=== PATIENT | female | born 1960 | race Caucasian/White ===

== ENCOUNTER 2019-11-27 13:32 | Outpatient (CLI) | payer BC, SELFPAY ==
--- NOTE | 2019-11-27 | XR_ITS ---
WS: [id number] RIGHT SHOULDER: 3 VIEW(S) TECHNIQUE: Internal and external rotation with Y view. HISTORY: MULTIPLE JOINT PAIN COMPARISON: 11/07/2009 No fracture or dislocation or soft tissue abnormality. Glenohumeral and AC joints are unremarkable. Sclerotic lesion in the proximal RIGHT humerus was also partially visualized on the prior study from 2009. Consistent with enchondroma. XR/XR shoulder RT min 2V* [id number] IMPRESSION: 1. No acute abnormality. 2. Proximal RIGHT humeral enchondroma.
--- NOTE | 2019-11-27 | XR_ITS ---
WS: [id number] LEFT SHOULDER: 3 VIEW(S) TECHNIQUE: Internal and external rotation with Y view. HISTORY: MULTIPLE JOINT PAIN COMPARISON: None available. No fracture or dislocation or soft tissue abnormality. Glenohumeral and AC joints are unremarkable. XR/XR shoulder LT min 2V* [id number] IMPRESSION: Normal LEFT shoulder.
== END 2019-11-27 13:33 | disposition home or self-care (01) ==
LOC: RADOUTREAD 11-28 07:25
PROVIDERS: Family Provider Internal Medicine; Visit Provider Internal Medicine
DX: Z76.89 Persons encountering health services in other specified circumstances (principal)

== ENCOUNTER 2019-12-24 14:09 | Outpatient (CLI) | payer BC, SELFPAY ==
--- NOTE | 2019-12-24 14:17 | XR_ITS ---
WS: [id number] SCREENING DEXA SCAN [employer] CLINICAL INFORMATION: POST MENOPAUSAL COMPARISON: None. FINDINGS: The L1-L4 bone mineral density measures 0.917 g/cm2. This corresponds to a T score score of -2.2 and Z score of -1.2. Left femoral neck bone mineral density measures 0.828 g/cm2. This corresponds to a T score of -1.4 an d Z score of -0.6. Right femoral neck bone mineral density measures 0.835 g/cm2. This corresponds to a T score -1.4of an d Z score of -0.6. Mean femoral neck bone mineral density measures 0.831 g/cm2. This corresponds to a T score of -1.4 an d Z score of -0.6. XR/XR DEXA axial skeleton* [id number] IMPRESSION: Osteopenia Patient's FRAX calculated 10 year probability for major osteoporotic fracture i s 18.4 % and osteoporotic hip fracture is 5.5%.
== END 2019-12-24 14:10 | disposition home or self-care (01) ==
LOC: RADWPI 14:13
PROVIDERS: Family Provider Internal Medicine; PCP Internal Medicine; Visit Provider Internal Medicine
DX: Z78.0 Asymptomatic menopausal state (principal)
CPT/HCPCS: 77080

== ENCOUNTER 2020-05-21 09:48 | Emergency (ER) | payer BC, SELFPAY ==
[2020-05-21 09:55] VITALS: BP 142/111; PULSE 83; RESP 18; TEMP 36.9; O2SAT 98; BMI 30.3
--- NOTE | 2020-05-21 09:57 | ED_ITS ---
HPI - Back Pain/Injury General: Chief Complaint: Back Pain/Injury Stated Complaint: BACK PAIN Time Seen by Provider: 05/21/20 09:50 Source: patient Mode of arrival: ambulatory Limitations: no limitations History of Present Illness: HPI Narrative: Patient is a 59-year-old female who presents to ED today with a complaint of lower back pain. Patient tells me she has a history of chronic back pain and has recently seen her PCP for evaluation. Patient was referred to pain management and she has had her initial consultation completed. For insurance purposes they wanted patient to complete a course of physical therapy prior to being accepted to pain management. Patient tells me she began physical therapy recently and states since then her back pain has been excruciating. She is reporting radiation down the bilateral aspects of her posterior thighs. She does tell me over the past few weeks while working she has noticed episodes of urinary incontinence. She is complaining of pain radiating around into her right groin. Patient has not had any episodes of urinary retention. She is not having any bowel incontinence. MD elicited complaint: back pain Pertinent past history: prior back pain Timing: constant Severity: severe Similar Symptoms Previously: Yes Quality: sharp Location: lumbar spine Radiation: left leg below the knee and right leg below the knee Exacerbating factors: movement and walking Relieving factors: none Associated symptoms: Deny abdominal pain, chills, dysuria, fever(s) or urinary urgency Review of Systems Const: Denies: fever(s), chills or body aches Card: Denies: chest pain Resp: Denies: dyspnea GI: Denies: abdominal pain : Reports: urinary incontinence; Denies: flank pain, difficulty voiding, dysuria, urinary frequency, urinary urgency, urinary hesitancy or dribbling Musc: Reports: back pain; Denies: neck pain, joint pain or joint swelling Skin/Breast: Denies: rash Neuro: Reports: sensory changes (tingling to bilateral LEs) PFSH ED PFSH: Family History (Updated 12/09/19 @ 16:06 by Brea Villalba LPN) Mother Diabetes Cancer Dementia Father Diabetes Cancer Denies family history of CAD (coronary artery disease) Clotting disorder Hyperlipidemia Psychiatric illness Chronic kidney disease (CKD) Suicide Anesthesia complication Bleeding disorder Family history of premature coronary artery disease Lung disease Hypertension Stroke Social History Smoking and tobacco status: current every day smoker cigarettes Packs smoked per day: 1 Alcohol intake: never Current occupational status: employed Physical Exam Const: COMMON NORMALS: patient oriented x3, no limitations, alert and well nourished GENERAL APPEARANCE: cooperative OTHER: appears to be in pain HENMT: COMMON NORMALS: normocephalic and atraumatic HEAD & SCALP: normocephalic and atraumatic Resp: COMMON NORMALS: normal respiratory effort and clear to auscultation bilaterally AUSCULTATION: clear to auscultation bilaterally Cardio: COMMON NORMALS: regular rate and regular rhythm RATE: regular rate RHYTHM: regular rhythm : COMMON NORMALS: Yes no CVA tenderness BLADDER/KIDNEY EXAM: Yes no CVA tenderness Back/Pelvis: COMMON NORMALS: no CVA tenderness THORACIC SPINE/UPPER BACK: Yes normal to inspection and Yes thoracic ROM normal LUMBAR SPINE/LOWER BACK: Yes lumbar spinal tenderness (lower L spine) PELVIS: Yes buttocks normal SACROILIAC JOINTS: Yes SI joint(s) abnormal SI joint details: tender to pa lpation Extremity: GENERAL: Yes normal exam except as noted Neuro: COMMON NORMALS: patient oriented x3, moves all extremities, no focal motor deficits and no sensory deficits noted SENSORIUM/ORIENTATION: Yes alert GAIT: Yes Antalgic gait present Skin: COMMON NORMALS: no rashes or lesions noted GENERAL SKIN EXAM: no rashes or lesions noted Course Vital Signs: Vital signs: Vital Signs Temperature 98.5 F 05/21/20 09:55 Pulse Rate 70 05/21/20 11:42 Respiratory Rate 18 05/21/20 11:42 Blood Pressure 147/96 05/21/20 11:42 Pulse Oximetry 96 05/21/20 11:42 MDM - Back Pain/Injury MDM Narrative: Medical decision making narrative: pt feels better here after IV meds; recommend continued follow up with PCP, PT, and pain management Lab Data: Labs: Lab Results 05/21/20 Range/Units 11:25 Urine Color Yellow (Yellow) Urine Appearance Clear (CLEAR) Urine pH 5 (5-7) Ur Specific Gravit y 1.020 (1.005-1.030) Urine Protein Neg (Negative) Urine Glucose (UA) Norm (Normal) Urine Ketones Negative (Negative) Urine Blood Neg (Negative) Urine Nitrate Negative (Negative) Urine Bilirubin Neg (NEGATIVE) Urine Urobilinogen Norm (Negative) mg/dL Ur Leukocyte Nasrin ase Trace H (Negative) Urine RBC 0-4 H (0-2) /hpf Urine WBC 5-10 H (0-5) /hpf Ur Squamous Epith Cells 15-25 H (0-5) Amorphous Sediment Not Reportable Urine Bacteria Trace (NONE) Hyaline Casts 0-4 H Urine Mucus 2+ Imaging Data^: CT lumbar: Radiologist's impression: [address] [place] [address] CT Scan Report Signed Patient: Hayley Chun Unit #: [id number] : 1960 Age/Sex: 59 / F ADM Date: 04/29 02/15 Loc: ER Room/Bed: Attending Dr: Ordering Provider/Ordering MD: Corinna Nunes Date of Service: 05/21/20 Procedure(s): CT lumbar spine wo con* [id number] Accession Number(s): [id number] Report Number: [id number] WS: [id number] CT LUMBAR SPINE, noncontrast. HISTORY: radiculopathy; urinary incontinence; difficulty with ambulation. TECHNIQUE: Contiguous 2.5 mm axial imaging are performed. Sagittal and coronal reformats are submitted and reviewed. All CT scans at [facility] use at least one of these dose optimization techniques: automated exposure control; mA and/or kV adjustment per patient size (includes targeted exams where dose is matched to clinical indication); or iterative reconstruction. IV contrast: None DLP: 2124.22 mGy.cm COMPARISON: 01/05/2012 L5 anterolisthesis by 6 mm. No pars defects. Vertebral body heights are well- preserved. No fractures are identified. There is severe facet joint arthritis at L4-5 and L5- S1 bilaterally. L1-2: Normal. L2-3: Mild annular disc bulging without stenosis. L3-4: Mild annular disc bulging without stenosis. L4-5: Moderate annular disc bulging with slight effacement of ventral CSF. No stenosis. L5-S1: Slight unroofing of the disc due to anterolisthesis. Mild bilateral foraminal narrowing, LEFT greater than RIGHT. Prior cholecystectomy. There is mild breathing motion artifact throughout the retroperitoneum. No abnormality is identified identified taking into consideration the extent of artifact. CT/CT lumbar spine wo con* [id number] IMPRESSION: 1. No significant central or foraminal stenosis. 2. Mild bilateral foraminal stenosis at L5-S1, LEFT greater than RIGHT. 3. Grade 1 anterolisthesis of L5. 4. Severe facet joint arthritis at L4-5 and L5-S1. Dictated By: Caitlin Johnson DO Signed By: Caitlin Johnson DO Signed Date/Time: 05/21/20 1048 DD/ 1043 Discharge Plan Discharge Patient Disposition: Home Clinical Impression: Acute exacerbation of chronic low back pain Condition: Stable Prescriptions: New cyclobenzaprine 10 mg tablet 10 mg PO TID Qty: 14 RF: 0 Medrol ([place]) 4 mg tablets,dose pack See Rx Instructions .ROUTE .COMPLEX Qty: 21 RF: 0 No Action Symbicort 160-4.5 mcg/actuation HFA aerosol inhaler 2 puff INHALATION BID RF: 0 albuterol sulfate [Ventolin HFA] 90 mcg/actuation HFA aerosol inhaler 2 puff INHALATION QID PRN (Reason: Shortness Of Breath) RF: 0 amitriptyline 10 mg tablet 10 mg PO BEDTIME RF: 0 hydrocodone-acetaminophen 5-325 mg tablet 1 - 2 tab PO Q8H PRN (Reason: Pain) RF: 0 alendronate 70 mg tablet 70 mg PO Q7D RF: 0 ibuprofen 200 mg Tablet 600 mg PO PRN RF: 0 omeprazole 20 mg capsule,delayed release(DR/EC) 20 mg PO DAILY RF: 0 Vitamin D3 100 mcg (4,000 unit) Capsule 100 mcg PO DAILY RF: 0 Discharge Orders: Discharge Order (Routine); Ordered 05/21/20 Ordered By: Corinna Nunes Referrals: Adama Zuñiga DO [Primary Care Provider] - Discharge Date/Time: 05/21/20 11:42 Coding Level of Care Code ED Painter Ordnance for Chg Fwd Exam Comprehensive
--- NOTE | 2020-05-21 10:12 | CT_ITS ---
WS: [id number] CT LUMBAR SPINE, noncontrast. HISTORY: radiculopathy; urinary incontinence; difficulty with ambulation. TECHNIQUE: Contiguous 2.5 mm axial imaging are performed. Sagittal and coronal reformats are submitte d and reviewed. All CT scans at [facility] use at least one of these dose optimization te chniques: automated exposure control; mA and/or kV adjustment per patient size (includes targeted exa ms where dose is matched to clinical indication); or iterative reconstruction. IV contrast: None DLP: 2124.22 mGy.cm COMPARISON: 01/05/2012 L5 anterolisthesis by 6 mm. No pars defects. Vertebral body heights are well-preserved. No fractures are identified. There is severe facet joint arthritis at L4-5 and L5-S1 bilaterally. L1-2: Normal. L2-3: Mild annular disc bulging without stenosis. L3-4: Mild annular disc bulging without stenosis. L4-5: Moderate annular disc bulging with slight effacement of ventral CSF. No stenosis. L5-S1: Slight unroofing of the disc due to anterolisthesis. Mild bilateral foraminal narrowing, LEFT greater than RIGHT. Prior cholecystectomy. There is mild breathing motion artifact throughout the retroperitoneum. No abn ormality is identified identified taking into consideration the extent of artifact. CT/CT lumbar spine wo con* [id number] IMPRESSION: 1. No significant central or foraminal stenosis. 2. Mild bilateral foraminal stenosis at L5-S1, LEFT greater than RIGHT. 3. Grade 1 anterolisthesis of L5. 4. Severe facet joint arthritis at L4-5 and L5-S1.
--- NOTE | 2020-05-21 10:29 | PC.NURSE ---
pt to CT by stretcher with tech
[2020-05-21] MEDS: orphenadrine 30 mg/mL Inj 2 mL 60 MG IVP (10:39)
[2020-05-21] MEDS: dexamethasone 4 mg/mL INJ 8 MG IVP (10:39)
[2020-05-21] MEDS: ketorolac 30 mg/mL INJ IVP (10:39)
[2020-05-21 10:49] VITALS: O2SAT 97
[2020-05-21 11:16] VITALS: BP 144/97; PULSE 70; RESP 18; O2SAT 95
[2020-05-21 11:42] VITALS: BP 147/96; PULSE 70; RESP 18; O2SAT 96
[2020-05-21 11:46] LABS: Add Urine Microscopic? YES; Bilirubin Urine Neg (NEGATIVE); Blood Urine Neg (Negative); Glucose Urine UA Norm (Normal); Ketones Urine Negative (Negative); Leukocyte Esterase Urine Trace (Negative); Nitrate Urine Negative (Negative); Protein Urine Neg (Negative); Urine Appearance Clear (CLEAR); Urine Color Yellow (Yellow); Urobilinogen Urine Norm (Negative); pH Urine 5 (5-7)
[2020-05-21 11:59] LABS: Bacteria Urine TRACE; Mucus Urine 2+; RBC Urine 0-4 /hpf (0-2); Squamous Epithelial Cell Urine 15-25 (0-5)
[2020-05-21 12:00] LABS: Add Urine Culture? No; Hyaline Casts Urine 0-4
== END 2020-05-21 11:42 | disposition home or self-care (01) ==
PROVIDERS: Emergency Provider Physician Assistant; PCP Internal Medicine
DX: G89.29 Other chronic pain (principal); M54.5 Low back pain; F17.210 Nicotine dependence, cigarettes, uncomplicated
CPT/HCPCS: 12345; 72131; 81001; 81003; 96374; 96375; 99283; J1100; J1885; J2360

== ENCOUNTER → 2022-04-10 09:50 | Outpatient (BNVA) | payer OTHER, SELFPAY | PROVIDERS: PCP Internal Medicine; Referring Provider Internal Medicine; Visit Provider Internal Medicine Rheumatology | DX: M25.50 Pain in unspecified joint (principal); I77.6 Arteritis, unspecified; M19.90 Unspecified osteoarthritis, unspecified site; M15.9 Polyosteoarthritis, unspecified; M47.816 Spondylosis without myelopathy or radiculopathy, lumbar region; R21 Rash and other nonspecific skin eruption | CPT/HCPCS: 72170; 73130; 73630; 86036 ==

== ENCOUNTER 2022-06-19 14:10 | Outpatient (CLI) | payer OTHER, SELFPAY ==
--- NOTE | 2022-06-19 14:16 | XR_ITS ---
WS: [id number] SCREENING DEXA SCAN [employer] CLINICAL INFORMATION: OSTEOPOROSIS COMPARISON: December 24, 2019 FINDINGS: The L1-L4 bone mineral density measures 0.987 g/cm2. This corresponds to a T score score of -1.6 and Z score of -0.5. Left femoral neck bone mineral density measures 0.837 g/cm2. This corresponds to a T score of -1.4 an d Z score of -0.5. Right femoral neck bone mineral density measures 0.864 g/cm2. This corresponds to a T score -1.1of an d Z score of -0.3. Mean femoral neck bone mineral density measures 0.850 g/cm2. This corresponds to a T score of -1.2 an d Z score of -0.4. XR/XR DEXA axial skeleton* [id number] IMPRESSION: Osteopenia lumbar spine and femoral necks. Patient's FRAX calculated 10 year probability for major osteoporotic fracture i s 13.0 % and osteoporotic hip fracture is 4.0%. Bone mineral density in the lumbar spine has increased +7.6% since 2019. Bone mineral density in the femoral necks increased +2.3% since 2020.
== END 2022-06-19 14:11 | disposition home or self-care (01) ==
LOC: RAD 14:11
PROVIDERS: PCP Internal Medicine; Visit Provider Internal Medicine
DX: M81.0 Age-related osteoporosis without current pathological fracture (principal); M85.88 Other specified disorders of bone density and structure, other site
CPT/HCPCS: 77080

== ENCOUNTER 2022-07-26 12:56 | Outpatient (CLI) | payer OTHER, SELFPAY ==
--- NOTE | 2022-07-26 13:16 | MM_ITS ---
WS: [id number] VIEWS: MLO and CC views both breasts. 3D digital tomosynthesis is also included in this exam. Comparison made with prior exam of 06/17/2019. Findings: There was no sign of mass, architectural distortion or suspicious calcification in either breast. Fa [place]ty MM/[place] [id number] Impression: BI-RADS: 1-Negative FOLLOW-UP: 1 Year Follow-up This mammogram was also analyzed by the Computer Aided Detection System R2 Imag e Management Department Chair.
== END 2022-07-26 12:57 | disposition home or self-care (01) ==
LOC: RAD 12:57
PROVIDERS: PCP Family Medicine; Visit Provider Family Medicine
DX: Z12.31 Encounter for screening mammogram for malignant neoplasm of breast (principal)
CPT/HCPCS: 77063; 77067

== ENCOUNTER → 2022-08-11 11:52 | Outpatient (BNVA) | payer OTHER, SELFPAY | PROVIDERS: PCP Family Medicine; Visit Provider Family Medicine | DX: R07.9 Chest pain, unspecified (principal); J45.909 Unspecified asthma, uncomplicated | CPT/HCPCS: 80053; 83735; 84443; 85025 ==

== ENCOUNTER 2022-08-25 20:52 | Emergency (ER) | payer OTHER, SELFPAY ==
[2022-08-25 21:09] VITALS: BP 167/92; PULSE 75; RESP 16; TEMP 36.4; O2SAT 96; BMI 31.1
--- NOTE | 2022-08-25 21:13 | ECG_ITS ---
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
--- NOTE | 2022-08-25 21:58 | XRR_ITS ---
PROCEDURE INFORMATION: Exam: XR Chest Exam date and time: 08/25/2022 10:34 PM Age: 61 years old Clinical indication: Pain; Chest pressure; Additional info: Cp TECHNIQUE: Imaging protocol: Radiologic exam of the chest. Views: 1 view. COMPARISON: CR XR shoulder RT min 2V* [id number] 11/27/2019 1:33 PM FINDINGS: Lungs: Unremarkable. No consolidation. Pleural spaces: Unremarkable. No pleural effusion. No pneumothorax. Heart/Mediastinum: Unremarkable. No cardiomegaly. Bones/joints: Unremarkable. XR/XR chest 1V portable [id number] IMPRESSION: No acute findings.
[2022-08-25 22:24] LABS: Basophils # 0.1 10^3/uL (0.0-0.1); Basophils % 0.6 %; Eosinophils # 0.2 10^3/uL (0.0-0.8); Eosinophils % 2.5 %; Hematocrit 44.6 % (37.0-47.0); Hemoglobin 14.5 g/dL (11.5-15.3); Lymphocytes # 2.8 10^3/uL (0.8-4.8); Lymphocytes % 29.4 %; Mean Corpuscular HGB Conc 32.5 g/dL (30.0-36.0); Mean Corpuscular Hemoglobin 28.4 pg (28.0-34.0); Mean Corpuscular Volume 87.5 fl (81-99); Mean Platelet Volume 11.2 fL (7.4-10.4); Monocytes # 0.7 10^3/uL (0.2-0.9); Monocytes % 7.2 %; Neutrophils # 5.69 10^3/uL (1.8-7.7); Neutrophils % 60.1 %; Nucleated Red Blood Cells % 0 %; Platelet Count 286 10^3/cmm (130-400); Red Cell Distribution Width 13.2 % (12.1-15.1); White Blood Count 9.5 10^3/uL (4.0-10.0)
--- NOTE | 2022-08-25 22:26 | W.ED.CHESTPA ---
HPI - Chest Pain General: Chief Complaint: Chest Pain Stated Complaint: cp, jaw pain, high bp Time Seen by Provider: 08/25/22 21:30 Source: patient History of Present Illness: 61-year-old female with no prior history of coronary disease. She has been having chest discomfort with shortness of breath on and off for a couple of weeks. She has an outpatient stress test scheduled for next week. She presents today, because she was more short of breath than she has been. She continues to experience some chest discomfort. She denies fever. She notes that she has had a tremor lately. She denies recent illness otherwise. She complains of heart pounding type symptoms with these episodes as well MD complaint: chest pain Pertinent past history: other Onset (ago): week(s) Timing of current episode: episodic Prior episodes: Yes Onset: during rest Pain location: substernal Pain radiation: neck, jaw/teeth and other Quality: tightness and aching Relieving factors: nothing Exacerbating factors: nothing Associated symptoms: Reports dyspnea and palpitations; Deny abdominal pain, diaphoresis, fever(s), leg edema, nausea, syncope or vomiting Treatment prior to arrival: none Review of Systems Const: Denies: fever(s) or diaphoresis ENMT: Denies: throat pain, odynophagia, nasal congestion or sinus pain Card: Reports: chest pain and palpitations; Denies: syncope Resp: Reports: dyspnea; Denies: productive cough or non-productive cough GI: Denies: abdominal pain, nausea or vomiting Musc: Reports: neck pain Neuro: Reports: headache(s) PFSH ED PFSH: Medical History Asthma COPD (chronic obstructive pulmonary disease) Degenerative joint disease (DJD) of lumbar spine GERD (gastroesophageal reflux disease) High risk for hip fracture Joint pain Migraines Osteoarthritis, generalized Osteopenia Skin rash Tobacco use Surgical History History of appendectomy History of cholecystectomy History of hysterectomy with bilateral oophorectomy Hx of eye surgery Family History Mother Diabetes Cancer Dementia Father Diabetes Cancer Brother Diabetes Denies family history of CAD (coronary artery disease) Clotting disorder Hyperlipidemia Psychiatric illness Chronic kidney disease (CKD) Suicide Anesthesia complication Bleeding disorder Family history of premature coronary artery disease Lung disease Hypertension Stroke Social History Smoking and tobacco status: current every day smoker cigarettes Packs smoked per day: 1 Years cigarettes smoked: 43 Alcohol intake: never Lives independently: Yes Household members: spouse Marital status: Current occupational status: employed 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 Physical Exam Const: GENERAL APPEARANCE: cooperative and anxious; not ill appearing HENMT: COMMON NORMALS: normocephalic, atraumatic and Normal external nose present HEAD & SCALP: normocephalic and atraumatic FACE & SINUS: normal facial exam and face symmetric NOSE: Normal external nose present Eye: COMMON NORMALS: Equal, round and reactive pupils present and EOMs intact bilaterally PUPIL: Yes Equal, round and reactive pupils present Neck/C-Spine: GENERAL: Yes trachea midline Chest: CHEST: Yes Symmetrical chest wall rise Resp: COMMON NORMALS: normal respiratory effort, No use of accessory muscles and clear to auscultation bilaterally AUSCULTATION: clear to auscultation bilaterally Cardio: COMMON NORMALS: regular rate and regular rhythm RATE: regular rate RHYTHM: regular rhythm GI: COMMON NORMALS: Normal to inspection, nondistended, normoactive bowel sounds present and Soft to palpation PALPATION: Yes Soft to palpation Neuro: WILFRED COMA SCALE: document GCS findings [place] coma scale eye opening: Spontaneous [place] coma scale verbal response: Orientated [place] coma scale motor response: Obey commands Wilfred coma scale total score: 15 Psych: COMMON NORMALS: mental status grossly normal and cooperative Skin: COMMON NORMALS: no rashes or lesions noted GENERAL SKIN EXAM: no rashes or lesions noted Course Vital Signs: Vital signs: Vital Signs Temperature 97.5 F L 08/25/22 21:09 Pulse Rate 73 08/26/22 02:18 Respiratory Rate 22 H 08/26/22 02:18 Blood Pressure 158/80 08/26/22 02:18 Pulse Oximetry 94 08/26/22 01:39 Oxygen Delivery Me thod 08/26/22 01:39 MDM - Chest Pain Medical Decision Making 61-year-old female with bouts of significant chest discomfort. They seem to come and go a bit. She has had hypertension on and off as well. She has had a couple of episodes in the ER. She was given morphine, which seems to help. She was also given nebulizer treatment which she believes helped as well. Besides hypertension, her vitals have been stable. Blood pressure has been near normal at times. Her EKG shows a normal sinus rhythm with normal axis and intervals. Rate is 70. There are no acute ST changes. Her troponin was 9 at baseline and 7.1 at 120 minutes. CBC is not remarkable. BMP is normal. Chest x-ray is not remarkable. On the second time she had a bout of crushing chest pain in the ER, with some hypertension, aortic dissection was considered. CTA of the chest was ordered and shows no pneumonia, PE, or dissection. She does have some peribronchial inflammation suggestive of bronchitis. She will be treated for this, especially since she improved with her breathing treatment she has an outpatient stress test scheduled next week, and she has been asked to keep that appointment. She knows to return for any return of her chest pain. Lab Data : 08/25/22 22:19 08/25/22 22:19 Radiology Impressions Chest X-Ray 08/25/22 21:58 IMPRESSION: No acute findings. Chest CTA 08/25/22 23:49 IMPRESSION: 1. Negative for pulmonary embolism. 2. Suspect small airways disease. 3. Acute a chronic bronchitis cannot be excluded. Laboratory Results WBC 9.5 10^3/uL (4.0-10.0) 08/25/22 22:19 RBC 5.10 10^6/uL (4.1-5.3) 08/25/22 22:19 Hgb 14.5 g/dL (11.5-15.3) 08/25/22 22:19 Hct 44.6 % (37.0-47.0) 08/25/22 22:19 MCV 87.5 fl (81-99) 08/25/22 22:19 MCH 28.4 pg (28.0-34.0) 08/25/22 22:19 MCHC 32.5 g/dL (30.0-36.0) 08/25/22 22:19 RDW 13.2 % (12.1-15.1) 08/25/22 22:19 Plt Count 286 10^3/cmm (130-400) 08/25/22 22:19 MPV 11.2 fL (7.4-10.4) H 08/25/22 22:19 Neut % (Auto) 60.1 % 08/25/22 22:19 Lymph % (Auto) 29.4 % 08/25/22 22:19 [place] % (Auto) 7.2 % 08/25/22 22:19 Eos % (Auto) 2.5 % 08/25/22 22:19 Baso % (Auto) 0.6 % 08/25/22 22:19 Neut # (Auto) 5.69 10^3/uL (1.8-7.7) 08/25/22 22:19 Lymph # (Auto) 2.8 10^3/uL (0.8-4.8) 08/25/22 22:19 [place] # (Auto) 0.7 10^3/uL (0.2-0.9) 08/25/22 22:19 Eos # (Auto) 0.2 10^3/uL (0.0-0.8) 08/25/22 22:19 Baso # (Auto) 0.1 10^3/uL (0.0-0.1) 08/25/22 22:19 Nucleated RBC % (auto) 0 % 08/25/22 22:19 Nucleated RBCs # 0.0 /100WBC 08/25/22 22:19 PT 13.40 SECONDS (12.1-14.9) 08/25/22 22:33 INR 0.99 (0.8-1.2) 08/25/22 22:33 APTT 30.0 SECONDS (23.9-36.7) 08/25/22 22:33 Sodium 137 mmol/L (136-145) 08/25/22 22:19 Potassium 4.1 mmol/L (3.5-5.1) 08/25/22 22:19 Chloride 102 mmol/L (98-107) 08/25/22 22:19 Carbon Dioxide 24 mmol/L (22-29) 08/25/22 22:19 Anion Gap 15.1 (5-19) 08/25/22 22:19 BUN 11 mg/dL (8-23) 08/25/22 22:19 Creatinine 0.7 mg/dL (0.5-0.9) 08/25/22 22:19 GFR Calculation 84.5 mL/min (90-130) L 08/25/22 22:19 Glucose 101 mg/dL (65-115) 08/25/22 22:19 Calculated Osmolality 284 mOsm/kg (285-295) L 08/25/22 22:19 Calcium 9.4 mg/dL (8.5-10.5) 08/25/22 22:19 Magnesium 2.1 mg/dL (1.7-2.3) 08/25/22 22:19 Total Bilirubin 0.6 mg/dL (0.15-1.2) 08/25/22 22:19 AST 21 U/L (0-32) 08/25/22 22:19 ALT 22 U/L (0-33) 08/25/22 22:19 Alkaline Phosphatase 92 U/L (35-105) 08/25/22 22:19 Troponin T Baseline 9 ng/L (0-10) 08/25/22 22:19 Troponin T 120 Minute 7.10 ng/L (0-10) 08/26/22 00:50 Delta Troponin T -1.90 ABS# (0-10) L 08/26/22 00:50 NT-Pro-B Natriuret Pep 124 pg/mL (0-125) 08/25/22 22:19 Total Protein 7.4 g/dL (6.6-8.7) 08/25/22 22:19 Albumin 4.5 g/dL (3.5-5.2) 08/25/22 22:19 Globulin 2.9 g/dL (1.3-4.6) 08/25/22 22:19 TSH 2.05 uIU/mL (0.27-4.20) 08/25/22 22:19 Discharge Plan Discharge Patient Disposition: Home Clinical Impression: Chest pain, Bronchitis Condition: Stable Prescriptions: New doxycycline hyclate 100 mg tablet 100 mg PO BID 7 Days Qty: 14 0RF Medrol ([place]) 4 mg tablets,dose pack See Rx Instructions .ROUTE .COMPLEX Qty: 21 0RF Rx Instructions: orally per package directions No Action Symbicort 160-4.5 mcg/actuation HFA aerosol inhaler 2 puff INHALATION BID albuterol sulfate [Ventolin HFA] 90 mcg/actuation HFA aerosol inhaler 2 puff INHALATION QID PRN (Reason: Shortness Of Breath) Centrum Women 18-400 mg-mcg tablet 1 tab PO DAILY meloxicam 15 mg tablet 15 mg PO DAILY hydrocodone-ibuprofen 7.5-200 mg tablet 1 tab PO Q6H PRN sertraline 50 mg tablet PO pimecrolimus 1 % cream topical alendronate 70 mg tablet 70 mg PO Q7D Rx Instructions: PT STATES SHE TAKES ON SUNDAYS omeprazole 20 mg capsule,delayed release(DR/EC) 20 mg PO DAILY Vitamin D3 100 mcg (4,000 unit) Capsule 100 mcg PO DAILY Discharge Orders: Discharge ED (Routine); Ordered 08/26/22 Ordered By: Luis Fermin Referrals: Tarah Aquino MD [Primary Care Provider] - 1-3 days Discharge Diet: Advance as tolerated Discharge Activity: Increase activity as tolerated Patient Instructions: Chest Pain (ED), Acute Bronchitis (ED), Opioid Safety, Pain Management Activity Restrictions/Additional Instructions: Use your inhaler every 4 hours while awake for the next 48 hours, then as needed. Other medications as directed. Return for worsening chest pain despite treatment, worsening shortness of breath despite treatment, fever greater than 100 despite 2 or 3 doses of antibiotics, any other concerning symptoms. Keep your appointment for your stress test. Measure your blood pressure twice daily and report numbers to your doctor. Coding Level of Care Code ED Calculus Professor for [place] Fwd Exam Comprehensive
[2022-08-25] MEDS: morphine 4 mg/mL SDV 1 mL IVP ×2 (22:49→23:53)
[2022-08-25] MEDS: ondansetron 2 mg/ML SDV 2 mL 4 MG IVP ×2 (22:49→23:53)
[2022-08-25 22:55] LABS: INR 0.99 (0.8-1.2)
[2022-08-25 22:56] LABS: Troponin(5th) Baseline 9 ng/L (0-10)
[2022-08-25 23:02] LABS: Alanine Aminotransferase 22 U/L (0-33); Albumin Level 4.5 g/dL (3.5-5.2); Alkaline Phosphatase 92 U/L (35-105); Anion Gap 15.1 (5-19); Aspartate Amino Transferase 21 U/L (0-32); Blood Urea Nitrogen 11 mg/dL (8-23); Calcium 9.4 mg/dL (8.5-10.5); Carbon Dioxide 24 mmol/L (22-29); Chloride 102 mmol/L (98-107); Creatinine Clr Calc Pharmacy 76.1209; Globulin 2.9 g/dL (1.3-4.6); Glomerular Filtration Rate 84.5 mL/min (90-130); Glucose 101 mg/dL (65-115); Magnesium 2.1 mg/dL (1.7-2.3); NT Pro B Type Natriuretic Pept 124 pg/mL (0-125); Osmolality Calculated 284 mOsm/kg (285-295); Potassium 4.1 mmol/L (3.5-5.1); Sodium 137 mmol/L (136-145); Thyroid Stimulating Hormone 2.05 uIU/mL (0.27-4.20); Total Bilirubin 0.6 mg/dL (0.15-1.2); Total Protein 7.4 g/dL (6.6-8.7)
--- NOTE | 2022-08-25 23:49 | CTR_ITS ---
PROCEDURE INFORMATION: Exam: CTA Chest With Contrast Exam date and time: 08/26/2022 12:22 AM Age: 61 years old Clinical indication: Pain; Chest pressure; Additional info: HTN, chest pain TECHNIQUE: Imaging protocol: Computed tomographic angiography of the chest with contrast. 3D rendering (Not supervised by radiologist): MIP and/or 3D reconstructed images were created by the technologist. Radiation optimization: All CT scans at this facility use at least one of these dose optimization techniques: automated exposure control; mA and/or kV adjustment per patient size (includes targeted exams where dose is matched to clinical indication); or iterative reconstruction. Contrast material: OMNI 350; Contrast volume: 100 ml; Contrast route: INTRAVENOUS (IV); COMPARISON: CR (CHEST, ) 08/25/2022 10:34 PM RADIATION DOSE METRICS: Total DLP (mGy-cm): 386.78 FINDINGS: Pulmonary arteries: Normal. No pulmonary emboli. Aorta: Unremarkable. No aortic aneurysm. No aortic dissection. Lungs: Mosaic attenuation changes of the lung parenchyma. Negative for consolidation. Mild bronchial wall thickening. No peripheral honeycombing. Pleural spaces: Unremarkable. No pneumothorax. No pleural effusion. Heart: Unremarkable. No cardiomegaly. No pericardial effusion. Lymph nodes: Unremarkable. No enlarged lymph nodes. Gallbladder and bile ducts: Cholecystectomy. Mildly dilated common bile duct. Bones/joints: Unremarkable. No acute fracture. Soft tissues: Unremarkable. CT/CT angio chest PE protcl [id number] IMPRESSION: 1. Negative for pulmonary embolism. 2. Suspect small airways disease. 3. Acute a chronic bronchitis cannot be excluded.
--- NOTE | 2022-08-25 23:54 | ECG_ITS ---
[facility] Test Date: 2022-08-25 Pat Name: Hayley Chun Department: Room: Gender: Female Community Support Associate: : 1960 Requested By: Luis Roy Order Number: [id number] Ej MD: Guerita Farah M.D. Measurements Intervals Beeler Rate: 69 P: 71 CO: 148 QRS: 21 QRSD: 75 T: 11 QT: 391 QTc: 421 Interpretive Statements SINUS RHYTHM Compared to ECG 08/25/2022 21:13:21 No significant changes Electronically Signed On 08-26-2022 7:47:41 CDT by Guerita Farah M.D. [id number]
--- NOTE | 2022-08-25 23:57 | PC.NURSE ---
PT pushed call light and stated she was having sudden, severe chest paib. It was not radiating and it was not making her nauseas. Dr notified. EKG ran. Morphine and zofran given.
[2022-08-26] MEDS: lidocaine 2% viscous 15 ML, aluminum-mag hydrox-simethicon 30 ML, sucralfate oral liq 1 GM PO (00:05)
[2022-08-26] MEDS: iohexol 350 mg/mL 100 mL Btl IV (00:28)
[2022-08-26 00:50] VITALS: PULSE 67; RESP 16
[2022-08-26 01:39] VITALS: PULSE 65; RESP 15; O2SAT 94
[2022-08-26 01:45] VITALS: PULSE 66
[2022-08-26] MEDS: doxycycline 100 mg Tablet PO (02:08)
[2022-08-26 02:18] VITALS: BP 158/80; PULSE 73; RESP 22
== END 2022-08-26 02:19 | disposition home or self-care (01) ==
PROVIDERS: Emergency Provider Emergency Medicine; PCP Family Medicine
DX: R07.9 Chest pain, unspecified (principal); J40 Bronchitis, not specified as acute or chronic; J44.9 Chronic obstructive pulmonary disease, unspecified; F17.210 Nicotine dependence, cigarettes, uncomplicated
CPT/HCPCS: 36415; 71045; 71275; 80053; 83735; 83880; 84443; 84484; 85025; 85610; 85730; 93005; 94640; 96374; 96375; 96376; 99285; J2270; J2405; J2930; J3535; Q9967

== ENCOUNTER 2022-09-27 05:36 | Day surgery (SDC) | payer OTHER, SELFPAY ==
[2022-09-25 10:49] VITALS: BMI 31.4
[2022-09-27 06:11] VITALS: BP 134/78; PULSE 72; RESP 18; TEMP 36.1; O2SAT 97
--- NOTE | 2022-09-27 06:22 | P.ANESASSM_ITS ---
Pre-Anesthetic Assessment Height/Weight: Height 1.55 m Weight 75.296 kg Temp Pulse Resp BP Pulse Ox O2 Del Method 97 F L 72 18 134/78 97 09/27/22 06:11 09/27/22 06:11 09/27/22 06:11 09/27/22 06:11 09/27/22 06:11 09/27/22 06:11 Preop Diagnosis: Screening Operation Date: 09/27/22 07:00 Proposed Procedures p Colonoscopy 43850,Z12.11(Not Applicable) - Dada Anderson DO Familial anesthetic complications: None Was Beta Zak taken within 24 hours: N/A Was Clonidine taken within 24 hours: N/A Last intake: Intake Last Liquid Date 09/26/22 Last Liquid Time 20:30 Last Solid Date 09/25/22 Last Solid Time 17:30 Social Tobacco and No alcohol 1 pack(s) per day Exam alert, oriented x 3, clear to auscultation bilaterally (Diminished bilaterally) and regular rate & rhythm Airway Submandibular: within normal limits Cervical ROM: within normal limits Mallampati: Class III Dentition: false (Upper and implants on bottom) History/ROS No significant history except as noted and No significant complaints Pulmonary Chronic Obstructive Pulmonary Disease, Cough (Dry, nonproductive), Exertional Dyspnea and Upper Respiratory Infection (Bronchitis one month ago) CV/HEM Hypertension None reported Hepatic None reported GI Gastroesophageal Reflux Disease (Controlled with medication, none this AM) Metabolic None reported Musc/skel Lower Back Pain, Osteoarthritis/DJD and Scoliosis Neuropsych Anxiety, Depression and Neuropathy Anesthetic Plan ASA status: 3 Anesthesia: General and MAC Risk of > 500 ml blood loss (7ml/kg in children): No Medications/Allergies Home Medications Medication Instructions Recorded Confirmed Last Taken Type budesonide-formoterol HFA 160 2 puff inhalation BID 12/09/19 09/25/22 09/27/22 History mcg-4.5 mcg/actuation aerosol inhaler (Symbicort) alendronate 70 mg tablet 70 mg PO Q7D 05/21/20 09/25/22 09/26/22 History cholecalciferol (vitamin D3) 100 100 mcg PO DAILY 05/21/20 09/25/22 09/26/22 History mcg (4,000 unit) capsule (Vitamin D3) omeprazole 20 mg capsule,delayed 20 mg PO DAILY 05/21/20 09/25/22 09/26/22 History release meloxicam 15 mg tablet 15 mg PO DAILY 07/20/22 09/25/22 09/26/22 History pimecrolimus 1 % topical cream See Rx Instructions .Route 08/11/22 09/25/22 1 Week Ago History .COMPLEX rash ~09/18/22 albuterol sulfate 90 mcg/actuation 2 puff inhalation QID PRN 09/04/22 09/25/22 09/27/22 Rx aerosol inhaler (Ventolin HFA) Shortness Of Breath #8.5 grams Allergies Allergy/AdvReac Type Severity Reaction Status Date / Time montelukast [From Singulair] Allergy Severe tongue Verified 09/06/22 12:50 swelling chlorzoxazone Allergy ALGY-Rash Verified 09/06/22 12:50 [From Parafon Forte DSC] Sulfa (Sulfonamide Allergy ALGY-Hives Verified 09/06/22 12:50 Antibiotics) PFSH Anesthesia Medical History Asthma COPD (chronic obstructive pulmonary disease) Degenerative joint disease (DJD) of lumbar spine GERD (gastroesophageal reflux disease) High risk for hip fracture Joint pain Migraines Osteoarthritis, generalized Osteopenia Skin rash Tobacco use Surgical History History of appendectomy History of cholecystectomy History of hysterectomy with bilateral oophorectomy Hx of eye surgery Family History Mother Diabetes Cancer Dementia Father Diabetes Cancer Brother Diabetes Denies family history of CAD (coronary artery disease) Clotting disorder Hyperlipidemia Psychiatric illness Chronic kidney disease (CKD) Suicide Anesthesia complication Bleeding disorder Family history of premature coronary artery disease Lung disease Hypertension Stroke Social History Smoking and tobacco status: current every day smoker cigarettes Packs smoked per day: 1 Years cigarettes smoked: 43 Alcohol intake: never Lives independently: Yes Household members: spouse Marital status: Current occupational status: employed 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
[2022-09-27] MEDS: sodium chloride 0.9% 1,000 ML 30 ML IV (06:24)
--- NOTE | 2022-09-27 07:05 | PM.HP ---
Providers/Chief Complaint Primary Care Provider: Tarah Aquino MD Chief Complaint: Z12.11 encounter for screening History of Present Illness Hayley Chun is a 61 year old female here for EGD and colonoscopy L Medications/Allergies Home Medications Medication Instructions Recorded Confirmed Last Taken Type budesonide-formoterol HFA 160 2 puff inhalation BID 12/09/19 09/25/22 09/27/22 History mcg-4.5 mcg/actuation aerosol inhaler (Symbicort) alendronate 70 mg tablet 70 mg PO Q7D 05/21/20 09/25/22 09/26/22 History cholecalciferol (vitamin D3) 100 100 mcg PO DAILY 05/21/20 09/25/22 09/26/22 History mcg (4,000 unit) capsule (Vitamin D3) omeprazole 20 mg capsule,delayed 20 mg PO DAILY 05/21/20 09/25/22 09/26/22 History release meloxicam 15 mg tablet 15 mg PO DAILY 07/20/22 09/25/22 09/26/22 History pimecrolimus 1 % topical cream See Rx Instructions .Route 08/11/22 09/25/22 1 Week Ago History .COMPLEX rash ~09/18/22 albuterol sulfate 90 mcg/actuation 2 puff inhalation QID PRN 09/04/22 09/25/22 09/27/22 Rx aerosol inhaler (Ventolin HFA) Shortness Of Breath #8.5 grams Allergies Allergy/AdvReac Type Severity Reaction Status Date / Time montelukast [From Singulair] Allergy Severe tongue Verified 09/06/22 12:50 swelling chlorzoxazone Allergy ALGY-Rash Verified 09/06/22 12:50 [From Parafon Forte DSC] Sulfa (Sulfonamide Allergy ALGY-Hives Verified 09/06/22 12:50 Antibiotics) PFSH Acute PFSH: Medical History Asthma COPD (chronic obstructive pulmonary disease) Degenerative joint disease (DJD) of lumbar spine GERD (gastroesophageal reflux disease) High risk for hip fracture Joint pain Migraines Osteoarthritis, generalized Osteopenia Skin rash Tobacco use Surgical History History of appendectomy History of cholecystectomy History of hysterectomy with bilateral oophorectomy Hx of eye surgery Family History Mother Diabetes Cancer Dementia Father Diabetes Cancer Brother Diabetes Denies family history of CAD (coronary artery disease) Clotting disorder Hyperlipidemia Psychiatric illness Chronic kidney disease (CKD) Suicide Anesthesia complication Bleeding disorder Family history of premature coronary artery disease Lung disease Hypertension Stroke Social History Smoking and tobacco status: current every day smoker cigarettes Packs smoked per day: 1 Years cigarettes smoked: 43 Alcohol intake: never Lives independently: Yes Household members: spouse Marital status: Current occupational status: employed 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
[2022-09-27 07:38] VITALS: BP 113/80; PULSE 70; RESP 12; TEMP 36.1; O2SAT 100
[2022-09-27 07:50] VITALS: BP 120/71; PULSE 67; RESP 16; O2SAT 97
--- NOTE | 2022-09-27 14:54 | ANE.PACU2 ---
Inpatient post-anesthesia follow up: Airway intact: Yes Vital signs: Temperature 97 F Pulse Rate 67 Respiratory Rate 16 Blood Pressure 120/71 Pulse Oximetry 97 Oxygen Delivery Me thod Room Air Oxygen Flow Rate Fraction of Inspir ed Oxygen Hydration adequate: Yes Nausea and vomiting: No Pain level: 1 Mental status: Baseline
== END 2022-09-27 08:04 | disposition home or self-care (01) ==
PROVIDERS: PCP Family Medicine; Visit Provider Surgery
PROC: 0DJD8ZZ Inspection of Lower Intestinal Tract, Via Natural or Artificial Opening Endoscopic (ICD-10-PCS; CPT 45378; principal; 2022-09-27 07:00)
DX: Z12.11 Encounter for screening for malignant neoplasm of colon (principal); K63.5 Polyp of colon; D12.8 Benign neoplasm of rectum; K21.9 Gastro-esophageal reflux disease without esophagitis; J45.909 Unspecified asthma, uncomplicated; J44.9 Chronic obstructive pulmonary disease, unspecified; M81.0 Age-related osteoporosis without current pathological fracture; F17.210 Nicotine dependence, cigarettes, uncomplicated; I10 Essential (primary) hypertension
CPT/HCPCS: 45385; 88305; J0330; J2704; J3490; J7030

== ENCOUNTER 2022-09-29 08:38 | Outpatient (CLI) | payer OTHER, SELFPAY ==
[2022-09-29 08:50] VITALS: BMI 31.5
--- NOTE | 2022-09-29 09:29 | ECG_ITS ---
[facility] Test Date: 2022-09-29 Pat Name: Hayley Chun Department: Room: Gender: Female Beef Killer: : 1960 Requested By: Tarah Aquino Order Number: [id number] Pagan MD: Guerita Farah M.D. Interpretive Statements NAME OF STUDY: LEXISCAN SESTAMIBI STRESS TEST INDICATION: Chest Pain PROCEDURE: At the baseline, the blood pressure was 136/76 mm Hg with a heart rate of 77 bpm. The electrocardiogram showed sinus rhythm, normal axis and normal ST and T's. ??? The Lexiscan was infused over a period of 20 seconds. A total of 0.4 milligrams of Lexiscan was infused. The stress phase was continued for a total of 5 minutes. Heart rate at the end of the stress phase was 93 bpm with a blood pressure of 150/84 mm Hg. The EKG at the peak infusion revealed sinus rhythm with no significant ST and T wave changes. ??? Sestamibi was injected 20 seconds after the Lexiscan infusion. ??? Blood pressure at the end of the recovery phase was 146/88 mm Hg with a heart rate of 83 beats per minute. ??? CONCLUSION: 1. Normal EKG response to LexiScan infusion. 2. No LexiScan induced chest pain or cardiac arrhythmia. 3. Normal blood pressure and heart rate response. 4. Sestamibi/sestamibi perfusion scan pending; see separate report. Electronically Signed On 09-30-2022 11:02:50 TOBACCO WRAPPING MACHINE TENDER by Guerita Farah M.D. [id number]
--- NOTE | 2022-09-29 09:30 | NMCV_ITS ---
NM [place] perf SPECT r/s* [id number] Hayley Chun Age: 61 Gender: F : 1960 Exam Date: 09/29/2022 10:02 Ordering Phys: Tarah Aquino MD Technologist: PRAVEEN Neal Exam Location: [facility] Indications: CHEST PAIN STRESS TEST [facility] IMAGE PROTOCOL Rest/Stress 1 Lexiscan Day Radiopharmaceutical Dose (mCi) Administration Site Administered by Rest: Tc-99m 9.9 IV PRAVEEN Silva Sestamibi Stress:Tc-99m 32.8 IV PRAVEEN Silva Sestamibi Rest: 29-Sep-2022 60 Discovery 630 Stress: 29-Sep-2022 30 Discovery 630 0.4mg Lexiscan. Images obtained in supine and prone position. SPECT RESULTS Technical Quality: Excellent Raw Data Analysis: Normal Image Corrections: No attenuation or motion correction applied Summed Stress Score: 0 Summed Rest Score: 2 Summed Difference Score: 0 PERFUSION FINDINGS SPECT images demonstrate homogeneous tracer distribution throughout the myocardium. FUNCTIONAL RESULTS (calculated via Gated SPECT) Stress Image LV EF (%): 85 Stress EDV (mL):52 TID: 0.83 Stress ESV (mL):8 FUNCTIONAL FINDINGS: The left ventricle is normal in size. Transient Ischemia Dilatation of 0.83. There is hyperdynamic left ventricular global systolic function. The left ventricular ejection fraction is normal with a value of 85%. There is hyperdynamic left ventricular wall thickening. IMPRESSIONS 1. Myocardial perfusion imaging is normal. 2. Overall left ventricular systolic function is hyperdynamic without regional wall motion abnormalities, LVEF=85%. 3. EKG portion of the study will be reported separately. 4. Scan indicates low risk for cardiac events. Guerita Farah MD (Electronically Signed) Final Date: 03 October 2022 13:36 S
[2022-09-29] MEDS: regadenoson 0.4 Mg/5 ml Syringe IVP (11:17)
[2022-09-29 11:40] VITALS: BP 146/88; PULSE 83
== END 2022-09-29 08:39 | disposition home or self-care (01) ==
PROVIDERS: PCP Family Medicine; Visit Provider Family Medicine
DX: R07.9 Chest pain, unspecified (principal)
CPT/HCPCS: 36415; 78452; 93017; 96374; 96375; A9500; J2785

== ENCOUNTER → 2023-01-17 13:45 | Outpatient (BNVA) | payer OTHER, SELFPAY | PROVIDERS: PCP Family Medicine; Visit Provider Family Medicine | DX: G62.9 Polyneuropathy, unspecified (principal); I10 Essential (primary) hypertension; K21.9 Gastro-esophageal reflux disease without esophagitis; J45.909 Unspecified asthma, uncomplicated; Z91.89 Other specified personal risk factors, not elsewhere classified; M15.9 Polyosteoarthritis, unspecified; Z63.0 Problems in relationship with spouse or partner | CPT/HCPCS: 80048; 82607; 83036; 84443 ==

== ENCOUNTER → 2023-03-14 14:21 | Outpatient (BNVA) | payer OTHER, SELFPAY | PROVIDERS: PCP Family Medicine; Visit Provider Podiatrist Foot & Ankle Surgery | DX: M25.572 Pain in left ankle and joints of left foot (principal); M79.89 Other specified soft tissue disorders | CPT/HCPCS: 73610 ==

== ENCOUNTER 2023-04-04 07:18 | Outpatient (CLI) | payer OTHER, SELFPAY ==
--- NOTE | 2023-04-04 08:00 | MR_ITS ---
WS: [id number] MRI LEFT ANKLE without CONTRAST. COMPARISON: Radiographs 03/14/2023 Multiplanar, multisequence imaging is performed without contrast. History: Cyst over the lateral LEFT ankle. No injury. Pain. Marker is placed along the lateral ankle at the site of the palpable abnormality. There is no underly ing mass or cyst identified at this location. No change in the signal. There is a small amount of natividad ma but this is diffuse around the ankle. The muscle appears normal. Peroneal tendons are normal. Flexor and extensor tendons are normal. Achilles tendon is normal. No ale int effusion. No osteochondral lesions. Tibiotalar joint is mildly narrowed but there is no edema. No loose body. MR/MR ankle LT con* [id number] IMPRESSION: 1. No soft tissue mass or cyst along the lateral ankle at the site of the palp able marker. 2. Mild diffuse soft tissue edema. 3. No tendinopathy or fractures. No joint effusion.
== END 2023-04-04 07:19 | disposition home or self-care (01) ==
PROVIDERS: PCP Family Medicine; Visit Provider Podiatrist Foot & Ankle Surgery
DX: M79.89 Other specified soft tissue disorders (principal)
CPT/HCPCS: 73721

== ENCOUNTER → 2023-04-10 14:11 | Outpatient (BNVA) | payer OTHER, SELFPAY | PROVIDERS: PCP Family Medicine; Visit Provider Family Medicine | DX: R53.83 Other fatigue (principal); M79.10 Myalgia, unspecified site; Z79.899 Other long term (current) drug therapy | CPT/HCPCS: 80053; 82306; 82607; 85025; 85651; 86038; 86140; 86431 ==

== ENCOUNTER 2023-05-21 14:22 | Outpatient (CLI) | payer OTHER, SELFPAY ==
--- NOTE | 2023-05-21 14:33 | XRR_ITS ---
PROCEDURE INFORMATION: Exam: XR Right Hip Exam date and time: 05/21/2023 2:36 PM Age: 62 years old Clinical indication: Hip pain; Right hip; Additional info: Right hip pain TECHNIQUE: Imaging protocol: Radiologic exam of the right hip. Views: 1 view hip with pelvis when performed. COMPARISON: CR XR pelvis 1-2V* [id number] 04/10/2022 11:21 AM FINDINGS: Bones/joints: Mild degenerative changes right hip joint consisting of mild joint space narrowing and subchondral sclerosis. Stable small oval shaped calcification adjacent to the greater trochanter likely degenerative in nature. No fracture or malalignment. Soft tissues: Otherwise unremarkable. XR/XR hip RT 2-3V wo/w pel* [id number] IMPRESSION: Mild degenerative changes right hip joint. No acute bony abnormalities.
== END 2023-05-21 14:23 | disposition home or self-care (01) ==
PROVIDERS: PCP Family Medicine; Visit Provider Family Medicine
DX: M25.551 Pain in right hip (principal); M24.9 Joint derangement, unspecified
CPT/HCPCS: 73502

== ENCOUNTER 2023-06-22 11:38 | Outpatient (RCR) | payer OTHER, SELFPAY | END 2023-06-28 23:59 | disposition home or self-care (01) | LOC: SPT 11:38 | PROVIDERS: PCP Family Medicine; Visit Provider Student in an Organized Health Care Education/Training Program | DX: S73.191D Other sprain of right hip, subsequent encounter (principal); X58.XXXD Exposure to other specified factors, subsequent encounter | CPT/HCPCS: 97110; 97163; G0283 ==

== ENCOUNTER 2023-06-29 06:00 | Outpatient (RCR) | payer OTHER, SELFPAY | END 2023-07-27 13:18 | disposition home or self-care (01) | LOC: SPT 06:00 | PROVIDERS: PCP Family Medicine; Visit Provider Student in an Organized Health Care Education/Training Program | DX: S73.191D Other sprain of right hip, subsequent encounter (principal); X58.XXXD Exposure to other specified factors, subsequent encounter | CPT/HCPCS: 97110; 97530 ==

== ENCOUNTER → 2023-07-19 12:51 | Outpatient (BNVA) | payer OTHER, SELFPAY | PROVIDERS: PCP Family Medicine; Referring Provider Student in an Organized Health Care Education/Training Program; Visit Provider Orthopaedic Surgery | DX: M43.16 Spondylolisthesis, lumbar region (principal); M47.816 Spondylosis without myelopathy or radiculopathy, lumbar region | CPT/HCPCS: 72100 ==

== ENCOUNTER 2023-08-09 06:42 | Outpatient (CLI) | payer OTHER, SELFPAY ==
--- NOTE | 2023-08-09 07:15 | MR_ITS ---
WS: [id number] MRI LUMBAR SPINE NONCONTRAST TECHNIQUE: Sagittal T1, T2 and STIR imaging. Axial T1 and T2 imaging. CLINICAL INFORMATION: lumbar pain COMPARISON: MRI 2020 FINDINGS: Small riblets at T12. 4 lumbar type vertebral bodies with grade 1 anterolisthesis L3 on L4 and L4 on L5. L5 is sacralized. Recommend plain film correlation prior to surgical intervention. T12-L1: Mild facet arthropathy. Spinal canal and foramen are patent. L1-L2: Mild facet arthropathy. Spinal canal and foramen are patent. L2-L3: Mild annular bulging. Mild facet arthropathy. Spinal canal and foramen are patent. L3-L4: Grade 1 anterolisthesis. Mild annular bulging with narrowing of the subarticular recess bilate rally. Mild central canal stenosis. Moderate facet arthropathy with small facet effusions. Mild LEFT greater than RIGHT foraminal narrowing. L4-L5: Grade 1 anterolisthesis. Mild annular bulging with a shallow RIGHT pericentral disc osteophyte protrusion. Slight encroach on the RIGHT L5 nerve root. Spine canal and foramen are patent. Moderate facet arthropathy. L5-S1: L5 is sacralized. Spinal canal and foramen are patent. Visualized pelvic bony structures: Normal. Paravertebral soft tissues: Normal. IMPRESSION: 1. Small riblets at T12. 4 lumbar type vertebral bodies with grade 1 anterolisthesis L3 on L4 and L 4 on L5. L5 is sacralized. Recommend plain film correlation prior to surgical intervention. 2. Mild annular bulging L2-L3 and L3-L4. Slight narrowing of the subarticular recess L3-4 with mild central canal stenosis. This appears progressed compared to 2020. 3. Tiny RIGHT paracentral disc osteophyte protrusion L4-5 slightly encroaches on the traversing RIGH T L5 nerve root. 4. Mild LEFT L3-4 foraminal narrowing. 5. Moderate facet arthropathy worse at L3-4 with small facet effusions. Moderate facet arthropathy L 5-S1.
== END 2023-08-09 06:43 | disposition home or self-care (01) ==
LOC: RAD 06:45
PROVIDERS: PCP Family Medicine; Visit Provider Orthopaedic Surgery
DX: M47.817 Spondylosis without myelopathy or radiculopathy, lumbosacral region (principal); M51.36 Other intervertebral disc degeneration, lumbar region; M48.061 Spinal stenosis, lumbar region without neurogenic claudication; M25.78 Osteophyte, vertebrae
CPT/HCPCS: 72148

== ENCOUNTER → 2023-08-14 08:37 | Outpatient (BNVA) | payer OTHER, SELFPAY | PROVIDERS: PCP Family Medicine; Visit Provider Physician Assistant | DX: M43.16 Spondylolisthesis, lumbar region (principal); M16.11 Unilateral primary osteoarthritis, right hip | CPT/HCPCS: 72110 ==

== ENCOUNTER → 2023-09-17 11:34 | Outpatient (BNVA) | payer OTHER, SELFPAY | PROVIDERS: PCP Family Medicine; Visit Provider Family Medicine | DX: Z01.818 Encounter for other preprocedural examination (principal) | CPT/HCPCS: 80053; 85025 ==

== ENCOUNTER → 2023-10-02 10:54 | Outpatient (BNVA) | payer OTHER, SELFPAY | PROVIDERS: PCP Family Medicine; Visit Provider Student in an Organized Health Care Education/Training Program | DX: Z01.818 Encounter for other preprocedural examination (principal); M16.11 Unilateral primary osteoarthritis, right hip | CPT/HCPCS: 80323; 81001 ==

== ENCOUNTER 2023-10-05 06:35 | Outpatient (CLI) | payer OTHER, SELFPAY ==
--- NOTE | 2023-10-05 07:00 | CT_ITS ---
WS: [id number] CT RIGHT hip, noncontrast HISTORY: RIGHT TOTAL HIP ARTHROPLASTY TECHNIQUE: Protocol for [facility] total hip replacement has been obtained. This includes axial imaging thr ough the RIGHT hip, RIGHT knee . DLP: 823.98 mGy COMPARISON: None available. Marked facet joint arthritis in the lower lumbar spine. Mild osteopenia. No significant joint space n arrowing. No osseous destruction. Moderate calcified plaque in the visualized femoral arteries. Very slight lateral subluxation of each patella. No osseous destruction. IMPRESSION: CT imaging provided for [facility] robotic total hip replacement.
== END 2023-10-05 06:36 | disposition home or self-care (01) ==
LOC: RAD 06:36
PROVIDERS: PCP Family Medicine; Visit Provider Student in an Organized Health Care Education/Training Program
DX: M16.11 Unilateral primary osteoarthritis, right hip (principal); M85.88 Other specified disorders of bone density and structure, other site
CPT/HCPCS: 73700

== ENCOUNTER → 2023-10-09 11:20 | Outpatient (BNVA) | payer OTHER, SELFPAY | PROVIDERS: PCP Family Medicine; Visit Provider Family Medicine | DX: Z01.818 Encounter for other preprocedural examination (principal) | CPT/HCPCS: 81003 ==

== ENCOUNTER 2023-10-10 10:44 | Observation (INO) | payer OTHER, SELFPAY ==
[2023-10-10] VITALS (16 sets, daily range): BP systolic 100–143; BP diastolic 63–93; PULSE 78–102; RESP 16–95; TEMP 36.1–37.1; O2SAT 92–100; BMI 29.9
[2023-10-10] MEDS: sodium chloride 0.9% 1,000 ML 30 ML IV (06:22)
[2023-10-10] MEDS: lactated ringers 500 ML IV (06:23)
[2023-10-10] MEDS: ketorolac 30 mg/mL INJ IVP (06:23)
[2023-10-10] MEDS: acetaminophen 1,000 MG/100 ML PIGGYBACK 400 MG IV ×3 (06:24→22:58)
[2023-10-10] MEDS: scopolamine 1.5 Patch 1 PATCH TRANSDERMA (06:25)
[2023-10-10 06:39] LABS: Basophils # 0.1 10^3/uL (0.0-0.1); Basophils % 0.8 %; Eosinophils # 0.2 10^3/uL (0.0-0.8); Eosinophils % 2.4 %; Hematocrit 44.4 % (36-47); Lymphocytes # 2.2 10^3/uL (0.8-4.8); Lymphocytes % 25.5 %; Mean Corpuscular HGB Conc 32.4 g/dL (30-55); Mean Corpuscular Hemoglobin 27.3 pg (27-33); Mean Corpuscular Volume 84.3 fl (85-98); Mean Platelet Volume 11.3 fL (7.4-10.4); Monocytes # 0.9 10^3/uL (0.2-0.9); Monocytes % 10.1 %; Neutrophils # 5.24 10^3/uL (1.8-7.7); Nucleated Red Blood Cells % 0 %; Platelet Count 303 10^3/cmm (157-399); Red Blood Count 5.27 10^6/uL (3.85-5.65); Red Cell Distribution Width 13.3 % (12.1-15.1)
[2023-10-10 06:54] LABS: Anion Gap 16.1 (5-19); Blood Urea Nitrogen 12 mg/dL (8-23); Calcium 9.6 mg/dL (8.5-10.5); Carbon Dioxide 25 mmol/L (22-29); Chloride 101 mmol/L (98-107); Glucose 128 mg/dL (65-115); Osmolality Calculated 287 mOsm/kg (285-295); Potassium 4.1 mmol/L (3.5-5.1); Sodium 138 mmol/L (136-145)
--- NOTE | 2023-10-10 06:54 | P.HPUD_ITS ---
Surgery/Procedure H&P Update DATE OF PROCEDURE: October 10, 2023 DATE H&P PERFORMED: 10/02/23 H&P UPDATE INFORMATION: I have reviewed H&P completed within last 30 days, I have examined patient prior to procedure and No changes to prior documentation CHANGES TO PREVIOUS DOCUMENTATION: No change HPI from last office visit. Patient had a UA performed yesterday which showed no bacteria in her urine, no signs of urinary tract infection. 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 Plan to proceed with a right total hip arthroplasty Tushar robotic assisted anterior approach PREOP DIAGNOSIS: Right hip AVN PRIMARY INDICATION FOR PROCEDURE: Right hip AVN PLANNED PROCEDURE: Operation Date: 10/10/23 07:00 Proposed Procedures p Tushar Robot Anterior Hip Arthroplasty(Right) - Ricky Magana DO
--- NOTE | 2023-10-10 06:56 | ANES.PREANE2 ---
Pre-Anesthetic Assessment Height/Weight: Height 1.57 m Weight 74.389 kg Temp Pulse Resp BP Pulse Ox O2 Del Method 97.7 F 78 18 143/93 94 Room Air 10/10/23 06:06 10/10/23 06:06 10/10/23 06:06 10/10/23 06:06 10/10/23 06:06 10/10/23 06:11 Preop Diagnosis: Right hip AVN Operation Date: 10/10/23 07:00 Proposed Procedures p Tushar Robot Anterior Hip Arthroplasty(Right) - Ricky Magana DO Familial anesthetic complications: None Was Beta Zak taken within 24 hours: N/A Was Clonidine taken within 24 hours: N/A Last intake: Intake Last Liquid Date 10/09/23 Last Liquid Time 21:00 Last Solid Date 10/09/23 Last Solid Time 18:00 Social No alcohol and No tobacco quit smoking last montn Exam alert, oriented x 3, clear to auscultation bilaterally and regular rate & rhythm Airway Mallampati: Class I Dentition: false and other (implants) Pulmonary Asthma (mild) CV/HEM Hypertension GI Gastroesophageal Reflux Disease Anesthetic Plan ASA status: 2 Anesthesia: Choice Risk of > 500 ml blood loss (7ml/kg in children): Yes, adequate IV access and fluids planned Medications/Allergies Home Medications Medication Instructions Recorded Confirmed Last Taken Type cholecalciferol (vitamin D3) 100 100 mcg PO DAILY 05/21/20 10/09/23 10/04/23 History mcg (4,000 unit) capsule (Vitamin D3) meloxicam 15 mg tablet 15 mg PO DAILY #90 tabs 05/09/23 10/10/23 Unknown Rx oxycodone 10 mg tablet 10 mg PO BID PRN Pain 06/07/23 10/09/23 10/10/23 History omeprazole 20 mg capsule,delayed See Rx Instructions .Route 07/23/23 10/09/23 10/10/23 Rx release .COMPLEX #90 caps alprazolam 0.25 mg tablet 0.25 mg PO DAILY PRN anxiety #20 09/04/23 10/10/23 Unknown Rx tabs duloxetine 30 mg capsule,delayed 30 mg PO DAILY 10/02/23 10/09/23 10/10/23 History release Allergies Allergy/AdvReac Type Severity Reaction Status Date / Time montelukast [From Singulair] Allergy Severe tongue Verified 10/09/23 11:28 swelling chlorzoxazone Allergy ALGY-Rash Verified 10/09/23 11:28 [From Artie Douglas DSC] Sulfa (Sulfonamide Allergy ALGY-Hives Verified 10/09/23 11:28 Antibiotics) Current Medications Generic Name Dose Route Start Last Admin Trade Name Freq PRN Reason Stop Dose Admin Sodium Chloride 1,000 mls @ 30 mls/hr 10/10/23 06:00 10/10/23 06:22 Sodium Chloride 0.9% IV 10/11/23 05:59 30 mls/hr .Q24H KOKO Administration PFSH Anesthesia Medical History Hypertension Tubular adenoma of colon Tobacco use High risk for hip fracture Osteopenia GERD (gastroesophageal reflux disease) Skin rash Degenerative joint disease (DJD) of lumbar spine Osteoarthritis, generalized Migraines COPD (chronic obstructive pulmonary disease) Asthma Joint pain Surgical History Hx of eye surgery History of hysterectomy with bilateral oophorectomy History of appendectomy History of cholecystectomy Family History Mother Diabetes Cancer Dementia Father Diabetes Cancer Brother Diabetes Denies family history of CAD (coronary artery disease) Clotting disorder Hyperlipidemia Psychiatric illness Chronic kidney disease (CKD) Suicide Anesthesia complication Bleeding disorder Family history of premature coronary artery disease Lung disease Hypertension Stroke Social History Smoking and tobacco/nicotine status: current every day tobacco/nicotine user cigarettes Packs smoked per day: 1 Years cigarettes smoked: 43 Alcohol intake: never Substance/Drug Use: never Lives independently: Yes Household members: spouse Marital status: Current occupational status: employed 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
[2023-10-10] MEDS: ceFAZolin 2,000 MG in sodium chloride 0.9% (plus) 50 ML 100 MG IV ×3 (07:02→22:57)
[2023-10-10] MEDS: tranexamic acid 1,000 mg/10mL SDV 1000 MG IV (07:52)
[2023-10-10] MEDS: vancomycin 1,000 MG SDV 1000 MG XX (08:11)
[2023-10-10] MEDS: lidocaine-epi 1% 20 mL INJ INJECTION (08:11)
--- NOTE | 2023-10-10 10:20 | XR_ITS ---
WS: [id number] Exam: XR hip RT 2-3V wo/w pel* [id number] Date/Time of Exam: 10/10/2023 10:35 AM Reason For Exam: post op MIKI RIGHT total hip arthroplasty noted in satisfactory position. Postoperative changes in the adjacent so ft tissues. IMPRESSION: 1. RIGHT total hip arthroplasty in satisfactory position.
--- NOTE | 2023-10-10 10:21 | PM.OP ---
Operative Report Date of procedure: October 10, 2023 Surgeon: Ricky Magana DO [employer] [facility] Advisor: Kirill Magana PA-C: PA was necessary for assistance in this case with patient and leg positioning, retraction and protection of neurovascular structures as well as assistance in implantation wound closure and dressing application. Procedure: Preoperative diagnosis: Right hip AVN Post-op diagnosis: Same Procedure done: Right total hip arthroplasty?Tushar robotic assisted?anterior?approach Implants: Hever Trident acetabular shell size 48 mm Hever acetabular screw 25 mm Hever acetabular screw 25 mm Accolade II 127 degree size 5? femur stem Trident 0 degree polyethylene 36 degree inner diameter 36 mm femoral head ceramic +0 mm Surgeon: Ricky Magana DO Anesthesia: Other (Spinal) Estimated blood loss: 450 mL IV fluids: 1300 mL Complications: None Findings: See operative report narrative Condition: stable Disposition: floor Brief History: Patient is a 62-year-old female presented to my outpatient office setting findings consistent with severe hip AVN with MRI confirmation and femoral head flattening.? We talked about treatment options as far as nonoperative and operative intervention. Pt has failed conservative treatment.? Patient's right hip AVN has been so severe she has been minimally ambulatory over the past couple months given her pain and decreased range of motion.? we talked about treatment options at this point time pt understands the risk benefits complication alternatives surgical nonsurgical treatment options.? Patient understands the risk of surgery and agrees to proceed.? Patient has underwent a preoperative evaluation. Pt cleared for surical intervention. Pt understood and was agreeable to proceed with a right total hip arthroplasty consent was reviewed and signed with patient.?? All questions answered.? Patient will be admitted postoperatively. Procedure: Patient was seen evaluated in the preoperative holding area.? Consent was reviewed and signed with patient.? Correct operative extremity was then marked. ? All questions were answered at this time.? Once cleared by anesthesia used to brought back to the operative suite he then underwent anesthesia per the anesthesia department of a spinal anesthetic. The patient was administered tranexamic acid and preop antibiotics, and placed in the supine position. All bony prominences were properly padded, securely fixed to the table, and administered?general?anesthetic. The patient was subsequently transferred from the hospital bed to the [place] table. Bilateral lower extremities were placed in the traction boots. The pelvis was well approximated against the perineal post.? Final timeout performed.? Patient received appropriate preoperative antibiotics. Both hips were then prepped and draped in a normal orthopedic fashion.? Started with a small incision 2 fingerbreadths above the ASIS on the left iliac wing to place? pelvic arrays.? Small incision was made directly down to bone.? 3 pelvic pins were placed with excellent fixation.? The robotic array was secured to the nonoperative iliac wing using sterile technique. The extremity was then definitively draped in standard, sterile fashion.? The array was found to be visible by the robot. ?A standard??anterior?supine approach was performed to the?operative hip joint. The skin was incised down to the tensor fascia sam muscle and fascia. Fascia was split longitudinally in line with its fibers. The tensor fascia sam muscle was retracted laterally. The appropriate retractors were placed superiorly. Lateral circumflex vessels were identified and appropriately ligated. The hip capsule was then identified.? Appropriate retractors were placed superiorly and inferiorly along the capsule directly onto bone.??That was split longitudinally up to the acetabular rim in line with the femoral neck. The femoral capsule was found to be significantly hypertrophic, thickened, and significantly fibrotic. The capsule was then elevated both superiorly and inferiorly down to the lesser trochanter as well as up towards the greater trochanter.? Tag stitches were applied with 0 Vicryl into the capsule.? Femoral check point was?then inserted and confirmed on the lateral trochanter proximal femur.? .? A distal marker?of a sterile EKG lead was placed into the distal femur for measurement of leg lengths.? Preoperative leg lengths were registered and confirmed at this point. Next the appropriate-sized neck cut was then performed after being measured with robotic assistance. Femoral head was removed atraumatically this was found to have significant AVN of femoral head with complete cartilage loss and femoral head flattening.? Femoral head was found to be severely degenerated and flattening with, eburnated bone. Acetabulum was also inspected and was found to have noticeble wear and cartilage loss.? Appropriate retractors were then placed in the?anterior?and posterior wall.? The remaining labrum was then excised from the periphery of the acetabular rim. Pulvinar was excised.? At this point registration for the Tushar was performed on the acetabular side and confirmed. Once confirmed, any osteophytes able to be were removed. We planned 40 degrees of lateral opening and 20 degrees of anteversion. At this point, we reamed and medialized to the inner wall of the acetabulum with a size?48?reamer for line to line fit.?The acetabulum was found to have good bleeding bone throughout.?? Reamer removed excellent bleeding bone circumferentially with sufficient?anterior?and posterior wall. ?The definitive acetabular cup 48 mm was inserted and impacted under?Tushar guidance with the appropriate amount of anteversion and lateral opening. It was then secured with 2x 6.5 mm cancellous screws in appropriate safe zone position.? I subsquently drilled measured and place appropriate length acetabular screws which measured 25 mm and 25 mm.? These had excellent fixation final x-rays were taken of the acetabular work and showed a seated and well fixed acetabular cup with appropriate position acetabular screws.? ?Next a 36-mm X3 neutral liner was impacted into the?acetabular shell and secured. Hip was then irrigated with copious amounts of irrigation. At this point, the remaining femoral releases were then performed allowing the adequate mobilization of the?right?femur.? Traction was confirmed to being off to the right lower extremity and the femur was then externally rotated, extended, and adducted giving adequate exposure of the proximal femur in the surgical wound. Box cut was then used to enter the intramedullary canal of the?femur. Canal finder was placed down the canal of the?operative femur. Appropriate-sized broaches from a size 0 up to a size 5 were impacted down the operative femoral canal with the appropriate amount of anteversion.? A multiple trials were attempted and it was found?that?+0mm neck was found to be most appropriate for a soft tissue tensioning offset, stability and the leg lengths?that was confirmed with Tushar. ?Stability was then assessed and excellent stability with patient external rotation of greater?than 90 degrees and traction with no evidence of hip instability.? Appropriate tension noted of the soft tissues. At this point, the hip was relocated.?Tushar guidance was again used to confirm appropriate leg lengths.? I utilized C arm to evaluate for leg lengths as well I did slightly at the lengthen comparative to the contralateral extremity but this was the appropriate size for patient's stability and excellent soft tissue tensioning as well as this was mapped with her preoperative planning given she had been significantly shortened given her arthritis.? Operative hip was then re-dislocated using a bone hook. All trials were then removed from the?operative femur. Adequate exposure was then once again obtained. The trials were removed. The definitive Accolade II stem size 5 was impacted down the?femoral canal with the appropriate amount of anteversion. The appropriate sized head 36 mm ceramic +0 mm was impacted onto the trunnion, and the?operative?hip was then relocated with traction and internal rotation. Final measurements were obtained on Tushar confirming leg lengths and offset.? Once again hip stability was assessed and found to have excellent stability and appropriate soft tissue tensioning.? Hip was irrigated with copious amounts of irrigation.? Vancomycin powder was placed within the wound bed for added infection prophylaxis.? The superior and inferior leaflets of the capsule were then closed with Ethibond suture.? Vicryl tag stitches were removed.? The superficial layer of the tensor fascia sam fascia was closed using 0 stratafix suture in a running fashion.? Subcutaneous tissues were closed with running 3-0 Stratafix, skin was closed with 4-0 monocryl.?Surgical Prineo glue and steri strips were?applied and covered with a optsite dressing to the operative side.?The incision on the non-operative side for the robotic array was irrigated and closed with layered fashion of 0 Vicryl, 2-0 Vicryl and running Monocryl suture and surgical glue and covered with Cesar dressing. ?The patient was subsequently awoken per Anesthesia and transferred to PACU in satisfactory condition. ?Leg lengths and rotational profile were found to be appropriate. ? DISPOSITION: The patient will be admitted to the hospital for initiation of DVT prophylaxis, physical therapy, pain control. The patient is to weight bear as tolerated.?Anterior?hip precautions, postoperative antibiotics,?postoperative TXA and Eliquis?for DVT prophylaxis.? Patient will receive appropriate discharge instructions as well as pain medication postoperatively and will follow up in my office in 2 weeks.? Patient with work with PT/OT.? Internal medicine will be consulted for medical management
--- NOTE | 2023-10-10 10:39 | W.PM.BPON ---
Date of Procedure: [October 10, 2023] Surgeon: [Dr. Magana DO] Reconnaissance Man(s): [Kirill Magana PA-C] Procedure(s) performed: [Right anterior total hip arthroplasty with Tushar robotic assist] Findings of the procedure(s): [AVN of right hip] Estimated blood loss: [450 ml] Specimen(s) removed: [Right femoral head] Post-operative diagnosis: [AVN of right hip]
--- NOTE | 2023-10-10 10:42 | PM.PACU ---
PACU note Narrative: Patient is a 62-year-old female that just underwent a anterior right total hip arthroplasty. Pt transferred to PACU in stable condition. Dressing is dry. Exam is limited due to patient still somnolent and under effect of anesthesia. Unable to assess sensation and motor. Distal pulses are palpable toes are warm and well-perfused. Cap refill is normal and under 2 seconds. Sensation to foot is intact. Pain is controlled. Exam: unarousable Disposition: admitted
[2023-10-10] MEDS: fentaNYL 50 mcg/mL INJ 2mL IVP (10:55)
--- NOTE | 2023-10-10 11:10 | ANE.PACU2 ---
Inpatient post-anesthesia follow up: Airway intact: Yes Vital signs: Temperature 97 F Pulse Rate 102 Respiratory Rate 20 Blood Pressure 114/76 Pulse Oximetry 94 Oxygen Delivery Me thod Room Air Oxygen Flow Rate 6 Fraction of Inspir ed Oxygen Hydration adequate: Yes Nausea and vomiting: No Pain level: 1 Mental status: Baseline
[2023-10-10] MEDS: chlorhexidine gluconate 0.12% Btl 473 mL 30 ML MUCOUS MEM ×3 (14:03→20:59)
[2023-10-10] MEDS: lactated ringers 1,000 ML 100 ML IV (14:32)
[2023-10-10] MEDS: ketorolac 30 mg/mL INJ 15 MG IVP (14:34)
[2023-10-10] MEDS: tranexamic acid 1,000 MG/100 ML PREMIX 600 MG IV (16:46)
[2023-10-10] MEDS: sennosides-docusate Tablet 2 TAB PO (16:59)
[2023-10-10] MEDS: calcium carb-vit d 600mg/400unit 1 Tablet 1 EACH PO (17:00)
[2023-10-10] MEDS: iron polysaccharide complex 150 mg Capsule PO (17:00)
[2023-10-10] MEDS: mupirocin oint 22 gm 1 APPLIC NASAL (17:01)
[2023-10-10] MEDS: ondansetron 2 mg/ML SDV 2 mL 4 MG IVP (17:09)
[2023-10-10] MEDS: oxyCODONE 5 mg IR Tab/Cap PO (20:58)
--- NOTE | 2023-10-10 23:21 | P.CONIM_ITS ---
Providers/Reason For Consult 2 Consulting Physician/Specialty*: Oliver Ramos Reason for Consult*: Medical management Attending Physician: Ricky Magana DO Primary Care Provider: Tarah Aquino MD History of Present Illness History of Present Illness Hayley Chun is a 62 year old female w/ 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 Post op, she has 5-6/10 pain. She got up and worked w/ PT, walking 150ft. She became nauseous after consuming too much water, and she vomited. She denies fever, chills, abdominal pain, constipation, diarrhea. She denies f/c, SOB, CP, and palpitations. She is coughing because she quit smoking 30days ago prior to surgery and is not used to lying on her back. The hospitalist service was consulted for general medical management. History of Present Illness Current symptoms: Reports vomiting; Denies abdominal pain Associated symptoms: Reports nausea; Denies diarrhea Review of Systems 2 Const: Denies: fever(s) or chills Eyes: Denies: change in vision or blurry vision ENMT: Reports: nasal discharge and nasal congestion; Denies: ear or mastoid pain Card: Denies: chest pain or palpitations Resp: Denies: dyspnea or productive cough GI: Reports: nausea and vomiting; Denies: abdominal pain, diarrhea, constipation, hematochezia or melena : Denies: difficulty voiding, urinary frequency, urinary urgency or hematuria Musc: Reports: joint pain (R. hip) Skin/Breast: Denies: rash or new lesions Neuro: Denies: headache(s) or dizziness Psych: Denies: anxiety, depression, suicidal ideation or homicidal ideation Endo: Denies: cold intolerance or heat intolerance Geovanny/Lymph: Reports: easy bruising; Denies: easy bleeding All/Imm: Reports: tongue swelling Medications/Allergies Home Medications Medication Instructions Recorded Confirmed Last Taken Type cholecalciferol (vitamin D3) 100 100 mcg PO DAILY 05/21/20 10/09/23 10/04/23 History mcg (4,000 unit) capsule (Vitamin D3) meloxicam 15 mg tablet 15 mg PO DAILY #90 tabs 05/09/23 10/10/23 Unknown Rx oxycodone 10 mg tablet 10 mg PO BID PRN Pain 06/07/23 10/09/23 10/10/23 History omeprazole 20 mg capsule,delayed See Rx Instructions .Route 07/23/23 10/09/23 10/10/23 Rx release .COMPLEX #90 caps alprazolam 0.25 mg tablet 0.25 mg PO DAILY PRN anxiety #20 09/04/23 10/10/23 Unknown Rx tabs duloxetine 30 mg capsule,delayed 30 mg PO DAILY 10/02/23 10/09/23 10/10/23 History release Allergies Allergy/AdvReac Type Severity Reaction Status Date / Time montelukast [From Singulair] Allergy Severe tongue Verified 10/09/23 11:28 swelling chlorzoxazone Allergy ALGY-Rash Verified 10/09/23 11:28 [From Artie Douglas DSC] Sulfa (Sulfonamide Allergy ALGY-Hives Verified 10/09/23 11:28 Antibiotics) Current Medications Generic Name Dose Route Start Last Admin Trade Name Freq PRN Reason Stop Dose Admin Calcium Carbonate 1 each 10/10/23 18:00 10/10/23 17:00 Calcium Carb-Vit D 600mg/400unit 1 Tablet PO 1 each BID KOKO Administration Chlorhexidine Gluconate 30 ml 10/10/23 13:00 10/10/23 20:59 Chlorhexidine Gluconate 0.12% Btl 473 Ml MUCOUS MEM 30 ml QID KOKO Administration Acetaminophen 1,000 mg in 100 mls @ 400 mls/hr 10/10/23 14:30 10/10/23 22:58 Acetaminophen IV 10/11/23 06:44 400 mls/hr Q8H KOKO Administration Cefazolin Sodium 2,000 mg/ 50 mls @ 100 mls/hr 10/10/23 15:00 10/10/23 22:57 Sodium Chloride IV 10/11/23 07:29 100 mls/hr Q8H KOKO Administration Protocol Lactated Ringer's 1,000 mls @ 100 mls/hr 10/10/23 11:15 10/10/23 14:32 Lactated Ringers IV 100 mls/hr .Q10H KOKO Administration Ketorolac Tromethamine 15 mg 10/10/23 11:15 10/10/23 14:34 Ketorolac 30 Mg/Ml Inj IVP 15 mg Q6H PRN Administration MODERATE TO SEVERE PAIN Mupirocin 1 applic 10/10/23 18:00 10/10/23 17:01 Mupirocin Oint 22 Gm NASAL 10/15/23 17:59 1 applic BID KOKO Administration Ondansetron HCl 4 mg 10/10/23 11:15 10/10/23 17:09 Ondansetron 2 Mg/Ml Sdv 2 Ml IVP 4 mg Q6H PRN Administration NAUSEA AND VOMITING Oxycodone HCl 5 - 10 mg 10/10/23 20:15 10/10/23 20:58 Oxycodone 5 Mg Ir Tab/Cap PO 10 mg Q4H PRN Administration MODERATE PAIN Polysaccharide Iron Complex 150 mg 10/10/23 18:00 10/10/23 17:00 Iron Polysaccharide Complex 150 Mg Capsule PO 150 mg BIDWM KOKO Administration Senna/Docusate Sodium 2 tab 10/10/23 18:00 10/10/23 16:59 Sennosides-Docusate Tablet PO 2 tab BID KOKO Administration PFSH Acute 2 PFSH: Medical History Hypertension Tubular adenoma of colon Tobacco use High risk for hip fracture Osteopenia GERD (gastroesophageal reflux disease) Skin rash Degenerative joint disease (DJD) of lumbar spine Osteoarthritis, generalized Migraines COPD (chronic obstructive pulmonary disease) Asthma Joint pain Surgical History Hx of eye surgery History of hysterectomy with bilateral oophorectomy History of appendectomy History of cholecystectomy Family History Mother Diabetes Cancer Dementia Father Diabetes Cancer Brother Diabetes Denies family history of CAD (coronary artery disease) Clotting disorder Hyperlipidemia Psychiatric illness Chronic kidney disease (CKD) Suicide Anesthesia complication Bleeding disorder Family history of premature coronary artery disease Lung disease Hypertension Stroke Social History Smoking and tobacco/nicotine status: current every day tobacco/nicotine user cigarettes Packs smoked per day: 1 Years cigarettes smoked: 43 Alcohol intake: never Substance/Drug Use: never Lives independently: Yes Household members: spouse Marital status: Current occupational status: employed 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 Vitals/I&O/Wt Last Vital Signs Temp 98.7 F 10/10/23 19:58 Pulse 83 10/10/23 19:58 Resp 16 10/10/23 20:58 BP 100/66 10/10/23 19:58 Pulse Ox 92 10/10/23 20:58 O2 Del Method Room Air 10/10/23 14:13 O2 Flow Rate 6 10/10/23 10:51 10/10/23 10/10/23 10/11/23 14:59 22:59 06:59 Intake Total 1950 / 1950 970 / 2920 Output Total 525 / 525 525 / 1050 Balance 1425 / 1425 445 / 1870 Weight last 48 hrs Weight 74.389 kg Physical Exam 2 Const: GENERAL APPEARANCE: cooperative and comfortable NUTRITIONAL APPEARANCE: overweight ORIENTATION/CONSCIOUSNESS: Yes awake, Yes oriented to person, Yes oriented to place and Yes oriented to time HENMT: COMMON NORMALS: normocephalic, atraumatic and external ears normal H EAD & SCALP: normocephalic and atraumatic EXTERNAL EAR: Yes external ears normal MOUTH: Normal oral and palatal mucosa present THROAT: posterior oropharynx normal Eye: COMMON NORMALS: Equal, round and reactive pupils present and conjunctivae normal CONJUNCTIVA: Yes conjunctivae normal PUPIL: Yes Equal, round and reactive pupils present EOM: No EOM abnormal Neck/C-Spine: COMMON NORMALS: Thyroid normal GENERAL: Yes normal visual inspection and Yes trachea midline THYROID: Thyroid normal CAROTIDS: No bruit Lymph: LYMPHATIC: No lymphadenopathy Resp: OTHER: CTAB, with no wheezes rales or rhonchi. Cardio: OTHER: Regular rate and rhythm with no murmurs, rubs, gallops or clicks. GI: OTHER: Bowel sounds positive. Nontender, nondistended, no guarding, no rigidity, no rebound tenderness, no hepatosplenomegaly. Extremity: GENERAL: No clubbing, No cyanosis and No edema Neuro: SENSORIUM/ORIENTATION: Yes oriented to person, Yes oriented to place and Yes oriented to time Psych: COMMON NORMALS: Normal thought process present and speech normal A PPEARANCE: Yes grossly normal ATTITUDE: Yes calm and Yes engaged A CTIVITY/MOTOR BEHAVIOR: Yes appropriate eye contact SPEECH: Yes normal speech MOOD & AFFECT: Yes euthymic mood THOUGHT PROCESS: Normal thought process present THOUGHT CONTENT: Yes Normal thought content present A TTENTION/CONCENTRATION: Yes attention grossly intact MEMORY/COGNITION: Yes memory grossly intact Skin: COMMON NORMALS: no rashes or lesions noted GENERAL SKIN EXAM: no rashes or lesions noted Urinary Catheter Management: Marcial: Cath Placed During This Visit: yes Reason for Continuing Indwelling Catheter: Perioperative Use in Selected Surgeries Urinary Catheter Date of Insertion: 10/10/23 Urinary Catheter Time of Insertion: 07:25 Data 10/10/23 06:14 10/10/23 06:14 A&P Assessment and plan (1) S/P total right hip arthroplasty: (2) GERD (gastroesophageal reflux disease): Plan Hayley Chun is a 62 year old female w/ 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 The hospitalist service was consulted for general medical management. 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 total hip arthroplasty - Mgmt per Ortho #Anxiety d/o: Restarted Meds #GERD: Restart PPI #Asthma/COPD: will clarify this diagnosis with the patient DVT ppx: SCDs Coding Level of Care Code 04627 Diagnoses S/P total right hip arthroplasty Z96.641 GERD (gastroesophageal reflux disease) K21.9
[2023-10-11] VITALS: BP 108/68; PULSE 88; RESP 18; TEMP 37.1; O2SAT 95
[2023-10-11] MEDS: lactated ringers 1,000 ML 100 ML IV (03:25)
[2023-10-11 05:01] VITALS: BMI 29.9
[2023-10-11 05:06] LABS: Basophils % 0.2 %; Hematocrit 32.8 % (36-47); Lymphocytes # 1.4 10^3/uL (0.8-4.8); Mean Corpuscular HGB Conc 31.4 g/dL (30-55); Mean Corpuscular Hemoglobin 27.8 pg (27-33); Mean Corpuscular Volume 88.6 fl (85-98); Mean Platelet Volume 11.7 fL (7.4-10.4); Monocytes # 1.2 10^3/uL (0.2-0.9); Monocytes % 8.8 %; Neutrophils # 10.42 10^3/uL (1.8-7.7); Neutrophils % 79.5 %; Nucleated Red Blood Cells % 0 %; Platelet Count 245 10^3/cmm (157-399); Red Cell Distribution Width 13.5 % (12.1-15.1); White Blood Count 13.09 10^3/uL (3.29-11.43)
[2023-10-11 05:40] LABS: Alanine Aminotransferase 35 U/L (0-33); Albumin Level 3.5 g/dL (3.5-5.2); Alkaline Phosphatase 76 U/L (35-105); Aspartate Amino Transferase 51 U/L (0-32); Blood Urea Nitrogen 11 mg/dL (8-23); Calcium 8.5 mg/dL (8.5-10.5); Carbon Dioxide 25 mmol/L (22-29); Chloride 104 mmol/L (98-107); Globulin 1.7 g/dL (1.3-4.6); Glucose 109 mg/dL (65-115); Magnesium 1.9 mg/dL (1.7-2.3); Osmolality Calculated 286 mOsm/kg (285-295); Phosphorus 3.7 mg/dL (2.5-4.5); Sodium 138 mmol/L (136-145); Total Bilirubin 0.5 mg/dL (0.15-1.2); Total Protein 5.2 g/dL (6.6-8.7)
[2023-10-11] MEDS: acetaminophen 1,000 MG/100 ML PIGGYBACK 400 MG IV (06:03)
[2023-10-11] MEDS: ceFAZolin 2,000 MG in sodium chloride 0.9% (plus) 50 ML 100 MG IV (06:03)
[2023-10-11 06:05] VITALS: RESP 18; O2SAT 95
[2023-10-11] MEDS: oxyCODONE 5 mg IR Tab/Cap PO ×2 (06:05→10:48)
[2023-10-11] MEDS: duloxetine 30 mg Capsule PO (08:16)
[2023-10-11] MEDS: apixaban 5 mg Tablet 2.5 MG PO (08:16)
[2023-10-11] MEDS: iron polysaccharide complex 150 mg Capsule PO (08:16)
[2023-10-11] MEDS: calcium carb-vit d 600mg/400unit 1 Tablet 1 EACH PO (08:16)
[2023-10-11] MEDS: sennosides-docusate Tablet 2 TAB PO (08:16)
[2023-10-11] MEDS: multivitamin therapeutic Tablet 1 TAB PO (08:16)
[2023-10-11] MEDS: HYDROmorphone 1 mg/mL INJ 1 mL 0.5 MG IVP (08:16)
[2023-10-11] MEDS: mupirocin oint 22 gm 1 APPLIC NASAL (08:17)
[2023-10-11] MEDS: chlorhexidine gluconate 0.12% Btl 473 mL 30 ML MUCOUS MEM (08:17)
[2023-10-11] MEDS: pantoprazole DR 40 mg Tablet PO (08:17)
[2023-10-11 08:25] VITALS: BP 103/67; PULSE 80; RESP 14; TEMP 36.4; O2SAT 95
--- NOTE | 2023-10-11 10:05 | PC.CHAP ---
Pastoral Care Encounter/Spiritual Assessment Type of Contact [] Declined revenue tax specialist visit [] Patient/Family/Request visit [] Outpatient visit [] Follow-up visit [] Physician referral [] Code/Alert [x] Routine visit [] Staff referral [] Actively dying [] Patient sleeping [] Family support [] [] Out of room [] Palliative care [] [x] Receiving care in room [] Pre-surgical visit [] Trauma [] Long length of stay [] ICU visit [] Other: Relational/Emotional Strength [x] Patient feels connected with others/family/visitors/staff [] Distress [] Loneliness/isolation [] Abandonment Spirituality of Patient [x] Person of Aishwarya [] Attends Moravian of their Aishwarya [x] Believes in Prayer [] Reads Bible or Baptism materials [] There are Spiritual issues to be addressed [employer] Technician Interventions [x] Prayer [x] Active listening [x] Non-anxious presence [x] Spiritual/emotional support [] Crisis/trauma care [x] Spiritual counseling [] Bereavement support [] Provided bereavement packet [] Provided Bible/devotional materials [] Provided toy/stuffed animal, coloring book to patient or family member [] Provided Communion [] Anointing/[place] [] Salvation [x] Completed spiritual assessment [] Other: Impact on Illness or Injury [] Angry [] Fearful [] Anxious [] Often cries [] Exhaustion [] Unable to work [] Unable to attend moravian [] Unable to walk/stand [] Unable to read [] Unable to drive [] Unable to eat/drink [] Unable to sleep [] Unable to be with family [] Patient intubated [] Other: Summary hip surgery rehab at a rehab center then home and fellow up from home has a good attitude Time spent with patient 10 mins
[2023-10-11 10:48] VITALS: RESP 18
[2023-10-11 11:31] VITALS: BP 100/64; PULSE 71; RESP 16; TEMP 36.7; O2SAT 95
--- NOTE | 2023-10-11 11:59 | P.PN_ITS ---
Subjective 2 Subjective: The patient experienced right hip pain today while working with PT this morning. She required pain medicine, and her pain is better controlled at this time. She denies fever, chills, dizziness, lightheadedness, CP, palpitations, nausea, vomiting. She has not had a BM, but tells me that she has chronic constipation, where she she sometimes does not go to the bathroom for 5 to 6 days. She denies any hematuria, dysuria, increased urinary urgency or frequency. When I asked her about her COPD/asthma diagnosis, she did endorse both diagnoses, but tells me that her physician took her off the inhalers, because her symptoms improved. She tells me that she does not take duloxetine for anxiety/depression; however given her history of chronic hip pain, prior to her surgery, her PCP put her on duloxetine for pain control. She also tells me that she has a history of chronic low back pain due to a diagnosis of herniated lumbar disc, osteoarthritis of the L-spine. She also tells me that she has a diagnosis of osteoporosis, and what sounds like L-spine stenosis. She tells me that she plans to address her chronic low back pain by having back surgery in the year, 2023. Vitals/I&O/Wt Last Vital Signs Temp 98.0 F 10/11/23 11:31 Pulse 71 10/11/23 11:31 Resp 16 10/11/23 11:31 BP 100/64 10/11/23 11:31 Pulse Ox 95 10/11/23 11:31 O2 Del Method Room Air 10/11/23 11:31 O2 Flow Rate 6 10/10/23 10:51 10/10/23 10/11/23 10/11/23 22:59 06:59 14:59 Intake Total 970 / 2920 1420 / 4340 360 / 360 Output Total 525 / 1050 500 / 1550 Balance 445 / 1870 920 / 2790 360 / 360 Weight last 48 hrs Weight 74.389 kg Weight 74.389 kg Physical Exam 2 Const: GENERAL APPEARANCE: cooperative and comfortable NUTRITIONAL APPEARANCE: overweight ORIENTATION/CONSCIOUSNESS: Yes awake, Yes oriented to person, Yes oriented to place and Yes oriented to time HENMT: COMMON NORMALS: normocephalic, atraumatic and external ears normal H EAD & SCALP: normocephalic and atraumatic EXTERNAL EAR: Yes external ears normal MOUTH: Normal oral and palatal mucosa present THROAT: posterior oropharynx normal Eye: COMMON NORMALS: Equal, round and reactive pupils present and conjunctivae normal CONJUNCTIVA: Yes conjunctivae normal PUPIL: Yes Equal, round and reactive pupils present EOM: No EOM abnormal Neck/C-Spine: COMMON NORMALS: Thyroid normal GENERAL: Yes normal visual inspection and Yes trachea midline THYROID: Thyroid normal CAROTIDS: No bruit Lymph: LYMPHATIC: No lymphadenopathy Resp: OTHER: Inspiratory squeaks throughout the right lung youssef, but no wheezes rales or rhonchi. Cardio: OTHER: Regular rate and rhythm with no murmurs, rubs, gallops or clicks. GI: OTHER: Bowel sounds positive. Nontender, nondistended, no guarding, no rigidity, no rebound tenderness, no hepatosplenomegaly. Extremity: NARRATIVE EXTREMITY EXAM: R. hip with incision covered with gauze. GENERAL: No clubbing, No cyanosis and No edema Neuro: SENSORIUM/ORIENTATION: Yes oriented to person, Yes oriented to place and Yes oriented to time Psych: COMMON NORMALS: Normal thought process present and speech normal A PPEARANCE: Yes grossly normal ATTITUDE: Yes calm and Yes engaged A CTIVITY/MOTOR BEHAVIOR: Yes appropriate eye contact SPEECH: Yes normal speech MOOD & AFFECT: Yes euthymic mood THOUGHT PROCESS: Normal thought process present THOUGHT CONTENT: Yes Normal thought content present A TTENTION/CONCENTRATION: Yes attention grossly intact MEMORY/COGNITION: Yes memory grossly intact Urinary Catheter Management: Marcial: Cath Placed During This Visit: yes, but has since been removed by the nurse Reason for Continuing Indwelling Catheter: Decision to DC Catheter Urinary Catheter Date of Insertion: 10/10/23 Urinary Catheter Time of Insertion: 07:25 Date Urinary Catheter Removed: 10/11/23 Time Urinary Catheter Discontinued: 06:14 Data 10/11/23 04:18 10/11/23 04:18 A&P Assessment and plan (1) S/P total right hip arthroplasty: (2) GERD (gastroesophageal reflux disease): Plan Hayley Chun is a 62 year old female w/ 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 The hospitalist service was consulted for general medical management. 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 total hip arthroplasty - Mgmt per Ortho -On duloxetine for her chronic pain hip and back pain. #Post-op Acute blood loss anemia: Started on oral iron by Orthopedic surger. - Will order iron studies. #Transaminitis: Probably due to dehydration. - Will give 1L and continue gentle IVF until she discharges. I have informed the patient that the transaminitis should not prevent her discharging, but that she should follow-up with her PCP for follow-up labs. #Chronic Low back pain due to #Hx of L-spine stenosis, #Osteoarthritis of the L- spine, & #Herniated Lumbar disc. - Continue pain medications. - She tells me that she plans to address her chronic low back pain by having back surgery in the year, 2023. #Osteoporosis: Outpatien mgmt. #Anxiety d/o: Restarted Meds #GERD: Restart PPI #Asthma/COPD: #Hx of tobacco use d/o: She quit in 08/2023. #Constipation: Will give Milk of Magnesia and bisacodyl 10mg x 1. DVT ppx: Agree w/ Apixaban for prophylaxis. Attestations 2 Medical Necessity Statement*: Patient remains hospitalized for acute blood loss anemia Coding Level of Care Code 66327 Diagnoses S/P total right hip arthroplasty Z96.641 GERD (gastroesophageal reflux disease) K21.9
--- NOTE | 2023-10-11 12:09 | PM.PN ---
Subjective Subjective: Patient is a 62-year-old female that is 1 day postop right anterior total hip arthroplasty. No acute events overnight. Patient is doing well and got up with physical therapy today. Denies any other complaints. Vitals/I&O/Wt Last Vital Signs Temp 98.0 F 10/11/23 11:31 Pulse 71 10/11/23 11:31 Resp 16 10/11/23 11:31 BP 100/64 10/11/23 11:31 Pulse Ox 95 10/11/23 11:31 O2 Del Method Room Air 10/11/23 11:31 O2 Flow Rate 6 10/10/23 10:51 10/10/23 10/11/23 10/11/23 22:59 06:59 14:59 Intake Total 970 / 2920 1420 / 4340 360 / 360 Output Total 525 / 1050 500 / 1550 Balance 445 / 1870 920 / 2790 360 / 360 Weight last 48 hrs Weight 164 lb Weight 164 lb Physical Exam Const: COMMON NORMALS: no acute distress and alert Resp: COMMON NORMALS: normal respiratory effort and No retractions Cardio: COMMON NORMALS: Peripheral pulses 2+ throughout PERIPHERAL PULSES: Peripheral pulses 2+ throughout Extremity: NARRATIVE EXTREMITY EXAM: Right hip and left hip?dressing is dry and intact and in place. Patient's toes are warm and well-perfused. Pedal pulse 2+. Patient is able to perform straight leg raise, dorsiflex and plantarflex foot. Neuro: SENSORIUM/ORIENTATION: Yes alert Skin: GENERAL SKIN EXAM: dry skin Urinary Catheter Management: Marcial: Cath Placed During This Visit: yes, but has since been removed by the nurse Reason for Continuing Indwelling Catheter: Decision to DC Catheter Urinary Catheter Date of Insertion: 10/10/23 Urinary Catheter Time of Insertion: 07:25 Date Urinary Catheter Removed: 10/11/23 Time Urinary Catheter Discontinued: 06:14 Data 10/11/23 04:18 10/11/23 04:18 A&P Assessment and plan (1) S/P total right hip arthroplasty: Plan Plan: -Imaging and Labs reviewed -Hospitalist on board for medical management. -DVT prophylaxis- eliquis 2.5 mg BID -Weight-bear as tolerated on right leg -Pain control -PT Pt is doing well 1 day postop Right anterior total hip arthroplasty. Pt is cleared for discharge home today. We will see patient in orthopedic clinic in 2 weeks for reevaluation and repeat x-rays. Attestations Medical Necessity Statement*: Ongoing care for right total hip arthroplasty Coding Level of Care Code Acute Code for Nabila Fwstan Diagnoses S/P total right hip arthroplasty Z96.641
[2023-10-11 12:50] LABS: Iron 39 ug/dL (37-145); Percent Saturation 16.6 % (20-50); Total Iron Binding Capacity 234 mcg/dl; Unsaturated Iron Binding 195 ug/dL (112-347)
[2023-10-11 13:06] LABS: Vitamin B12 303 pg/mL (232-1245)
[2023-10-11 13:07] LABS: Folate Level 7.5 ng/mL (4.8-37.3)
--- NOTE | 2023-10-11 13:13 | P.DS_ITS ---
Discharge Providers Date of Admission: 10/10/23 10:44 Date of Discharge: October 11, 2023 Attending Provider at Admission: Ricky Magana DO Attending Provider at Discharge: Ricky Magana DO Consults: Hospitalist consulted Primary Care Provider: Tarah Aquino MD Diagnoses at Discharge Discharge Diagnosis (1) S/P total right hip arthroplasty: Status: Acute Reason for Visit Reason for Visit: M87.059, M25.559, M16.11 Brief History: s/p R MIKI FANY anterior approach Hospital Course Hospital Course Patient was brought to the hospital through the preoperative holding area with plan for right total hip arthroplasty for right hip AVN. Once cleared by anesthesia for surgery subsequently was taken back to the operative suite underwent? anesthesia per the anesthesia department and then underwent right total hip arthroplasty with Fany robotic assistance anterior approach without any complications.? Patient was then subsequently taken back to PACU in stable condition recovering well.? Once recovered, patient was then subsequently admitted to the floor postoperatively.? Internal medicine was consulted for medical management assistance.? Patient weightbearing as tolerated to the right lower extremity, anterior hip precautions.? PT/OT.? Pain control.? DVT prophylaxis.? Postoperative antibiotics and TXA.?? dressing was change as needed.? Internal medicine was on board and appreciate their medical management and assistance.Pt was determined on postoperative day 1 the patient was stable for discharge from orthopedic as well as internal medicine standpoint.? Patient's labs were monitored daily.?Patient will receive appropriate pain medication as well as DVT prophylaxis postoperatively.?? Appropriate discharge instructions as well.? Patient was then discharged in stable condition. Patient will discharge home. Pt will follow-up with Orthopedics in the office in 2 weeks.? Patient understands and agrees with current plan.? All questions answered.? Understands there is any issues or concerns and contact the office. Physical Exam Const: COMMON NORMALS: no acute distress and alert Resp: COMMON NORMALS: normal respiratory effort and No retractions Cardio: COMMON NORMALS: Peripheral pulses 2+ throughout PERIPHERAL PULSES: Peripheral pulses 2+ throughout Extremity: NARRATIVE EXTREMITY EXAM: Right hip and left hip?dressing is dry and intact and in place. Patient's toes are warm and well-perfused. Pedal pulse 2+. Patient is able to perform straight leg raise, dorsiflex and plantarflex foot. Neuro: SENSORIUM/ORIENTATION: Yes alert Skin: GENERAL SKIN EXAM: dry skin Urinary Catheter Management: Marcial: Cath Placed During This Visit: yes, but has since been removed by the nurse Reason for Continuing Indwelling Catheter: Decision to DC Catheter Urinary Catheter Date of Insertion: 10/10/23 Urinary Catheter Time of Insertion: 07:25 Date Urinary Catheter Removed: 10/11/23 Time Urinary Catheter Discontinued: 06:14 Discharge Data Studies Completed and Pending Completed Studies During Hospitalization Category Date Time Status XR hip RT 2-3V wo/w pel* [id number] Routine Exams 10/10/23 10:20 Completed Pending at discharge Category Date Time Status Basic Metabolic Panel AM LABS Lab 10/12/23 04:00 Ordered Basic Metabolic Panel AM LABS Lab 10/13/23 04:00 Ordered Complete Blood Count w/Auto AM LABS Lab 10/12/23 04:00 Ordered Complete Blood Count w/Auto AM LABS Lab 10/13/23 04:00 Ordered Laboratory Results WBC 13.09 10^3/uL (3.29-11.43) H 10/11/23 04:18 RBC 3.70 10^6/uL (3.85-5.65) L 10/11/23 04:18 Hgb 10.30 g/dL (11.27-16.99) L 10/11/23 04:18 Hct 32.8 % (36-47) L 10/11/23 04:18 MCV 88.6 fl (85-98) D 10/11/23 04:18 MCH 27.8 pg (27-33) 10/11/23 04:18 MCHC 31.4 g/dL (30-55) 10/11/23 04:18 RDW 13.5 % (12.1-15.1) 10/11/23 04:18 Plt Count 245 10^3/cmm (157-399) 10/11/23 04:18 MPV 11.7 fL (7.4-10.4) H 10/11/23 04:18 Neut % (Auto) 79.5 % 10/11/23 04:18 Lymph % (Auto) 11.0 % 10/11/23 04:18 [place] % (Auto) 8.8 % 10/11/23 04:18 Eos % (Auto) 0.0 % 10/11/23 04:18 Baso % (Auto) 0.2 % 10/11/23 04:18 Neut # (Auto) 10.42 10^3/uL (1.8-7.7) H 10/11/23 04:18 Lymph # (Auto) 1.4 10^3/uL (0.8-4.8) 10/11/23 04:18 [place] # (Auto) 1.2 10^3/uL (0.2-0.9) H 10/11/23 04:18 Eos # (Auto) 0.0 10^3/uL (0.0-0.8) 10/11/23 04:18 Baso # (Auto) 0.0 10^3/uL (0.0-0.1) 10/11/23 04:18 Nucleated RBC % (auto) 0 % 10/11/23 04:18 Nucleated RBCs # 0.0 /100WBC 10/11/23 04:18 Sodium 138 mmol/L (136-145) 10/11/23 04:18 Potassium 5.0 mmol/L (3.5-5.1) 10/11/23 04:18 Chloride 104 mmol/L (98-107) 10/11/23 04:18 Carbon Dioxide 25 mmol/L (22-29) 10/11/23 04:18 Anion Gap 14.0 (5-19) 10/11/23 04:18 BUN 11 mg/dL (8-23) 10/11/23 04:18 Creatinine 0.9 mg/dL (0.5-0.9) 10/11/23 04:18 GFR Calculation 63.0 mL/min (90-130) L 10/11/23 04:18 Glucose 109 mg/dL (65-115) 10/11/23 04:18 Calculated Osmolality 286 mOsm/kg (285-295) 10/11/23 04:18 Calcium 8.5 mg/dL (8.5-10.5) 10/11/23 04:18 Phosphorus 3.7 mg/dL (2.5-4.5) 10/11/23 04:18 Magnesium 1.9 mg/dL (1.7-2.3) 10/11/23 04:18 Iron 39 ug/dL (37-145) 10/11/23 04:18 TIBC 234 mcg/dl 10/11/23 04:18 % Saturation 16.6 % (20-50) L 10/11/23 04:18 Unsat Iron Binding 195 ug/dL (112-347) 10/11/23 04:18 Total Bilirubin 0.5 mg/dL (0.15-1.2) 10/11/23 04:18 AST 51 U/L (0-32) H 10/11/23 04:18 ALT 35 U/L (0-33) H 10/11/23 04:18 Alkaline Phosphatase 76 U/L (35-105) 10/11/23 04:18 Total Protein 5.2 g/dL (6.6-8.7) L 10/11/23 04:18 Albumin 3.5 g/dL (3.5-5.2) 10/11/23 04:18 Globulin 1.7 g/dL (1.3-4.6) 10/11/23 04:18 Vitamin B12 303 pg/mL (232-1245) 10/11/23 04:18 Folate 7.5 ng/mL (4.8-37.3) 10/11/23 04:18 Blood Type O Positive 10/10/23 06:14 Rho(D) Type Rh positive 10/10/23 06:14 Antibody Screen Negative 10/10/23 06:14 Imaging Xray Ortho: Radiologist's impression: IMPRESSION 1. RIGHT total hip arthroplasty in satisfactory position. Procedures Performed R MIKI fany robotic assisted anterior approach Vitals Last Vital Signs Temp 98.0 F 10/11/23 11:31 Pulse 71 10/11/23 11:31 Resp 16 10/11/23 11:31 BP 100/64 10/11/23 11:31 Pulse Ox 95 10/11/23 11:31 O2 Del Method Room Air 10/11/23 11:31 O2 Flow Rate 6 10/10/23 10:51 Discharge Plan Discharge Patient Disposition: Home Condition: Stable Prescriptions: New Eliquis 2.5 mg tablet 2.5 mg PO BID 35 Days Qty: 70 0RF ondansetron 4 mg tablet,disintegrating 4 mg PO Q8H PRN (Reason: nausea and vomiting) 3 Days Qty: 9 0RF Percocet 5-325 mg tablet 1 tab PO Q6H PRN (Reason: pain) 7 Days Qty: 28 0RF Continued oxycodone 10 mg tablet 10 mg PO BID PRN (Reason: Pain) duloxetine 30 mg capsule,delayed release(DR/EC) 30 mg PO DAILY meloxicam 15 mg tablet 15 mg PO DAILY Qty: 90 1RF omeprazole 20 mg capsule,delayed release(DR/EC) See Rx Instructions .ROUTE .COMPLEX Qty: 90 0RF Dose Instruction: Take 1 capsule by mouth once daily for 90 days Rx Instructions: Take 1 capsule by mouth once daily for 90 days alprazolam 0.25 mg tablet 0.25 mg PO DAILY PRN (Reason: anxiety) Qty: 20 0RF Vitamin D3 100 mcg (4,000 unit) Capsule 100 mcg PO DAILY Discharge Orders: Discharge Order (Routine); Ordered 10/11/23 Ordered By: Ricky Magana Other Ambulatory Orders: DME: Walker (Order) Location: None Selected Ordered By: Ricky Magana Physical Therapy Eval and Treat Outpatient (Order) Timeframe: 3 Days Facility: [facility] - Location: Physical Therapy Ordered By: Ricky Magana Referrals: Tarah Aquino MD [Primary Care Provider] - (We have notified your physician's clinic of the need for a follow-up appointment to be scheduled. If you have not heard from them within the next 2 business days, please call them directly. ) Ricky Magana DO [Physician] - 10/25/23 11:00 am () Discharge Diet: Advance as tolerated Discharge Activity: Limit activity as instructed, Use walker/crutches as instructed and As per PT/OT instructions Patient Instructions: Oxycodone/Acetaminophen (By mouth), Ondansetron (By mouth) ([place] Zuplenz), Apixaban (By mouth), Precautions after Total Joint Replacement Surgery (GEN), Total Hip Replacement (GEN), Joint Replacement Stoplight, Opioid Safety Activity Restrictions/Additional Instructions: Orthopedic discharge instructions: Patient should keep dressings clean dry and intact Okay to shower over dressings if they do become wet these should be removed and new dressings applied Keep incisions clean dry and intact, leave Silverlon (Left Hip) bandage dressings on in place for 7 days after that may rinse incisions with warm soapy water pat dry and redress with a dry dressing. Right Hip-leave Evelina dressing on and you will need to unplug battery if you are going to shower. Leave evelina dressing on for 7 days and then the battery will then you can remove. Weight-bear as tolerated to operative lower extremity Anterior hip precautions as instructed by physical therapy Ice as needed for pain and swelling Take pain medication as prescribed Take antinausea medication as needed Supplement with Citracal vitamin D for bone health and healing Take Colace as needed for constipation Take blood thinner as prescribed (Eliquis) Follow-up in the orthopedic office in 2 weeks Contact the office for any questions or concerns Discharge Attestations Time Spent in Discharge Care*: less than 30 min Quality Metrics Clinical Quality Measures [ No reported AMI, CVA or VTE this stay] Coding Level of Care Code Acute Code for Chg Fwd Diagnoses S/P total right hip arthroplasty Z96.641 Time Spent (min) 30
[2023-10-11] MEDS: magnesium hydroxide 30 mL UDC PO (13:36)
[2023-10-11] MEDS: bisacodyl 5 mg Tablet 10 MG PO (13:36)
[2023-10-11] MEDS: sodium chloride 0.9% 1,000 ML 300 ML IV (13:36)
--- NOTE | 2023-10-11 16:19 | PC.NURSE ---
MD madsen'd pt to receive pain medications as ordered through pharmacy for pain control.
[2023-10-11 16:20] VITALS: BP 100/64; PULSE 71; RESP 16; TEMP 36.7; O2SAT 95
== END 2023-10-11 16:22 | disposition home or self-care (01) ==
LOC: MEDSURG 10:44
PROVIDERS: Internal Medicine; Physician Assistant; Admitting Provider Student in an Organized Health Care Education/Training Program; PCP Family Medicine; Visit Provider Student in an Organized Health Care Education/Training Program
PROC: 8E0Y0CZ Robotic Assisted Procedure of Lower Extremity, Open Approach (ICD-10-PCS; CPT 27130; principal; 2023-10-10 07:00)
DX: M87.850 Other osteonecrosis, pelvis (principal); J44.9 Chronic obstructive pulmonary disease, unspecified; K21.9 Gastro-esophageal reflux disease without esophagitis; F41.9 Anxiety disorder, unspecified; Z87.891 Personal history of nicotine dependence; G89.29 Other chronic pain; M54.9 Dorsalgia, unspecified; D62 Acute posthemorrhagic anemia; R74.01 Elevation of levels of liver transaminase levels; M81.0 Age-related osteoporosis without current pathological fracture; K59.00 Constipation, unspecified; I10 Essential (primary) hypertension
CPT/HCPCS: 20985; 27130; 36415; 51702; 73502; 76000; 80048; 80053; 82607; 82746; 83540; 83550; 83735; 84100; 85025; 86850; 86900; 97110; 97116; 97161; 97165; 97535; C1713; C1776; G0378; J0131; J0690; J1100; J1170; J1885; J2371; J2405; J2704; J3010; J3370; J3490; J7030; J7120

== ENCOUNTER → 2023-10-25 10:36 | Outpatient (BNVA) | payer OTHER, SELFPAY | PROVIDERS: PCP Family Medicine; Visit Provider Physician Assistant | DX: Z96.641 Presence of right artificial hip joint (principal) | CPT/HCPCS: 73502 ==

== ENCOUNTER 2023-10-25 11:37 | Emergency (ER) | payer OTHER, SELFPAY ==
[2023-10-25 11:50] VITALS: BP 133/77; PULSE 74; TEMP 36.6; O2SAT 95; BMI 29.9
--- NOTE | 2023-10-25 12:00 | USR_ITS ---
PROCEDURE INFORMATION: Exam: US Duplex Right Lower Extremity Veins, Limited Exam date and time: 10/25/2023 12:25 PM Age: 62 years old Clinical indication: Pain; Leg, lower; Right; Prior surgery; Surgery date: <1 month; Surgery type: Hip SX 2 weeks ago; Additional info: Leg pain TECHNIQUE: Imaging protocol: Real-time duplex ultrasound of the right extremity with 2-D sood scale, color Doppler flow and spectral waveform analysis including responses to compression and other maneuvers (when performed) with image documentation. Limited exam was focused on the right lower extremity veins. [id number](s) are provided. COMPARISON: 1. No previous ultrasound is currently available. Hip radiographs same day. 2. CR XR hip RT 2-3V wo/w pel* [id number] 10/10/2023 11:45 AM FINDINGS: Right deep veins: The common femoral, femoral, proximal profunda femoral and popliteal, peroneal and posterior tibial veins appear patent without thrombus. Normal Doppler waveforms. Normal compressibility and/or augmentation response. Superficial veins: Saphenofemoral junction appears patent. Soft tissues: No fluid collections are appreciated. There is some minimal subcutaneous edema demonstrated. US/[place] [id number] IMPRESSION: No evidence of deep vein thrombosis.
--- NOTE | 2023-10-25 12:51 | ED_ITS ---
HPI - Extremity Problem General: Chief complaint: Extremity Problem,Nontraumatic Stated complaint: sent from dr rivero blood clot Time Seen by Provider: 10/25/23 12:11 Source: patient Mode of arrival: ambulatory Limitations: no limitations History of Present Illness: 62-year-old female that had hip replacem ent over 2 weeks ago she seen orthopedist today she had some right lower extremity swelling and sent over here for rule out DVT she had slight pain denies any fever no redness denies any hip pain. Associated symptoms: Deny chest pain, fever(s) or rash Review of Systems Const: Denies: fever(s), chills, body aches or change in appetite ENMT: Denies: throat pain or dental pain Card: Denies: chest pain Resp: Denies: dyspnea GI: Denies: abdominal pain, nausea, vomiting or diarrhea Musc: Reports: extremity pain and extremity swelling; Denies: neck pain or back pain Skin/Breast: Denies: rash Neuro: Denies: headache(s) PFSH ED PFSH: Medical History Hypertension Tubular adenoma of colon Tobacco use High risk for hip fracture Osteopenia GERD (gastroesophageal reflux disease) Skin rash Degenerative joint disease (DJD) of lumbar spine Osteoarthritis, generalized Migraines COPD (chronic obstructive pulmonary disease) Asthma Joint pain Surgical History Hx of eye surgery History of hysterectomy with bilateral oophorectomy History of appendectomy History of cholecystectomy Family History Mother Diabetes Cancer Dementia Father Diabetes Cancer Brother Diabetes Denies family history of CAD (coronary artery disease) Clotting disorder Hyperlipidemia Psychiatric illness Chronic kidney disease (CKD) Suicide Anesthesia complication Bleeding disorder Family history of premature coronary artery disease Lung disease Hypertension Stroke Social History Smoking and tobacco/nicotine status: current every day tobacco/nicotine user cigarettes Packs smoked per day: 1 Years cigarettes smoked: 43 Alcohol intake: never Substance/Drug Use: never Lives independently: Yes Household members: spouse Marital status: Current occupational status: employed 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 Physical Exam Const: COMMON NORMALS: no acute distress, patient oriented x3 and healthy appearing HENMT: COMMON NORMALS: normocephalic and atraumatic HEAD & SCALP: normocephalic and atraumatic Neck/C-Spine: COMMON NORMALS: full ROM and supple Chest: COMMONS NORMALS: normal inspection of the chest Resp: COMMON NORMALS: normal respiratory effort Cardio: COMMON NORMALS: regular rate, regular rhythm and No murmurs present (Cardio) RATE: regular rate RHYTHM: regular rhythm Extremity: NARRATIVE EXTREMITY EXAM: Swelling noted to right lower extremity distal pulses intact no erythema or redness Neuro: COMMON NORMALS: patient oriented x3, moves all extremities and no focal motor deficits Psych: COMMON NORMALS: mental status grossly normal, Normal thought process present and cooperative THOUGHT PROCESS: Normal thought process present Skin: COMMON NORMALS: no rashes or lesions noted and no wounds GENERAL SKIN EXAM: no rashes or lesions noted Course Vital Signs: Vital signs: Vital Signs Temperature 97.9 F 10/25/23 11:50 Pulse Rate 74 10/25/23 11:50 Blood Pressure 133/77 10/25/23 11:50 Pulse Oximetry 95 10/25/23 11:50 Oxygen Delivery Me thod Room Air 10/25/23 11:50 MDM - Extremity (Nontraumatic) Medical Decision Making Patient presents here right leg swelling ultrasound was negative. She is stable for discharge she is to follow-up with orthopedist and return if worsening. All radiology interpretation(s) finalized by discharge Discharge Plan Discharge Patient Disposition: Home Clinical Impression: Right leg swelling Condition: Stable Prescriptions: No Action oxycodone 10 mg tablet 10 mg PO BID PRN (Reason: Pain) duloxetine 30 mg capsule,delayed release(DR/EC) 30 mg PO DAILY meloxicam 15 mg tablet 15 mg PO DAILY Qty: 90 1RF omeprazole 20 mg capsule,delayed release(DR/EC) See Rx Instructions .ROUTE .COMPLEX Qty: 90 0RF Dose Instruction: Take 1 capsule by mouth once daily for 90 days Rx Instructions: Take 1 capsule by mouth once daily for 90 days alprazolam 0.25 mg tablet 0.25 mg PO DAILY PRN (Reason: anxiety) Qty: 20 0RF albuterol sulfate 90 mcg/actuation HFA aerosol inhaler See Rx Instructions .ROUTE .COMPLEX Qty: 9 0RF Dose Instruction: INHALE 2 PUFFS BY MOUTH 4 TIMES DAILY NEEDED FOR SHORTNESS OF BREATH Rx Instructions: INHALE 2 PUFFS BY MOUTH 4 TIMES DAILY NEEDED FOR SHORTNESS OF BREATH Vitamin D3 100 mcg (4,000 unit) Capsule 100 mcg PO DAILY Eliquis 2.5 mg tablet 2.5 mg PO BID 35 Days Qty: 70 0RF Discharge Orders: Discharge ED (Routine); Ordered 10/25/23 Ordered By: Aline Pantoja Referrals: Tarah Aquino MD [Primary Care Provider] - Discharge Diet: Advance as tolerated Discharge Activity: Resume usual activity Patient Instructions: Threatened Miscarriage (ED) Coding Level of Care Code ED Edge Trimmer for Nabila Westbrook
== END 2023-10-25 14:03 | disposition home or self-care (01) ==
PROVIDERS: Emergency Provider Emergency Medicine; PCP Family Medicine
DX: M79.89 Other specified soft tissue disorders (principal); F17.210 Nicotine dependence, cigarettes, uncomplicated; Z79.01 Long term (current) use of anticoagulants; I10 Essential (primary) hypertension; J44.9 Chronic obstructive pulmonary disease, unspecified
CPT/HCPCS: 93971; 99284

== ENCOUNTER → 2023-11-02 11:06 | Outpatient (BNVA) | payer SELFPAY | PROVIDERS: PCP Family Medicine; Visit Provider Family Medicine | DX: R10.9 Unspecified abdominal pain (principal) | CPT/HCPCS: 81000 ==

== ENCOUNTER → 2023-12-11 09:39 | Outpatient (BNVA) | payer MEDICARE, OTHER, SELFPAY | PROVIDERS: PCP Family Medicine; Visit Provider Student in an Organized Health Care Education/Training Program | DX: Z96.641 Presence of right artificial hip joint (principal) | CPT/HCPCS: 73502 ==

== ENCOUNTER 2023-12-31 13:32 | Outpatient (CLI) | payer MEDICARE, OTHER, SELFPAY ==
--- NOTE | 2023-12-31 14:00 | CT_ITS ---
WS: [id number] CT ABDOMEN WITH CONTRAST HISTORY: worsening acute epigastric pain w/ significant tenderness Contiguous single phase 5 mm axial imaging performed to the abdomen. Oral contrast has been provided. Coronal and sagittal reformats are submitted. All CT scans at [facility] use at least one of these dose optimization techniques: automated exposure control; mA and/or kV adjustment per patient size (includes targeted exams where dose is matched to clinical indication); or iterative reconstruct ion. IV CONTRAST: Omnipaque 350; 100 mL IV. Oral contrast: No DLP: 191.71 mGy.cm COMPARISON: None available. Lower thorax: Stable 4 mm nodule LEFT lower lobe since 08/26/2022. Heart is normal size. Small hiatal hernia. Liver/biliary system: Normal size liver. Focal fatty sparing along the falciform ligament. No bile du ct dilatation. Normal portal vein. Gallbladder: Prior cholecystectomy. Pancreas: Mild fatty replacement and pancreatic atrophy. There is a focal area of mild inflammation i nvolving the head and uncinate process of the pancreas and the duodenal C-loop. No mass identified. N o bile duct dilatation. Spleen: Normal size spleen. No mass or infarct. Adrenal glands: Normal. Right kidney: Normal kidney. Cortical hypodensities. No solid mass or obstruction. Left kidney: Normal. Aorta: Normal. Lymphadenopathy: None. Free fluid: None. GI tract: Normally distended stomach. The duodenal C-loop adjacent to the pancreatic head there is mi ld hyperemia and inflammation. I suspect there is probably a small ulceration along the medial curvat ure of the duodenum versus a diverticulum. The inflammation is also at the site of the pancreatic hea d/uncinate process edema. Abdominal wall: Unremarkable abdominal wall. No hernia. Visualized osseous structures: Unremarkable. IMPRESSION: 1. Mild acute inflammation in the RIGHT upper abdomen involving the duodenal C-loop and the pancreat ic head/uncinate process. There is no fluid collection or mass identified. This is either mild acute pancreatitis versus an acute duodenal ulcer. 2. No free air or free fluid. 3. Stable LEFT lower lobe 4 mm nodule. 4. Prior cholecystectomy. 5. No common bile duct dilatation although there is mild inflammation surrounding the distal common bile duct.
[2023-12-31 14:11] LABS: Blood Urea Nitrogen 8 mg/dL (8-23)
[2023-12-31] MEDS: iohexol 350 mg/mL 500 mL Btl (per mL) IV (14:14)
== END 2023-12-31 13:33 | disposition home or self-care (01) ==
LOC: RAD 13:32
PROVIDERS: PCP Family Medicine; Visit Provider Family Medicine
DX: R10.9 Unspecified abdominal pain (principal)
CPT/HCPCS: 74160; 82565; 84520; Q9967

== ENCOUNTER 2024-01-01 07:08 | Outpatient (CLI) | payer MEDICARE, OTHER, SELFPAY ==
[2024-01-01 07:35] LABS: Basophils % 0.6 %; Eosinophils # 0.1 10^3/uL (0.0-0.8); Eosinophils % 1.9 %; Hematocrit 43.3 % (36-47); Lymphocytes # 1.8 10^3/uL (0.8-4.8); Lymphocytes % 26.3 %; Mean Corpuscular HGB Conc 30.9 g/dL (30-55); Mean Corpuscular Hemoglobin 24.5 pg (27-33); Mean Corpuscular Volume 79.3 fl (85-98); Mean Platelet Volume 11.1 fL (7.4-10.4); Monocytes # 0.5 10^3/uL (0.2-0.9); Monocytes % 7.9 %; Neutrophils # 4.25 10^3/uL (1.8-7.7); Neutrophils % 63.2 %; Nucleated Red Blood Cells % 0 %; Platelet Count 337 10^3/cmm (157-399); Red Blood Count 5.46 10^6/uL (3.85-5.65); Red Cell Distribution Width 14.1 % (12.1-15.1); White Blood Count 6.73 10^3/uL (3.29-11.43)
[2024-01-01 08:16] LABS: Alanine Aminotransferase 8 U/L (0-33); Albumin Level 4.2 g/dL (3.5-5.2); Alkaline Phosphatase 96 U/L (35-105); Aspartate Amino Transferase 16 U/L (0-32); Blood Urea Nitrogen 10 mg/dL (8-23); Calcium 9.4 mg/dL (8.5-10.5); Carbon Dioxide 25 mmol/L (22-29); Chloride 104 mmol/L (98-107); Ferritin 23 ng/mL (15-150); Globulin 2.9 g/dL (1.3-4.6); Glucose 103 mg/dL (65-115); Iron 29 ug/dL (37-145); Lipase 22 U/L (13-60); Magnesium 2.2 mg/dL (1.7-2.3); Osmolality Calculated 285 mOsm/kg (285-295); Sodium 138 mmol/L (136-145); Thyroid Stimulating Hormone 0.53 uIU/mL (0.27-4.20); Total Bilirubin 0.7 mg/dL (0.15-1.2); Total Protein 7.1 g/dL (6.6-8.7); Vitamin B12 288 pg/mL (232-1245)
[2024-01-01 08:19] LABS: Anion Gap 13.1 (5-19); Potassium 4.1 mmol/L (3.5-5.1)
== END 2024-01-01 07:09 | disposition home or self-care (01) ==
LOC: LAB 07:09
PROVIDERS: PCP Family Medicine; Visit Provider Family Medicine
DX: R10.9 Unspecified abdominal pain (principal); D64.9 Anemia, unspecified; G25.81 Restless legs syndrome
CPT/HCPCS: 36415; 80053; 82607; 82728; 83540; 83690; 83735; 84443; 85025

== ENCOUNTER 2024-02-16 00:30 | Emergency (ER) | payer MEDICARE, OTHER, SELFPAY ==
[2024-02-16 00:37] VITALS: BP 128/73; PULSE 81; RESP 25; TEMP 36.7; O2SAT 92; BMI 29.0
--- NOTE | 2024-02-16 01:08 | XRR_ITS ---
PROCEDURE INFORMATION: Exam: XR Chest Exam date and time: 02/16/2024 1:13 AM Age: 63 years old Clinical indication: Dyspnea; Patient HX: C/O SOB. History of asthma. TECHNIQUE: Imaging protocol: Radiologic exam of the chest. Views: 1 view. COMPARISON: CT angio chest PE protcl [id number] 08/26/2022 12:22 AM FINDINGS: Lungs: Unremarkable. No consolidation. Pleural spaces: Unremarkable. No pleural effusion. No pneumothorax. Heart/Mediastinum: Unremarkable. No cardiomegaly. Bones/joints: Unremarkable. XR/XR chest 1V portable [id number] IMPRESSION: No acute findings.
--- NOTE | 2024-02-16 01:12 | W.ED.SOB ---
HPI - SOB/Dyspnea General: Chief Complaint: Shortness of Breath/Dyspnea Stated Complaint: asthma attack rescue inhaler not work Time Seen by Provider: 02/16/24 00:55 History of Present Illness: HPI Narrative: 63-year-old female presents emerged part with complaints of increased shortness of breath. She states she has longstanding history of COPD. She states she was awakened suddenly from sleeping feeling like she was having difficulty breathing and having significant episodes of expiratory wheezing. Patient states she has been unable to obtain and use her COPD inhaler Symbicort as the cost of the Symbicort is $3-$400. She states she does have history of COPD and asthma. She denies chest pain dizziness lightheaded feeling nausea or vomiting. She does endorse nonproductive cough. Review of Systems General: Reports: 10 or more systems reviewed and unremarkable except in HPI and below Resp: Reports: dyspnea, non-productive cough and wheezing [facility] PFSH: Medical History Hypertension Tubular adenoma of colon Tobacco use High risk for hip fracture Osteopenia GERD (gastroesophageal reflux disease) Skin rash Degenerative joint disease (DJD) of lumbar spine Osteoarthritis, generalized Migraines COPD (chronic obstructive pulmonary disease) Asthma Joint pain Surgical History Hx of eye surgery History of hysterectomy with bilateral oophorectomy History of appendectomy History of cholecystectomy Family History Mother Diabetes Cancer Dementia Father Diabetes Cancer Brother Diabetes Denies family history of CAD (coronary artery disease) Clotting disorder Hyperlipidemia Psychiatric illness Chronic kidney disease (CKD) Suicide Anesthesia complication Bleeding disorder Family history of premature coronary artery disease Lung disease Hypertension Stroke Social History Smoking and tobacco/nicotine status: current every day tobacco/nicotine user cigarettes Packs smoked per day: 1 Years cigarettes smoked: 43 Alcohol intake: never Substance/Drug Use: never Lives independently: Yes Household members: spouse Marital status: Current occupational status: employed 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 Skin: Warm, dry, Intact. Head: Normocephalic, atraumatic. Neck: Supple, trachea midline. Eye: Extraocular movements are intact. PERRLA Ears, nose, mouth and throat: mucosa moist. Cardiovascular: Regular, Normal peripheral perfusion. Respiratory: Mild increased work of breathing. Scattered expiratory wheezes bilaterally., breath sounds are equal, Symmetrical chest wall expansion. Gastrointestinal: Soft, Nontender, Non distended, Normal bowel sounds. Musculoskeletal: Normal ROM, no deformity. Neurological: Alert and oriented, No focal neurological deficit observed. Psychiatric: Cooperative, appropriate mood & affect. Course Vital Signs: Vital signs: Vital Signs Temperature 98.1 F 02/16/24 00:37 Pulse Rate 69 02/16/24 01:37 Respiratory Rate 17 02/16/24 01:37 Blood Pressure 127/76 02/16/24 01:37 Pulse Oximetry 92 02/16/24 01:37 Oxygen Delivery Me thod Nasal Cannula 02/16/24 01:37 Oxygen Flow Rate 2 02/16/24 01:37 MDM - SOB/Dyspnea Medical Decision Making Physical exam completed and documented, I will obtain a CBC, CMP, blood cultures, procalcitonin and lactic acid, single-view chest x-ray and a urinalysis. Differential diagnosis includes community-acquired pneumonia, viral illness, acute exacerbation of chronic pulmonary disease. Medical Records I reviewed the patient's medical records. Lab Data I reviewed the patient's lab results. 02/16/24 01:15 02/16/24 01:15 Labs/Radiology: Radiology Impressions Chest X-Ray 02/16/24 01:08 IMPRESSION: No acute findings. Laboratory Results WBC 6.24 10^3/uL (3.29-11.43) 02/16/24 01:15 RBC 5.61 10^6/uL (3.85-5.65) 02/16/24 01:15 Hgb 13.60 g/dL (11.27-16.99) 02/16/24 01:15 Hct 43.6 % (36-47) 02/16/24 01:15 MCV 77.7 fl (85-98) L 02/16/24 01:15 MCH 24.2 pg (27-33) L 02/16/24 01:15 MCHC 31.2 g/dL (30-55) 02/16/24 01:15 RDW 15.4 % (12.1-15.1) H 02/16/24 01:15 Plt Count 281 10^3/cmm (157-399) 02/16/24 01:15 MPV 10.9 fL (7.4-10.4) H 02/16/24 01:15 Neut % (Auto) 53.7 % 02/16/24 01:15 Lymph % (Auto) 31.4 % 02/16/24 01:15 [place] % (Auto) 7.9 % 02/16/24 01:15 Eos % (Auto) 5.8 % 02/16/24 01:15 Baso % (Auto) 1.0 % 02/16/24 01:15 Neut # (Auto) 3.36 10^3/uL (1.8-7.7) 02/16/24 01:15 Lymph # (Auto) 2.0 10^3/uL (0.8-4.8) 02/16/24 01:15 [place] # (Auto) 0.5 10^3/uL (0.2-0.9) 02/16/24 01:15 Eos # (Auto) 0.4 10^3/uL (0.0-0.8) 02/16/24 01:15 Baso # (Auto) 0.1 10^3/uL (0.0-0.1) 02/16/24 01:15 Nucleated RBC % (auto) 0 % 02/16/24 01:15 Nucleated RBCs # 0.0 /100WBC 02/16/24 01:15 Sodium 140 mmol/L (136-145) 02/16/24 01:15 Potassium 4.0 mmol/L (3.5-5.1) 02/16/24 01:15 Chloride 102 mmol/L (98-107) 02/16/24 01:15 Carbon Dioxide 27 mmol/L (22-29) 02/16/24 01:15 Anion Gap 15.0 (5-19) 02/16/24 01:15 BUN 8 mg/dL (8-23) 02/16/24 01:15 Creatinine 0.7 mg/dL (0.5-0.9) 02/16/24 01:15 GFR Calculation 84.0 mL/min (90-130) L 02/16/24 01:15 Glucose 112 mg/dL (65-115) 02/16/24 01:15 Calculated Osmolality 289 mOsm/kg (285-295) 02/16/24 01:15 Calcium 9.7 mg/dL (8.5-10.5) 02/16/24 01:15 Total Bilirubin 0.4 mg/dL (0.15-1.2) 02/16/24 01:15 AST 19 U/L (0-32) 02/16/24 01:15 ALT 10 U/L (0-33) 02/16/24 01:15 Alkaline Phosphatase 111 U/L (35-105) H 02/16/24 01:15 NT-Pro-B Natriuret Pep 130 pg/mL (0-125) H 02/16/24 01:15 Total Protein 7.1 g/dL (6.6-8.7) 02/16/24 01:15 Albumin 4.0 g/dL (3.5-5.2) 02/16/24 01:15 Globulin 3.1 g/dL (1.3-4.6) 02/16/24 01:15 All radiology interpretation(s) finalized by discharge Discharge Plan Discharge Patient Disposition: Home Clinical Impression: Acute exacerbation of chronic obstructive pulmonary disease Condition: Stable Prescriptions: New budesonide-formoterol [Symbicort] 160-4.5 mcg/actuation HFA aerosol inhaler 2 inh inhalation BID Qty: 10.2 0RF prednisone 20 mg tablet 40 mg PO DAILY 5 Days Qty: 10 0RF No Action oxycodone 10 mg tablet 10 mg PO BID PRN (Reason: Pain) albuterol sulfate 90 mcg/actuation HFA aerosol inhaler See Rx Instructions .ROUTE .COMPLEX Qty: 9 5RF Dose Instruction: INHALE 2 PUFFS BY MOUTH 4 TIMES DAILY NEEDED FOR SHORTNESS OF BREATH Rx Instructions: INHALE 2 PUFFS BY MOUTH 4 TIMES DAILY NEEDED FOR SHORTNESS OF BREATH sucralfate [Carafate] 1 gram tablet 1 g PO QID Qty: 120 0RF Rx Instructions: take on empty stomach clobetasol 0.05 % cream 1 applic topical DAILY PRN (Reason: skin irritation) Qty: 30 0RF ropinirole 0.25 mg tablet 0.25 mg PO DAILY Qty: 30 0RF pantoprazole 40 mg tablet,delayed release (DR/EC) 40 mg PO DAILY Qty: 90 0RF duloxetine 30 mg capsule,delayed release(DR/EC) See Rx Instructions .ROUTE .COMPLEX Qty: 90 0RF Dose Instruction: TAKE 1 CAPSULE BY MOUTH EVERY DAY Rx Instructions: TAKE 1 CAPSULE BY MOUTH EVERY DAY Vitamin D3 100 mcg (4,000 unit) Capsule 100 mcg PO DAILY Discharge Orders: Discharge ED (Routine); Ordered 02/16/24 Ordered By: Brad Thakur Referrals: Tarah Aquino MD [Primary Care Provider] - Discharge Diet: Usual diet Discharge Activity: Resume usual activity Patient Instructions: Opioid Safety, Pain Management Activity Restrictions/Additional Instructions: Activity Restrictions/Additional Instructions: Thank you for choosing [facility] for your healthcare needs today. Please realize that you were seen in the Emergency Department and that we are providing you with an emergency medical screening exam and this may not be a complete and all inclusive of all the testing and or medical work-up that you may need to determine your ailment or severity of your illness. It is very important that you follow-up as instructed with your Primary care provider or Specialist for additional evaluation and to discuss your medical treatment plan. 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
[2024-02-16 01:19] VITALS: PULSE 73; RESP 18; O2SAT 93
[2024-02-16] MEDS: ipratropium-albuterol 3 mL Neb INHALATION (01:19)
[2024-02-16 01:25] LABS: Basophils # 0.1 10^3/uL (0.0-0.1); Eosinophils # 0.4 10^3/uL (0.0-0.8); Eosinophils % 5.8 %; Hematocrit 43.6 % (36-47); Lymphocytes % 31.4 %; Mean Corpuscular HGB Conc 31.2 g/dL (30-55); Mean Corpuscular Hemoglobin 24.2 pg (27-33); Mean Corpuscular Volume 77.7 fl (85-98); Mean Platelet Volume 10.9 fL (7.4-10.4); Monocytes # 0.5 10^3/uL (0.2-0.9); Monocytes % 7.9 %; Neutrophils # 3.36 10^3/uL (1.8-7.7); Neutrophils % 53.7 %; Nucleated Red Blood Cells % 0 %; Platelet Count 281 10^3/cmm (157-399); Red Blood Count 5.61 10^6/uL (3.85-5.65); Red Cell Distribution Width 15.4 % (12.1-15.1); White Blood Count 6.24 10^3/uL (3.29-11.43)
[2024-02-16 01:27] VITALS: PULSE 69
[2024-02-16] MEDS: methylPREDNISolone sod succ 125 mg/2 mL INJ 60 MG IV (01:28)
[2024-02-16 01:37] VITALS: BP 127/76; PULSE 69; RESP 17; O2SAT 92
[2024-02-16 01:52] LABS: Alanine Aminotransferase 10 U/L (0-33); Alkaline Phosphatase 111 U/L (35-105); Aspartate Amino Transferase 19 U/L (0-32); Blood Urea Nitrogen 8 mg/dL (8-23); Calcium 9.7 mg/dL (8.5-10.5); Carbon Dioxide 27 mmol/L (22-29); Chloride 102 mmol/L (98-107); Creatinine Clr Calc Pharmacy 60.1353; Globulin 3.1 g/dL (1.3-4.6); Glucose 112 mg/dL (65-115); NT Pro B Type Natriuretic Pept 130 pg/mL (0-125); Osmolality Calculated 289 mOsm/kg (285-295); Sodium 140 mmol/L (136-145); Total Bilirubin 0.4 mg/dL (0.15-1.2); Total Protein 7.1 g/dL (6.6-8.7)
[2024-02-16 03:38] VITALS: BP 127/80; PULSE 82; RESP 14; O2SAT 90
== END 2024-02-16 03:37 | disposition home or self-care (01) ==
PROVIDERS: Emergency Provider Internal Medicine; PCP Family Medicine
DX: J44.1 Chronic obstructive pulmonary disease with (acute) exacerbation (principal); F17.210 Nicotine dependence, cigarettes, uncomplicated; I10 Essential (primary) hypertension
CPT/HCPCS: 71045; 80053; 83880; 85025; 94640; 96374; 99284; J2919

== ENCOUNTER → 2024-03-11 10:46 | Outpatient (BNVA) | payer MEDICARE, OTHER, SELFPAY | PROVIDERS: PCP Family Medicine; Visit Provider Student in an Organized Health Care Education/Training Program | DX: Z96.641 Presence of right artificial hip joint (principal) | CPT/HCPCS: 73502; 99213 ==

== ENCOUNTER 2024-08-22 09:39 | Outpatient (CLI) | payer MEDICARE, OTHER, SELFPAY ==
--- NOTE | 2024-08-22 09:53 | XR_ITS ---
WS: [id number] Exam: XR lumbar spine 2-3V* [id number] Date/Time of Exam: 08/22/2024 10:00 AM Reason For Exam: SPINAL STENOSIS OF LUMBAR REGION Comparison 08/14/2023. Posterior fusion extends from L4-S1 with pedicle screws and posterior rods. The fusion is in stable p osition. Grade 1 anterolisthesis L4 on L5 is unchanged. Facet arthropathy at L4-5 and L5-S1. Exaggera curly lumbar lordosis. Laminectomy of L4, L5 and S1. Partially visualized RIGHT total hip replacement. XR/XR lumbar spine 2-3V* [id number] IMPRESSION: 1. Stable appearing posterior fusion from L4-S1.
== END 2024-08-22 09:40 | disposition home or self-care (01) ==
PROVIDERS: PCP Family Medicine; Visit Provider Nurse Practitioner Family
DX: Z01.818 Encounter for other preprocedural examination (principal); M48.061 Spinal stenosis, lumbar region without neurogenic claudication; R10.9 Unspecified abdominal pain; M43.16 Spondylolisthesis, lumbar region; M40.56 Lordosis, unspecified, lumbar region; M43.27 Fusion of spine, lumbosacral region
CPT/HCPCS: 72100; 80053; 81003; 85025

== ENCOUNTER 2024-09-01 07:55 | Outpatient (CLI) | payer MEDICARE, OTHER, SELFPAY ==
[2024-09-01] MEDS: iohexol 350 mg/mL 500 mL Btl (per mL) IV (08:25)
--- NOTE | 2024-09-01 08:30 | CTR_ITS ---
PROCEDURE INFORMATION: Exam: CT Abdomen And Pelvis With Contrast Exam date and time: 09/01/2024 9:16 AM Age: 63 years old Clinical indication: Abdominal pain; Localized; Prior surgery; Surgery date: 6+ months; Surgery type: Appy, gb, hysterectomy; Patient HX: Lower abd tenderness x3 wks and weird noises ; RT hip pain; Additional info: Worsening pain TECHNIQUE: Imaging protocol: Computed tomography of the abdomen and pelvis with contrast. Radiation optimization: All CT scans at this facility use at least one of these dose optimization techniques: automated exposure control; mA and/or kV adjustment per patient size (includes targeted exams where dose is matched to clinical indication); or iterative reconstruction. Contrast material: OMNI 350; Contrast volume: 100 ml; Contrast route: INTRAVENOUS (IV); COMPARISON: CT abdomen w con* [id number] 12/31/2023 2:13 PM RADIATION DOSE METRICS: Total DLP (mGy-cm): 396.16 FINDINGS: Limitations: Streak artifact limits evaluation of the pelvis. Liver: Stable right hepatic lobe cyst. Stable scattered hypodense liver lesions which are too small to characterize but most probably benign representing cysts or tiny hemangiomas. Consider follow-up ultrasound. Gallbladder and biliary ducts: Cholecystectomy. There is no evidence of biliary ductal dilation. Pancreas: Benign fatty infiltration of the pancreas. Spleen: Normal. No splenomegaly. Adrenal glands: Normal. No mass. Kidneys and ureters: Stable benign right renal cyst. No follow-up recommended. Bilateral extrarenal pelvises, normal variant. There is no evidence of hydronephrosis. There is no perinephric stranding or fluid. No hydroureter. Stomach and bowel: Diffuse colonic diverticulosis. 2.2 cm segment of ascending/transverse colon (hepatic flexure) with circumferential wall thickening and shouldering. There is no evidence of intestinal obstruction. Appendix: No evidence of appendicitis. Intraperitoneal space: There is no evidence of free intraperitoneal or pelvic fluid. No intraperitoneal fluid collections. Vasculature: Mild atherosclerotic calcification of the arterial vasculature. No aortic aneurysms. Portal venous system is patent. Lymph nodes: There is no evidence of lymphadenopathy. Urinary bladder: Bladder is decompressed and difficult to evaluate. Reproductive: There has been a hysterectomy. Bones/joints: Prior lumbosacral spine fixation and laminectomies without complications. Prior complete right hip arthroplasty without complications. No acute fracture or aggressive osseous lesions. Soft tissues: Slight thickening of the right tensor fascia sam/iliotibial band, could be chronic. Chronic postsurgical scarring dorsal subcutaneous tissues at the lumbar region. CT/CT abdomen pelvis w con* [id number] IMPRESSION: Concern for a occult lesion or focal segment of peristalsis at the ascending colon/transverse colon junction (hepatic flexure). Follow-up colonoscopy is recommended.
== END 2024-09-01 07:56 | disposition home or self-care (01) ==
LOC: RAD 07:56
PROVIDERS: PCP Family Medicine; Visit Provider Family Medicine
DX: D37.4 Neoplasm of uncertain behavior of colon (principal); N28.1 Cyst of kidney, acquired; K57.90 Diverticulosis of intestine, part unspecified, without perforation or abscess without bleeding; K86.89 Other specified diseases of pancreas; Z90.49 Acquired absence of other specified parts of digestive tract; Z90.710 Acquired absence of both cervix and uterus
CPT/HCPCS: 74177

== ENCOUNTER → 2024-09-09 11:00 | Outpatient (BNVA) | payer MEDICARE, OTHER, SELFPAY | PROVIDERS: PCP Family Medicine; Visit Provider Student in an Organized Health Care Education/Training Program | DX: Z96.641 Presence of right artificial hip joint (principal); M76.31 Iliotibial band syndrome, right leg; M70.61 Trochanteric bursitis, right hip | CPT/HCPCS: 73502; 99213 ==

== ENCOUNTER → 2024-09-11 11:27 | Outpatient (BNVA) | payer MEDICARE, OTHER, SELFPAY | PROVIDERS: PCP Family Medicine; Visit Provider Surgery | DX: R10.9 Unspecified abdominal pain (principal); R19.7 Diarrhea, unspecified; R93.5 Abnormal findings on diagnostic imaging of other abdominal regions, including retroperitoneum | CPT/HCPCS: 99214 ==

== ENCOUNTER 2024-10-01 07:22 | Day surgery (SDC) | payer MEDICARE, OTHER, SELFPAY ==
[2024-10-01 07:52] VITALS: BP 136/87; PULSE 101; RESP 18; TEMP 37.2; O2SAT 93; BMI 28.9
[2024-10-01] MEDS: sodium chloride 0.9% 500 ML 15 ML IV (08:02)
--- NOTE | 2024-10-01 08:45 | ANES.PREANE2 ---
Pre-Anesthetic Assessment Height/Weight: Height 5 ft 2 in Weight 158 lb Temp Pulse Resp BP Pulse Ox O2 Del Method 99 F 101 H 18 136/87 93 Room Air 10/01/24 07:52 10/01/24 07:52 10/01/24 07:52 10/01/24 07:52 10/01/24 07:52 10/01/24 07:52 Preop Diagnosis: Screening colonoscopy Operation Date: 10/01/24 08:45 Proposed Procedures p Colonoscopy 30247, G0105, R10.9, R19.7(Not Applicable) - Dada Anderson, DO Was Beta Zak taken within 24 hours: N/A Was Clonidine taken within 24 hours: N/A Last intake: Intake Last Liquid Date 09/30/24 Last Liquid Time 20:00 Last Solid Date 09/29/24 Last Solid Time 17:00 Social Tobacco and No alcohol Exam alert, oriented x 3, clear to auscultation bilaterally and regular rate & rhythm Airway Submandibular: within normal limits Cervical ROM: within normal limits Mallampati: Class II Dentition: other (Edentulous, 2 bottom implant) Anesthetic Plan ASA status: 3 Anesthesia: MAC Other: Patient states that she lost her sense of taste for 30-40 days following her total joint procedure Completed bowel prep History of chronic pain, on chronic oxycodone GERD on Protonix Current smoker Denies any hypertension, preop BP 136/87 Able to perform ADLs Plan for MAC anesthetic Medications/Allergies Home Medications Medication Instructions Recorded Confirmed Last Taken Type oxycodone 10 mg tablet 10 mg PO BID PRN Pain 06/07/23 09/29/24 10/10/23 History clobetasol 0.05 % topical cream 1 applic topical DAILY PRN skin 07/14/24 09/29/24 Unknown Rx irritation #30 grams ropinirole 2 mg tablet 2 mg PO DAILY #30 tabs 09/02/24 09/29/24 09/30/24 Rx hydrocodone 5 mg-acetaminophen 325 1 tab PO Q6H PRN pain 7 days #28 09/16/24 09/29/24 09/29/24 Rx mg tablet tabs nebulizer #1 ea 09/16/24 Unknown Rx albuterol sulfate 2.5 mg/3 mL 2.5 mg (3 mL) inhalation QID PRN 09/18/24 09/29/24 09/29/24 Rx (0.083 %) solution for nebulization shortness of breath or wheezing #75 mL albuterol sulfate 90 mcg/actuation 2 puff inhalation QID PRN 09/29/24 09/29/24 10/01/24 History aerosol inhaler Shortness Of Breath Or Wheezing duloxetine 60 mg capsule,delayed 60 mg PO DAILY 09/29/24 09/29/24 09/30/24 History release fluticasone propionate 45 2 puff inhalation BID 09/29/24 09/29/24 10/01/24 History mcg-salmeterol 21 mcg/actuation HFA inhaler (Advair HFA) levocetirizine 5 mg tablet (Xyzal) 5 mg PO DAILY 09/29/24 09/29/24 09/30/24 History pantoprazole 40 mg tablet,delayed 40 mg PO DAILY 09/29/24 09/29/24 09/30/24 History release Allergies Allergy/AdvReac Type Severity Reaction Status Date / Time montelukast [From Singulair] Allergy Severe tongue Verified 09/29/24 08:54 swelling chlorzoxazone Allergy ALGY-Rash Verified 09/29/24 08:54 [From Parafon Forte DSC] Sulfa (Sulfonamide Allergy ALGY-Hives Verified 09/29/24 08:54 Antibiotics) Current Medications Generic Name Dose Route Start Last Admin Trade Name Freq PRN Reason Stop Dose Admin Sodium Chloride 500 mls @ 15 mls/hr 10/01/24 07:29 10/01/24 08:02 Sodium Chloride 0.9% IV 10/02/24 07:28 15 mls/hr .Q24H PRN Administration COLONOSCOPY FLUIDS PFSH Anesthesia Medical History Hypertension Tubular adenoma of colon Tobacco use High risk for hip fracture Osteopenia GERD (gastroesophageal reflux disease) Skin rash Degenerative joint disease (DJD) of lumbar spine Osteoarthritis, generalized Migraines COPD (chronic obstructive pulmonary disease) Asthma Joint pain Surgical History Hx of eye surgery History of hysterectomy with bilateral oophorectomy History of appendectomy History of cholecystectomy Family History Mother Diabetes Cancer Dementia Father Diabetes Cancer Brother Diabetes Denies family history of CAD (coronary artery disease) Clotting disorder Hyperlipidemia Psychiatric illness Chronic kidney disease (CKD) Suicide Anesthesia complication Bleeding disorder Family history of premature coronary artery disease Lung disease Hypertension Stroke Social History Smoking and tobacco/nicotine status: current every day tobacco/nicotine user cigarettes Packs smoked per day: 1 Years cigarettes smoked: 43 Alcohol intake: never Substance/Drug Use: never Lives independently: Yes Household members: spouse Marital status: Current occupational status: employed 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
--- NOTE | 2024-10-01 09:16 | W.PM.OPSUD ---
Surgery/Procedure H&P Update DATE OF PROCEDURE: October 01, 2024 DATE H&P PERFORMED: 09/11/24 H&P UPDATE INFORMATION: I have reviewed H&P completed within last 30 days, I have examined patient prior to procedure and No changes to prior documentation PREOP DIAGNOSIS: Screening colonoscopy PLANNED PROCEDURE: Operation Date: 10/01/24 08:45 Proposed Procedures p Colonoscopy 31874, G0105, R10.9, R19.7(Not Applicable) - Dada Anderson,
[2024-10-01 09:29] VITALS: BP 96/63; PULSE 89; RESP 16; TEMP 36.8; O2SAT 91
--- NOTE | 2024-10-01 09:31 | ANE.PACU2 ---
Inpatient post-anesthesia follow up: Airway intact: Yes Vital signs: Temperature 98.2 F Pulse Rate 89 Respiratory Rate 16 Blood Pressure 96/63 Pulse Oximetry 91 Oxygen Delivery Me thod Room Air Oxygen Flow Rate Fraction of Inspir ed Oxygen Hydration adequate: Yes Nausea and vomiting: No Pain level: 1 Mental status: Baseline
[2024-10-01 09:56] VITALS: BP 128/87; PULSE 81; RESP 16; O2SAT 100
[2024-10-01 10:40] LABS: C.Diff PCR (Lab) NEGATIVE (Negative)
== END 2024-10-01 10:20 | disposition home or self-care (01) ==
PROVIDERS: PCP Family Medicine; Visit Provider Surgery
PROC: 0DJD8ZZ Inspection of Lower Intestinal Tract, Via Natural or Artificial Opening Endoscopic (ICD-10-PCS; CPT 45378; principal; 2024-10-01 08:45)
DX: R19.7 Diarrhea, unspecified (principal); R19.4 Change in bowel habit; Z86.0100 Personal history of colon polyps, unspecified; I10 Essential (primary) hypertension; K21.9 Gastro-esophageal reflux disease without esophagitis; J44.9 Chronic obstructive pulmonary disease, unspecified; G89.29 Other chronic pain; Z79.891 Long term (current) use of opiate analgesic; F17.210 Nicotine dependence, cigarettes, uncomplicated
CPT/HCPCS: 45380; 82274; 83630; 87045; 87177; 87209; 87427; 87449; 87493; 88305; J2704; J7040

== ENCOUNTER → 2024-10-13 09:17 | Outpatient (BNVA) | payer MEDICARE, OTHER, SELFPAY | PROVIDERS: PCP Family Medicine; Visit Provider Surgery | DX: Z09 Encounter for follow-up examination after completed treatment for conditions other than malignant neoplasm (principal); K59.04 Chronic idiopathic constipation; R19.8 Other specified symptoms and signs involving the digestive system and abdomen; R93.5 Abnormal findings on diagnostic imaging of other abdominal regions, including retroperitoneum | CPT/HCPCS: 99214 ==

== ENCOUNTER 2024-10-24 11:19 | Emergency (ER) | payer MEDICARE, OTHER, SELFPAY ==
--- NOTE | 2024-10-24 11:31 | XR_ITS ---
WS: [id number] PORTABLE CHEST HISTORY: cough COMPARISON: 02/16/2024 Mild pulmonary hyperinflation. No pneumonia. Normal vasculature. Thin linear scar at the lingula. No pleural effusion or pneumothorax. Cardiac size: Normal. Mediastinum/Aorta: Normal mediastinum. Focal sclerosis proximal RIGHT humerus most consistent with an enchondroma. No change since 11/27/2019 . XR/XR chest 1V portable [id number] IMPRESSION: Mild pulmonary hyperinflation. Otherwise negative.
[2024-10-24 11:44] VITALS: BP 125/84; PULSE 89; RESP 18; TEMP 36.9; O2SAT 96; BMI 28.9
--- NOTE | 2024-10-24 12:07 | ED_ITS ---
HPI - URI/Sore Throat 2 General: Chief Complaint: Upper Respiratory Infection Stated Complaint: cough Time Seen by Provider: 10/24/24 12:06 History of Present Illness: 63-year-old female presents emergency ro om complaining of productive cough chills and fever been going on according to her report for at least 2 months. She has been on antibiotics and steroids previously with no improvement. She has been tested for respiratory viruses. Patient is a smoker. Associated symptoms: Deny abdominal pain, chills, chest pain or fever(s) Related Data Home Medications Medication Instructions Recorded Confirmed albuterol sulfate 90 mcg/actuation 2 puff inhalation QID PRN 09/29/24 10/24/24 aerosol inhaler Shortness Of Breath Or Wheezing duloxetine 60 mg capsule,delayed 60 mg PO QAM 09/29/24 10/24/24 release fluticasone propionate 45 2 puff inhalation BID 09/29/24 10/24/24 mcg-salmeterol 21 mcg/actuation HFA inhaler (Advair HFA) levocetirizine 5 mg tablet (Xyzal) 5 mg PO DAILY 09/29/24 10/24/24 pantoprazole 40 mg tablet,delayed 40 mg PO DAILY 09/29/24 10/24/24 release cholecalciferol (vitamin D3) 50 50 mcg PO DAILY 10/24/24 10/24/24 mcg (2,000 unit) tablet (Vitamin D3) hydrocortisone 2.5 % topical cream 1 applic topical PRN PRN Skin 10/24/24 10/24/24 with perineal applicator Irritation ropinirole 2 mg tablet 2 mg PO QPM 10/24/24 10/24/24 Previous Rx's Medication Instructions Recorded clobetasol 0.05 % topical cream 1 applic topical DAILY PRN skin 07/14/24 irritation #30 grams nebulizer #1 ea 09/16/24 albuterol sulfate 2.5 mg/3 mL 2.5 mg (3 mL) inhalation QID PRN 09/18/24 (0.083 %) solution for nebulization shortness of breath or wheezing #75 mL hydrocodone 5 mg-acetaminophen 325 1 tab PO Q6H PRN pain 7 days #28 10/10/24 mg tablet tabs quad tip cane #1 ea 10/10/24 fluticasone 250 mcg-salmeterol 50 1 inh inhalation BID #60 ea 10/24/24 mcg/dose blistr powdr for inhalation (Advair Diskus) prednisone 20 mg tablet 20 mg PO TID #15 tabs 10/24/24 Allergies Allergy/AdvReac Type Severity Reaction Status Date / Time montelukast [From Singulair] Allergy Severe tongue Verified 10/24/24 11:46 swelling chlorzoxazone Allergy ALGY-Rash Verified 10/24/24 11:46 [facility] Sulfa (Sulfonamide Allergy ALGY-Hives Verified 10/24/24 11:46 Antibiotics) Review of Systems 2 Const: Denies: fever(s) or chills Card: Denies: chest pain Resp: Reports: dyspnea, productive cough, wheezing and chest congestion GI: Denies: abdominal pain : Denies: dysuria, urinary frequency or urinary urgency Musc: Denies: neck pain or back pain Skin/Breast: Denies: rash PFSH ED 2 PFSH: Medical History Hypertension Tubular adenoma of colon Tobacco use High risk for hip fracture Osteopenia GERD (gastroesophageal reflux disease) Skin rash Degenerative joint disease (DJD) of lumbar spine Osteoarthritis, generalized Migraines COPD (chronic obstructive pulmonary disease) Asthma Joint pain Surgical History Hx of eye surgery History of hysterectomy with bilateral oophorectomy History of appendectomy History of cholecystectomy Family History Mother Diabetes Cancer Dementia Father Diabetes Cancer Brother Diabetes Denies family history of CAD (coronary artery disease) Clotting disorder Hyperlipidemia Psychiatric illness Chronic kidney disease (CKD) Suicide Anesthesia complication Bleeding disorder Family history of premature coronary artery disease Lung disease Hypertension Stroke Social History Smoking and tobacco/nicotine status: current every day tobacco/nicotine user cigarettes Packs smoked per day: 1 Years cigarettes smoked: 43 Alcohol intake: never Substance/Drug Use: never Lives independently: Yes Household members: spouse Marital status: Current occupational status: employed 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 Physical Exam 2 Const: GENERAL APPEARANCE: cooperative ORIENTATION/CONSCIOUSNESS: Yes awake, Yes oriented to person, Yes oriented to place and Yes oriented to time HENMT: COMMON NORMALS: normocephalic, atraumatic and hearing grossly normal bilaterally HEAD & SCALP: normocephalic and atraumatic Resp: COMMON NORMALS: normal respiratory effort, No retractions, No use of accessory muscles and clear to auscultation bilaterally AUSCULTATION: clear to auscultation bilaterally Cardio: COMMON NORMALS: regular rate, regular rhythm and No murmurs present (Cardio) RATE: regular rate RHYTHM: regular rhythm GI: COMMON NORMALS: Soft to palpation and No hepatosplenomegaly present A USCULTATION: Yes normoactive bowel sounds PALPATION: Yes Soft to palpation, No Tenderness to palpation present (GI), No Guarding due to palpation present (GI) and Yes No hepatosplenomegaly present Extremity: COMMON NORMALS: normal to inspection, capillary refill normal, no clubbing, cyanosis or edema, no calf tenderness and no pedal edema Neuro: SENSORIUM/ORIENTATION: Yes oriented to person, Yes oriented to place and Yes oriented to time Skin: COMMON NORMALS: no rashes or lesions noted GENERAL SKIN EXAM: no rashes or lesions noted Course 2 Vital Signs: Vital signs: Vital Signs Temperature 98.4 F 10/24/24 11:44 Pulse Rate 85 10/24/24 14:20 Respiratory Rate 16 10/24/24 13:26 Blood Pressure 135/95 10/24/24 14:20 Pulse Oximetry 95 10/24/24 14:20 Oxygen Delivery Me thod Room Air 10/24/24 13:26 MDM - URI/Sore Throat Medical Decision Making No acute findings on chest x-ray swab for flu COVID RSV was positive for RSV. This is an antigen suspect she had another underlying respiratory issue going on and now is also contracted RSV. Will put another round of steroids start Advair use albuterol as needed follow-up with primary care Medical Records I reviewed the patient's medical records. Lab Data I reviewed the patient's lab results. 10/24/24 12:42 10/24/24 12:42 Radiology Impressions Chest X-Ray 10/24/24 11:31 IMPRESSION: Mild pulmonary hyperinflation. Otherwise negative. Laboratory Results WBC 4.84 10^3/uL (3.29-11.43) 10/24/24 12:42 RBC 4.91 10^6/uL (3.85-5.65) 10/24/24 12:42 Hgb 13.30 g/dL (11.27-16.99) 10/24/24 12:42 Hct 42.5 % (36-47) 10/24/24 12:42 MCV 86.6 fl (85-98) 10/24/24 12:42 MCH 27.1 pg (27-33) 10/24/24 12:42 MCHC 31.3 g/dL (30-55) 10/24/24 12:42 RDW 14.5 % (12.1-15.1) 10/24/24 12:42 Plt Count 249 10^3/cmm (157-399) 10/24/24 12:42 MPV 10.0 fL (7.4-10.4) 10/24/24 12:42 Neut % (Auto) 54.0 % 10/24/24 12:42 Lymph % (Auto) 32.4 % 10/24/24 12:42 Benson % (Auto) 9.9 % 10/24/24 12:42 Eos % (Auto) 2.9 % 10/24/24 12:42 Baso % (Auto) 0.6 % 10/24/24 12:42 Neut # (Auto) 2.61 10^3/uL (1.8-7.7) 10/24/24 12:42 Lymph # (Auto) 1.6 10^3/uL (0.8-4.8) 10/24/24 12:42 Benson # (Auto) 0.5 10^3/uL (0.2-0.9) 10/24/24 12:42 Eos # (Auto) 0.1 10^3/uL (0.0-0.8) 10/24/24 12:42 Baso # (Auto) 0.0 10^3/uL (0.0-0.1) 10/24/24 12:42 Nucleated RBC % (auto) 0 % 10/24/24 12:42 Nucleated RBCs # 0.0 /100WBC 10/24/24 12:42 Sodium 139 mmol/L (136-145) 10/24/24 12:42 Potassium 4.5 mmol/L (3.5-5.1) 10/24/24 12:42 Chloride 102 mmol/L (98-107) 10/24/24 12:42 Carbon Dioxide 28 mmol/L (22-29) 10/24/24 12:42 Anion Gap 13.5 (5-19) 10/24/24 12:42 BUN 6 mg/dL (8-23) L 10/24/24 12:42 Creatinine 0.7 mg/dL (0.5-0.9) 10/24/24 12:42 GFR Calculation 84.0 mL/min (90-130) L 10/24/24 12:42 Glucose 106 mg/dL (65-115) 10/24/24 12:42 Calculated Osmolality 286 mOsm/kg (285-295) 10/24/24 12:42 Calcium 9.1 mg/dL (8.5-10.5) 10/24/24 12:42 Total Bilirubin 0.7 mg/dL (0.15-1.2) 10/24/24 12:42 AST 18 U/L (0-32) 10/24/24 12:42 ALT 17 U/L (0-33) 10/24/24 12:42 Alkaline Phosphatase 105 U/L (35-105) 10/24/24 12:42 C-Reactive Protein 3.0 mg/L (0.0-4.9) 10/24/24 12:42 NT-Pro-B Natriuret Pep 103 pg/mL (0-125) 10/24/24 12:42 Total Protein 7.1 g/dL (6.6-8.7) 10/24/24 12:42 Albumin 4.2 g/dL (3.5-5.2) 10/24/24 12:42 Globulin 2.9 g/dL (1.3-4.6) 10/24/24 12:42 Coronavirus (PCR) Negative (Negative) 10/24/24 12:37 Influenza A (PCR) Negative (Negative) 10/24/24 12:37 Influenza Type B (PCR) Negative (Negative) 10/24/24 12:37 RSV (PCR) Positive (Negative) A 10/24/24 12:37 All radiology interpretation(s) finalized by discharge Discharge Plan Discharge Patient Disposition: Home Clinical Impression: RSV bronchitis Condition: Stable Prescriptions: New prednisone 20 mg tablet 20 mg PO TID Qty: 15 0RF Rx Instructions: 1 p.o. 3 times daily x3 days, 1 p.o. twice daily x2 days, 1 p.o. daily x2 days fluticasone propion-salmeterol [Advair Diskus] 250-50 mcg/dose blister with device 1 inh inhalation BID Qty: 60 0RF No Action clobetasol 0.05 % cream 1 applic topical DAILY PRN (Reason: skin irritation) Qty: 30 0RF (DME) nebulizer See Rx Instructions .Route .MEDSUPPLY Qty: 1 0RF Rx Instructions: As directed albuterol sulfate 2.5 mg /3 mL (0.083 %) solution for nebulization 2.5 mg inhalation QID PRN (Reason: shortness of breath or wheezing) Qty: 75 0RF (DME) quad tip cane See Rx Instructions .Route .MEDSUPPLY Qty: 1 0RF Rx Instructions: As directed hydrocodone-acetaminophen 5-325 mg tablet 1 tab PO Q6H PRN (Reason: pain) 7 Days Qty: 28 0RF levocetirizine [Xyzal] 5 mg Tablet 5 mg PO DAILY pantoprazole 40 mg tablet,delayed release (DR/EC) 40 mg PO DAILY albuterol sulfate 90 mcg/actuation HFA aerosol inhaler 2 puff inhalation QID PRN (Reason: Shortness Of Breath Or Wheezing) duloxetine 60 mg capsule,delayed release(DR/EC) 60 mg PO QAM fluticasone propion-salmeterol [Advair HFA] 45-21 mcg/actuation HFA aerosol inhaler 2 puff inhalation BID hydrocortisone 2.5 % cream with perineal applicator 1 applic topical PRN PRN (Reason: Skin Irritation) cholecalciferol (vitamin D3) [Vitamin D3] 50 mcg (2,000 unit) Tablet 50 mcg PO DAILY ropinirole 2 mg tablet 2 mg PO QPM Discharge Orders: Discharge ED (Routine); Ordered 10/24/24 Ordered By: Cooper Crump Referrals: Tarah Aquino MD [Primary Care Provider] - Discharge Diet: Usual diet Discharge Activity: Increase activity as tolerated Patient Instructions: RSV (Respiratory Syncytial Virus) Infection (ED), Opioid Safety, Pain Management Activity Restrictions/Additional Instructions: Thank you for choosing [facility] for your healthcare needs today. It is very important that you follow up as instructed or that you return to the Emergency Department should you have concerns or if your condition changes or worsens in any way. You are seen in the emergency room for persistent cough. He tested positive for RSV. Symptoms you had are typical for RSV. I do take several weeks even months to resolve. Recommend starting on Advair 1 puff twice daily also use albuterol as needed up with your another course of oral steroids. No antibiotics or antivirals are effective against RSV. Coding Level of Care Code ED Icebox Man for Nabila Westbrook
--- NOTE | 2024-10-24 12:14 | ECG_ITS ---
[facility] Date: 2024-10[facility]24 Pat Name: Hayley Chun Department: Room: Gender: Female Jumbo Operator: : 1960 Requested By: Cooper Hathaway Order Number: [id number] Ej MD: Michael Treadwell M.D. Measurements Intervals [place] Rate: 82 P: 79 IA: 136 QRS: 53 QRSD: 76 T: 53 QT: 358 QTc: 419 Interpretive Statements SINUS RHYTHM Compared to ECG 08/25/2022 23:54:00 No significant changes Electronically Signed On 10-24-2024 18:29:06 CHARTING CLERK by Michael Treadwell M.D. [email or web address]
[2024-10-24 12:47] LABS: Basophils % 0.6 %; Eosinophils # 0.1 10^3/uL (0.0-0.8); Eosinophils % 2.9 %; Hematocrit 42.5 % (36-47); Lymphocytes # 1.6 10^3/uL (0.8-4.8); Lymphocytes % 32.4 %; Mean Corpuscular HGB Conc 31.3 g/dL (30-55); Mean Corpuscular Hemoglobin 27.1 pg (27-33); Mean Corpuscular Volume 86.6 fl (85-98); Monocytes # 0.5 10^3/uL (0.2-0.9); Monocytes % 9.9 %; Neutrophils # 2.61 10^3/uL (1.8-7.7); Nucleated Red Blood Cells % 0 %; Platelet Count 249 10^3/cmm (157-399); Red Blood Count 4.91 10^6/uL (3.85-5.65); Red Cell Distribution Width 14.5 % (12.1-15.1); White Blood Count 4.84 10^3/uL (3.29-11.43)
[2024-10-24 13:17] LABS: Alanine Aminotransferase 17 U/L (0-33); Albumin Level 4.2 g/dL (3.5-5.2); Alkaline Phosphatase 105 U/L (35-105); Anion Gap 13.5 (5-19); Aspartate Amino Transferase 18 U/L (0-32); Blood Urea Nitrogen 6 mg/dL (8-23); Calcium 9.1 mg/dL (8.5-10.5); Carbon Dioxide 28 mmol/L (22-29); Chloride 102 mmol/L (98-107); Creatinine Clr Calc Pharmacy 64.9976; Globulin 2.9 g/dL (1.3-4.6); Glucose 106 mg/dL (65-115); NT Pro B Type Natriuretic Pept 103 pg/mL (0-125); Osmolality Calculated 286 mOsm/kg (285-295); Potassium 4.5 mmol/L (3.5-5.1); Sodium 139 mmol/L (136-145); Total Bilirubin 0.7 mg/dL (0.15-1.2); Total Protein 7.1 g/dL (6.6-8.7)
[2024-10-24 13:26] VITALS: PULSE 77; RESP 16; O2SAT 96
[2024-10-24] MEDS: budesonide 0.5 mg/2 mL Neb INHALATION (13:26)
[2024-10-24] MEDS: ipratropium-albuterol 3 mL Neb INHALATION (13:27)
[2024-10-24 13:34] LABS: Covid PCR NEGATIVE (Negative); Influenza A NEGATIVE (Negative); Influenza B NEGATIVE (Negative)
[2024-10-24] MEDS: dexamethasone 10 mg/mL INJ IM (13:42)
[2024-10-24 13:45] VITALS: BP 128/84; PULSE 82; O2SAT 95
[2024-10-24 13:46] LABS: Respiratory Syncytial Virus Ce POSITIVE (Negative)
[2024-10-24 14:20] VITALS: BP 135/95; PULSE 85; O2SAT 95
== END 2024-10-24 14:20 | disposition home or self-care (01) ==
PROVIDERS: Emergency Provider Family Medicine; PCP Family Medicine
DX: J20.5 Acute bronchitis due to respiratory syncytial virus (principal); Z11.52 Encounter for screening for COVID-19; F17.210 Nicotine dependence, cigarettes, uncomplicated; J44.9 Chronic obstructive pulmonary disease, unspecified; I10 Essential (primary) hypertension
CPT/HCPCS: 71045; 80053; 83880; 85025; 86140; 87637; 93005; 94640; 96372; 99285; J1100; J7626

== ENCOUNTER → 2024-11-05 10:44 | Outpatient (BNVA) | payer MEDICARE, OTHER, SELFPAY | PROVIDERS: PCP Family Medicine; Visit Provider Physician Assistant | DX: M70.61 Trochanteric bursitis, right hip (principal); Z96.641 Presence of right artificial hip joint | CPT/HCPCS: 73502; 99213 ==

== ENCOUNTER → 2024-11-10 09:03 | Outpatient (BNVA) | payer MEDICARE, OTHER, SELFPAY | PROVIDERS: PCP Family Medicine; Visit Provider Surgery | DX: Z09 Encounter for follow-up examination after completed treatment for conditions other than malignant neoplasm (principal); K59.04 Chronic idiopathic constipation; R19.8 Other specified symptoms and signs involving the digestive system and abdomen; R93.5 Abnormal findings on diagnostic imaging of other abdominal regions, including retroperitoneum; D12.6 Benign neoplasm of colon, unspecified; K21.9 Gastro-esophageal reflux disease without esophagitis; R13.10 Dysphagia, unspecified | CPT/HCPCS: 99214 ==

== ENCOUNTER 2024-11-26 11:13 | Day surgery (SDC) | payer MEDICARE, OTHER, SELFPAY ==
[2024-11-26 11:25] VITALS: BP 133/81; PULSE 85; RESP 16; TEMP 36.4; O2SAT 95
[2024-11-26] MEDS: sodium chloride 0.9% 500 ML 15 ML IV (11:40)
--- NOTE | 2024-11-26 12:29 | ANES.PREANE2 ---
Pre-Anesthetic Assessment Height/Weight: Height 1.57 m Weight 71.668 kg Temp Pulse Resp BP Pulse Ox O2 Del Method 97.5 F L 85 16 133/81 95 Room Air 11/26/24 11:11/26/24 11:11/26/24 11:11/26/24 11:11/26/24 11:11/26/24 11:25 Preop Diagnosis: dysphagia Operation Date: 11/26/24 12:30 Proposed Procedures p EGD Dilation W/ Balloon [id number], R13.10(Not Applicable) - Dada Anderson DO Familial anesthetic complications: none Was Beta Zak taken within 24 hours: N/A Last intake: Intake Last Liquid Date 11/25/24 Last Liquid Time 20:00 Last Solid Date 11/25/24 Last Solid Time 20:00 Social Tobacco and No alcohol Exam alert, oriented x 3, clear to auscultation bilaterally and regular rate & rhythm Airway Submandibular: within normal limits Cervical ROM: within normal limits Mallampati: Class I Dentition: false Pulmonary Asthma and Chronic Obstructive Pulmonary Disease CV/HEM None reported None reported Hepatic None reported GI Gastroesophageal Reflux Disease dysphagia Metabolic None reported Musc/skel Osteoarthritis/DJD Neuropsych None reported Anesthetic Plan ASA status: 2 Anesthesia: MAC Medications/Allergies Home Medications Medication Instructions Recorded Confirmed Last Taken Type clobetasol 0.05 % topical cream 1 applic topical DAILY PRN skin 07/14/24 11/24/24 11/25/24 Rx irritation #30 grams nebulizer #1 ea 09/16/24 11/10/24 11/25/24 Rx albuterol sulfate 2.5 mg/3 mL 2.5 mg (3 mL) inhalation QID PRN 09/18/24 11/24/24 11/26/24 Rx (0.083 %) solution for nebulization shortness of breath or wheezing #75 mL albuterol sulfate 90 mcg/actuation 2 puff inhalation QID PRN 09/29/24 11/24/24 11/24/24 History aerosol inhaler Shortness Of Breath Or Wheezing fluticasone propionate 45 2 puff inhalation BID 09/29/24 11/24/24 11/25/24 History mcg-salmeterol 21 mcg/actuation HFA inhaler (Advair HFA) levocetirizine 5 mg tablet (Xyzal) 5 mg PO DAILY 09/29/24 11/24/24 11/25/24 History quad tip cane #1 ea 10/10/24 11/10/24 11/25/24 Rx cholecalciferol (vitamin D3) 50 50 mcg PO DAILY 10/24/24 11/24/24 11/25/24 History mcg (2,000 unit) tablet (Vitamin D3) duloxetine 60 mg capsule,delayed 60 mg PO QAM #90 caps 10/31/24 11/24/24 11/25/24 Rx release ropinirole 2 mg tablet 2 mg PO QPM #90 tabs 10/31/24 11/24/24 11/25/24 Rx hydrocodone 5 mg-acetaminophen 325 1 tab PO Q6H PRN pain 5 days #20 11/05/24 11/24/24 11/26/24 Rx mg tablet tabs pantoprazole 40 mg tablet,delayed 40 mg PO BID 6 weeks #84 tabs 11/10/24 11/24/24 11/25/24 Rx release (Protonix) sucralfate 100 mg/mL oral 10 ml PO BID 8 weeks #1,120 mL 11/10/24 11/24/24 11/25/24 Rx suspension Allergies Allergy/AdvReac Type Severity Reaction Status Date / Time montelukast [From Singulair] Allergy Severe tongue Verified 11/24/24 11:27 swelling chlorzoxazone Allergy ALGY-Rash Verified 11/24/24 11:27 [From Parafon Forte DSC] Sulfa (Sulfonamide Allergy ALGY-Hives Verified 11/24/24 11:27 Antibiotics) Current Medications Generic Name Dose Route Start Last Admin Trade Name Freq PRN Reason Stop Dose Admin Sodium Chloride 500 mls @ 15 mls/hr 11/26/24 11:18 11/26/24 11:40 Sodium Chloride 0.9% IV 11/27/24 11:17 15 mls/hr .Q24H PRN Administration COLONOSCOPY FLUIDS PFSH Anesthesia Medical History Hypertension Tubular adenoma of colon Tobacco use High risk for hip fracture Osteopenia GERD (gastroesophageal reflux disease) Skin rash Degenerative joint disease (DJD) of lumbar spine Osteoarthritis, generalized Migraines COPD (chronic obstructive pulmonary disease) Asthma Joint pain Surgical History Hx of eye surgery History of hysterectomy with bilateral oophorectomy History of appendectomy History of cholecystectomy Family History Mother Diabetes Cancer Dementia Father Diabetes Cancer Brother Diabetes Denies family history of CAD (coronary artery disease) Clotting disorder Hyperlipidemia Psychiatric illness Chronic kidney disease (CKD) Suicide Anesthesia complication Bleeding disorder Family history of premature coronary artery disease Lung disease Hypertension Stroke Social History Smoking and tobacco/nicotine status: current every day tobacco/nicotine user cigarettes Packs smoked per day: 1 Years cigarettes smoked: 43 Alcohol intake: never Substance/Drug Use: never Lives independently: Yes Household members: spouse Marital status: Current occupational status: employed 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
--- NOTE | 2024-11-26 13:00 | W.PM.OPSUD ---
Surgery/Procedure H&P Update DATE OF PROCEDURE: November 26, 2024 DATE H&P PERFORMED: 11/10/24 H&P UPDATE INFORMATION: I have reviewed H&P completed within last 30 days, I have examined patient prior to procedure and No changes to prior documentation PREOP DIAGNOSIS: dysphagia PLANNED PROCEDURE: Operation Date: 11/26/24 12:30 Proposed Procedures p EGD Dilation W/ Balloon 48834, R13.10(Not Applicable) - Dada Anderson DO
[2024-11-26 13:16] VITALS: BP 113/65; PULSE 84; RESP 16; TEMP 36.4; O2SAT 96
[2024-11-26 13:21] VITALS: BP 106/79; PULSE 81; RESP 16; O2SAT 97
[2024-11-26 13:29] VITALS: BP 129/75; PULSE 79; RESP 16; O2SAT 94
--- NOTE | 2024-11-26 13:55 | ANE.PACU2 ---
Inpatient post-anesthesia follow up: Airway intact: Yes Vital signs: Temperature 97.6 F Pulse Rate 79 Respiratory Rate 16 Blood Pressure 129/75 Pulse Oximetry 94 Oxygen Delivery Me thod Room Air Oxygen Flow Rate Fraction of Inspir ed Oxygen Hydration adequate: Yes Nausea and vomiting: No Pain level: 1 Mental status: Baseline
== END 2024-11-26 13:56 | disposition home or self-care (01) ==
PROVIDERS: PCP Family Medicine; Visit Provider Surgery
DX: K22.2 Esophageal obstruction (principal); K21.9 Gastro-esophageal reflux disease without esophagitis; R13.10 Dysphagia, unspecified; J44.9 Chronic obstructive pulmonary disease, unspecified; M19.90 Unspecified osteoarthritis, unspecified site; I10 Essential (primary) hypertension; Z90.49 Acquired absence of other specified parts of digestive tract; F17.210 Nicotine dependence, cigarettes, uncomplicated; K59.04 Chronic idiopathic constipation; D12.6 Benign neoplasm of colon, unspecified; Z79.899 Other long term (current) drug therapy; Z88.8 Allergy status to other drugs, medicaments and biological substances; Z88.2 Allergy status to sulfonamides
CPT/HCPCS: 43239; 43249; 88305; J2704; J7040

== ENCOUNTER → 2024-12-15 10:26 | Outpatient (BNVA) | payer MEDICARE, OTHER, SELFPAY | PROVIDERS: PCP Family Medicine; Visit Provider Surgery | DX: Z09 Encounter for follow-up examination after completed treatment for conditions other than malignant neoplasm (principal); K22.2 Esophageal obstruction; R13.10 Dysphagia, unspecified; K21.9 Gastro-esophageal reflux disease without esophagitis | CPT/HCPCS: 99214 ==

== ENCOUNTER → 2025-01-12 15:32 | Outpatient (BNVA) | payer MEDICARE, OTHER, SELFPAY | PROVIDERS: PCP Family Medicine; Visit Provider Family Medicine | DX: Z79.899 Other long term (current) drug therapy (principal); M79.10 Myalgia, unspecified site | CPT/HCPCS: 80053; 85651; 86140 ==

== ENCOUNTER → 2025-01-21 09:08 | Outpatient (BNVA) | payer MEDICARE, OTHER, SELFPAY | PROVIDERS: PCP Family Medicine; Visit Provider Student in an Organized Health Care Education/Training Program | DX: Z96.641 Presence of right artificial hip joint (principal); M76.30 Iliotibial band syndrome, unspecified leg | CPT/HCPCS: 73502; 99213 ==

== ENCOUNTER → 2025-01-26 09:57 | Outpatient (BNVA) | payer MEDICARE, OTHER, SELFPAY | PROVIDERS: PCP Family Medicine; Visit Provider Internal Medicine Rheumatology | DX: M19.90 Unspecified osteoarthritis, unspecified site (principal); M15.9 Polyosteoarthritis, unspecified; M47.816 Spondylosis without myelopathy or radiculopathy, lumbar region; R21 Rash and other nonspecific skin eruption; M25.50 Pain in unspecified joint; Z79.899 Other long term (current) drug therapy | CPT/HCPCS: 36415; 80076; 82565; 83520; 84550; 85025; 85651; 86140; 99214 ==

== ENCOUNTER 2025-02-23 13:47 | Emergency (ER) | payer MEDICARE, OTHER, SELFPAY ==
[2025-02-23 13:59] VITALS: BP 160/99; PULSE 99; RESP 18; TEMP 36.6; O2SAT 97; BMI 32.5
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
[2025-02-23] MEDS: morphine 4 mg/mL SDV 1 mL IM (14:44)
[2025-02-23] MEDS: lidocaine-prilocaine cream 5 gm 2 APPLIC TOPICAL (14:44)
[2025-02-23] MEDS: neomycin-poly-bacitracin oint 0.9 gm Pkt 1 APPLIC TOPICAL (14:44)
[2025-02-23] MEDS: ondansetron 2 mg/ML SDV 2 mL 4 MG IM (14:44)
== END 2025-02-23 15:35 | disposition home or self-care (01) ==
PROVIDERS: Emergency Provider Physician Assistant; PCP Family Medicine
DX: T22.111A Burn of first degree of right forearm, initial encounter (principal); T22.212A Burn of second degree of left forearm, initial encounter; I10 Essential (primary) hypertension; J44.9 Chronic obstructive pulmonary disease, unspecified; X03.0XXA Exposure to flames in controlled fire, not in building or structure, initial encounter
CPT/HCPCS: 96372; 99284; 99291; J2270; J2405; J9999

== ENCOUNTER → 2025-03-06 08:44 | Outpatient (BNVA) | payer MEDICARE, OTHER, SELFPAY | PROVIDERS: PCP Family Medicine; Visit Provider Family Medicine | DX: R63.5 Abnormal weight gain (principal) | CPT/HCPCS: 84443 ==

== ENCOUNTER 2025-03-11 09:30 | Outpatient (CLI) | payer MEDICARE, OTHER, SELFPAY ==
--- NOTE | 2025-03-11 09:34 | XR_ITS ---
WS: [id number] Comparison 08/22/2024. Stable appearing posterior fusion of the spine extends from L4-S1 with pedicle screws and posterior rods. Mild chronic anterolisthesis of L4 on L5 is stable in appearance. No hardware complication identified. Decompression laminectomies noted. Increased lumbar lordosis. The remainder of the lumbar spine is unremarkable. Osteopenia. XR/XR lumbar spine 2-3V* [id number] IMPRESSION: 1. Stable appearing posterior fusion from L4-S1. No complication or change.
== END 2025-03-11 09:31 | disposition home or self-care (01) ==
LOC: RAD 09:33
PROVIDERS: PCP Family Medicine; Visit Provider Family Medicine
DX: S39.92XA Unspecified injury of lower back, initial encounter (principal); W19.XXXA Unspecified fall, initial encounter; Z98.1 Arthrodesis status; M43.16 Spondylolisthesis, lumbar region; M96.89 Other intraoperative and postprocedural complications and disorders of the musculoskeletal system; R93.7 Abnormal findings on diagnostic imaging of other parts of musculoskeletal system; M85.88 Other specified disorders of bone density and structure, other site
CPT/HCPCS: 72100

== ENCOUNTER 2025-04-15 07:19 | Outpatient (CLI) | payer MEDICARE, OTHER, MEDICAID, SELFPAY ==
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
[2025-04-15] MEDS: gadobenate dimeglumine 20 mL vial IV (08:07)
== END 2025-04-15 07:20 | disposition home or self-care (01) ==
PROVIDERS: PCP Family Medicine; Visit Provider Emergency Medicine
DX: M89.9 Disorder of bone, unspecified (principal); M75.101 Unspecified rotator cuff tear or rupture of right shoulder, not specified as traumatic; M67.813 Other specified disorders of tendon, right shoulder; M75.21 Bicipital tendinitis, right shoulder; D16.01 Benign neoplasm of scapula and long bones of right upper limb; M19.011 Primary osteoarthritis, right shoulder; M65.911 Unspecified synovitis and tenosynovitis, right shoulder
CPT/HCPCS: 73223

== ENCOUNTER → 2025-05-12 10:30 | Outpatient (BNVA) | payer MEDICARE, MEDICAID, SELFPAY | PROVIDERS: PCP Family Medicine; Visit Provider Internal Medicine Rheumatology | DX: Z79.899 Other long term (current) drug therapy (principal); M85.80 Other specified disorders of bone density and structure, unspecified site; M15.9 Polyosteoarthritis, unspecified; M47.816 Spondylosis without myelopathy or radiculopathy, lumbar region; M06.041 Rheumatoid arthritis without rheumatoid factor, right hand; M06.042 Rheumatoid arthritis without rheumatoid factor, left hand | CPT/HCPCS: 36415; 80076; 82085; 82306; 82550; 82565; 85025; 85651; 86140; 86480; 86704; 86803; 87340; 99214 ==

== ENCOUNTER 2025-05-21 10:36 | Emergency (ER) | payer MEDICARE, MEDICAID, SELFPAY ==
--- OUTSIDE RECORDS SUMMARY | 2024-03-26 03:30 | XMS_ITS ---
Author Organization [facility] Address [address] [place], [place] [id number] Care Team Providers Care Marketing Teacher Name Role Phone Adama Zuñiga DO Primary Care Provider Shabnam Reyes MD, Nitin Unavailable [phone] Allergies Allergen (clinical drug ingredient) Drug/Non Drug [...] mes a day (before meals and at bedtime) for 30 day(s) 01/16/2024 Active Motrin IB 200 [...] 5 mg 1 tab(s) orally once a day for 30 day(s) Active Centrum MultiGummies Women Active alendronate 70 mg 1 tab(s) orally once a week for 28 day(s) Active oxyCODONE 20 mg 1/2 [...] Location Date Provider Diagnosis [facility] [address] [place], [place] [id number] 03/26/2024 Nitin Reneefelicity Vertebrogenic low ba ck pain M54.51 ; [...] * Hayley LOTT LDOB:1960 (64 yo F)Acc No.[id number]:03/26/2024 Patient: Hayley LUCIO Provider: Jorge Reyes :1960 A ge:63 Y S ex:Female Date:03/26/2024 Address:[address] [place] [address] Pcp:Adama Zuñiga DO Subjective: * Chief Complaints: [...] Cholecystectomy, 2015, Hip replacement, right, performed at [facility] by Dr. Magana, 10/10/23. * [...] Electronic signature of Renny Reyes MD on 05/21/2025 at 10:51 AM CDT Sign off status: Pending * Provider: Jorge Reyes Date: 0 03/26/2024 Generated for Renan Teresa on: 0 05/21/2025 10:51 AM CDT History and Physical Notes * [...] surgery; history of massage therapy Medication history: [place] 5/325 1-2, Q8H ; Flexeril 10 mg [...]
[2025-05-21] VITALS (9 sets, daily range): BP systolic 115–186; BP diastolic 85–106; PULSE 62–74; RESP 16–18; TEMP 36.6; O2SAT 93–98; BMI 33.3
--- NOTE | 2025-05-21 10:50 | ECG_ITS ---
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
--- OUTSIDE RECORDS SUMMARY | 2025-05-21 10:51 | XMS_ITS | Patient Health Record ---
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 central or peripheral in origin. The patient understands that 80% relief is received for a short time in order to be considered successful. If patient has two positive response diagnostic medial branch blocks, then rhizotomy will be considered. If the diagnostic medial branch blocks do not help at least 80%, then patient understands to not proceed with rhizotomy. The procedure and risks were discussed with the patient including but not limited to infection, bleeding, neurological complications, side effects from medications, no change in pain, worsening of pain, or even . We also discussed conservative options, surgical options, and medical management with patient as well. The patient indicates understanding and wishes to proceed with the recommended treatment approach. The patient was given written information about the procedure and all questions were answered. 09/30/2024 Arthrodesis status (ICD-10 - Z98.1) 02/26/2025 Sacroiliac inflammation (ICD-10 - M46.1) 02/26/2025 Lumbar post-laminectomy syndrome (ICD-10 - M96.1) 01/07/2025 Sacroiliac inflammation (ICD-10 - M46.1) 01/14/2025 Lumbar stenosis (ICD-10 - M48.061) 11/19/2024 Lumbar post-laminectomy syndrome (ICD-10 - M96.1) 11/19/2024 Abnormality of gait and mobility (ICD-10 - R26.9) 01/07/2025 Lumbar post-laminectomy syndrome (ICD-10 - M96.1) 02/26/2025 Abnormality of gait and mobility (ICD-10 - R26.9) 02/26/2025 Lumbosacral spondylosis (ICD-10 - M47.817) RECOMMEND FACET MEDIAL BRANCH RHIZOTOMY, levels S1-3 Facet medial branch nerve rhizotomy is being recommended. The patient has pain of well-documented facet joint origin as evidenced by successful response to two separate sets of diagnostic medial branch nerve blocks at S1-3 levels on 01/27/2025 and 02/10/2025 with 80% relief for approximately the duration of the asthetic, as criterion standard, with ability to perform previously painful movement without deterioration of the relief, as mentioned in previous records. We will now proceed with facet rhizotomy using continuous radiofrequency denervation at a temperature of 90 degrees Celsius for 60 seconds. The procedure and risks were discussed with the patient including but not limited to infection, bleeding, neurological complications, side effects from medications, no change in pain, worsening of pain, or even . We also discussed conservative options, surgical options, and medical management with patient as well. The patient indicates understanding and wishes to proceed with the recommended treatment approach. The patient was given written information about the procedure and all questions were answered. 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 instructed to f/u with PCP to monitor for skin integrity/possibil ty of necrosis of the bite area. 09/02/[address] and NCS/EMG and f/u after this has been done. testing will be done in . 09/30/2024 Other plan to f/u on an as needed basis. refer to PM. continue f/u with pcp. 11/19/2024 Other Deep Mcwilliams am scribing for Dr. Pelon Street. I, Dr. Pelon Street, personally performed the services described in this documentation , as scribed by Deep Cerda, and it is both accurate and complete. 01/07/2025 Other Deep Mcwilliams am scribing for Dr. Pelon Street. I, Dr. Pelon Street, personally performed the services described in this documentation, as scribed by Deep Cerda, and it is both accurate and complete. Plan Of Treatment Pending Test Test Name Order Date Prothrombin Time 32411 03/05/2024 Prothrombin Time 31774 03/25/2024 ABORh 24799, 35679 03/05/2024 ABORh 30756, 04278 03/25/2024 Antibody Screen 07394 03/25/2024 Antibody Screen 53106 03/05/2024 Basic Metabolic Panel (BMP) 16528 2023 Basic Metabolic Panel (BMP) 91836 2023 Basic Metabolic Panel (BMP) 10338 2023 CBC w\ Auto Diff 92853 04/03/2024 CBC w\ Auto Diff 53166 03/25/2024 CBC w\ Auto Diff 40201 03/05/2024 Partial Thromboplastin Time 40154 2023 Partial Thromboplastin Time 70807 2023 Chest PA/Lat-84882 03/05/2024 Chest PA/Lat-31815 03/25/2024 CT L-Spine w/o Contrast incl Recon-93584 09/15/2024 CT L-Spine w/o Contrast incl Recon-68314 09/02/2024 Lumbosacral Spine AP/Lat-82500 XR Outside CD 08/14/2023 Electrocardiogram 12 Lead Tracing-06234 03/05/2024 BB ABORH-01441,27127 03/25/2024 zzzFluoroscopy 04/02/2024 zzzMRI Outside CD 08/09/2023 Schedule Confirmation 09/15/2024 Schedule Confirmation 09/15/2024 Schedule Confirmation 09/15/2024 Schedule Confirmation 09/15/2024 IH Lumbosacral Spine AP/Lat - 07286 06/0 02/2024 IH Lumbosacral Spine AP/Lat - 44243 06/0 02/2024 Future Test Test Name Order Date CBC w\ Auto Diff 79563 04/16/2024 Sedimentation Rate 31902 04/16/2024 CRP 82910 04/16/2024 Next Appt Details Provider Name:Frida morris, 06/04/2025 09:40:00 AM, [address] [place], [address], Insurance Providers Payer Name Payer Address Payer Phone Subscriber Number Group Number Insured Name Patient Relationship to Insured Coverage Start Date Coverage End Date [place] [address] [address] [place] [address] [id number] SARATH CHUN Self - patient is the insured [employer] [facility] [address] [place] [address] [id number] SARATH CHUN Self - patient is the insured Medical (General) History Medical History History ICD Code Depression Back Pain acid reflux asthma insomnia COPD Headache, migraine anxiety chronic cough Surgical History Surgery Date(Month/Year) lumbar fusion 03/2024 hip decompression gall bladder removal hysterectomy appendectomy eye
--- OUTSIDE RECORDS SUMMARY | 2025-05-21 10:51 | XMS_ITS | Clinical Summary ---
Author Organization [facility] Administrative Offices Address [address] [place] [address] Care Team Providers Care Patient Account Representative Name Role Phone Adama Zuñiga Primary Care Provide r Allergies Active Allergy Reactions Criticality Noted Date Comments Chlorzoxazone Hives High 08/10/2021 Sulfa (Sulfonamide Antibiotics) Hives High 07/29 Medications budesonide-form oteroL (SYMBICORT) 160-4.5 mcg/actuation HFA Aerosol Inhaler Take 2 Puffs by inhalation 2 times daily. Active albuterol sulfate 90 mcg/Actuation inhaler Take 2 Puffs by inhalation every 6 hours as needed for Shortness of Breath. Active omeprazole (PriLOSEC) 20 mg Capsule, Delayed Release(E.C.) Take 20 mg by mouth daily. Active cholecalciferol , Vitamin D3, 125 mcg (5,000 unit) Capsule Take 10,000 Units by mouth daily. Active cyclobenzaprine (FLEXERIL) 10 mg tablet Take 10 mg by mouth 3 times daily as needed for Spasm. Active HYDROcodone-ibu profen (VICOPROFEN) 7.5-200 mg Tablet Take 1 Tablet by mouth 2 times daily as needed for Pain, Moderate. 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 Pulse 94 09/14/2021 12:20 PM SOW FARM 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 Temperature - - Respiratory Rate - - Oxygen Saturation 97% 09/14/2021 12:20 PM SOW FARM MANAGER Inhaled Oxygen Concentration - - Weight 71.7 kg (158 lb) 09/14/2021 12:20 PM 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 MANAGER Height 157.5 cm (5' 2 ) 09/14/2021 12:20 PM SOW FARM MANAGER Body Mass Index 28.9 09/14/2021 12:20 PM SOW FARM MANAGER Plan of Treatment Health Maintenance Due Date Last Done Comments DTAP/TDAP/TD VACCINES (1 - Tdap) 1977 PNEUMOCOCCAL VACCINE 50+ YEARS (1 of 2 - PCV) 12/05/18 78 BREAST CANCER SCREENING 1998 COLORECTAL SCREENING 2003 Colorectal Cancer Screening 2003 FIT-DNA Q 3 years 2003 FIT/FOBT Q 1 year 2003 Flex Sig/CT Colonography Q 5 years 2003 ZOSTER VACCINE (1 of 2) 2008 OSTEOPOROSIS SCREENING 2023 INFLUENZA VACCINE (#1) 2025 RSV VACCINE (60+ or ) (1 - 1-dose 75+ series) 2033 Insurance [id number] [place] [address] [employer] [id number] [id number] Care Teams Patient Account Representative Relationship Specialty Start Date End Date Adama Zuñiga DO [address] [address] PCP - General Internal Medicine 08/19/21
--- OUTSIDE RECORDS SUMMARY | 2025-05-21 10:52 | XMS_ITS | Patient Health Record ---
Author Organization [facility] Address [address] [place], [place] [address] Care Team Providers Care Pin Cleaner Name Role Phone Zara Adama CARBALLO Primary Care Provider Shabnam Reyes MD, Nitin Unavailable [phone] Allergies Allergen (clinical drug ingredient) Drug/Non Drug Allergy documented on EMR Reaction Allergy Type Onset Date Status sulfa drugs (uncoded) Unknown Allergy Active Parafon Forte DSC Unknown Drug Allergy Active Reason For Referral No Information Medications Medication SIG (Take, Route, Frequency, Duration) Notes Start Date End Date Status oxyCODONE 20 mg 1/2 - 1 tab orally Q 4-6H prn pain (max 3/day; hold within 4H of planned sleep) Active Symbicort 160 mcg-4.5 mcg/inh 2 puffs inhaled 2 times a day Active Albuterol (Eqv-ProAir HFA) 90 mcg/inh 2 puffs inhaled every 6 hours Active oxyCODONE 20 mg 1/2 - 1 tab orally Q 4-6H prn pain (max 3/day; hold within 4H of planned sleep) Active sucralfate 1 g 1 tab(s) orally 4 ti mes a day (before meals and at bedtime) for 30 day(s) 01/16/2024 Active Motrin IB 200 mg 1 tab orally every 6 hours, as needed Active omeprazole 20 mg 1 cap orally once a day Active DULoxetine 30 mg 1 cap(s) orally once a day Active meloxicam 15 mg 1 tab orally once a day Active amLODIPine 5 mg 1 tab(s) orally once a day for 30 day(s) Active Centrum MultiGummies Women Active Vitamin D3 2000 intl units as directed orally Active alendronate 70 mg 1 tab(s) orally once a week for 28 day(s) Active Acetaminophen-Oxycodone Hydrochloride 325 mg-10 mg 1 tab po orally Q4-6H prn pain (max 2/day; hold within 4H of planned sleep) for 23 days 11/30/2022 Active Social History Tobacco Use: Social History Observation Description Date Details (start date - stop date) Former Smoker NA - 08/10/2023 alcohol Question Answer Notes Did you have a drink containing alcohol in the p ast year? No Points 0 Interpretation Negative Tobacco use: Question Answer Notes : former smoker When did you stop smoking? 08/10/2023 Problems Problem Type SNOMED Code ICD Code Onset Dates Problem Status W/U Status Risk Notes Problem Solitary sacroiliitis (446993779) Sacroiliitis, not elsewhere classified (M46.1) Active confirmed Problem Low back pain (615002824) Low back pain (M54.5) Active confirmed Problem Lumbosacral spondylosis without myelopathy (61735029) Spondylosis without myelopathy or radiculopathy, lumbar region (M47.816) Active confirmed Problem High risk drug monitoring status (106942061) half-way (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 (Z79.891) Active confirmed Problem Anxiety disorder (123587918) Other specified anxiety disorders (F41.8) Active confirmed Problem Sleep disorder (55242190) Other sleep disorders (G47.8) Active confirmed Problem Chronic pain (53963423) Other chronic pain (G89.29) Active confirmed Problem Acquired spondylolisthesis (295478268) Spondylolisthesis , lumbosacral region (M43.17) Active confirmed Problem Radiculopathy due to lumbar intervertebral disc disorder (346490706083453) Intervertebral disc disorders with radiculopathy, lumbar region (M51.16) Active confirmed Problem Long-term current use of drug therapy (788878476) Other residential (current) drug therapy (Z79.899) Active confirmed Problem Muscle pain (35261872) Myalgia, other site (M79.18) Active confirmed Problem Pain in lumbar spine (768888320) Vertebrogenic low back pain (M54.51) Active confirmed Plan Of Treatment No Information Insurance Providers Payer Name Payer Address Payer Phone Subscriber Number Group Number Insured Name Patient Relationship to Insured Coverage Start Date Coverage End Date [employer] Part B Claims Department [address] [address] [place] [phone] [id number] Hayley Chun Self - patient is the insured [facility] [employer] [address] [place] [phone] [id number] Hayley Chun Self - patient is the insured Medical (General) History Medical History History ICD Code Chronic pain Low back pain Lumbar spondylosis, disc disease and spo ndylolisthesis Spinal stenosis, lumbar, as per remote C T report Sciatica, bilateral Sacroiliitis Piriformis syndrome Hip pain, right Greater trochanteric bursitis, bilateral Knee pain, left Joint pain Osteoarthritis Leg weakness Asthma Migraine syndrome Allergic rhinitis Chronic obstructive pulmonary disease Hypersomnia Eczema Depression and anxiety Osteoporosis Gastroesophageal reflux disease Blindness, left eye Heart disease Urinary incontinence Skin lesion disorder that patient thinks might be lupus Sleep disorder with snoring and some hyp ersomnia Surgical History Surgery Date(Month/Year) Left eye surgery, 1963 Appendectomy, 1967 Tubal ligation, 1998 Hysterectomy, 2004 Cholecystectomy, 2015 Hip replacement, right, performed at [facility] by Dr. Magana, 10/10/23
--- NOTE | 2025-05-21 10:56 | XR_ITS ---
WS: [id number] Portable AP semiupright chest, 05/21/2025 Clinical Data: hypertension Comparison: Portable chest, 10/24/2024 Findings: No nodules, masses or effusions are seen. The heart is normal. The pulmonary vascularity is not increased. No pneumonia or pneumothorax is seen. The diaphragms are flattened. There are monitor leads on the chest wall. 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 XR/XR chest 1V portable 24299 Impression: Hyperinflation.
--- NOTE | 2025-05-21 11:17 | ED_ITS ---
HPI - General Adult 2 General: Chief complaint: General Medical Stated complaint: High BP Time Seen by Provider: 05/21/25 10:55 History of Present Illness: 64-year-old female with a history of rhe umatoid arthritis who was recently started on leflunomide, fibromyalgia, migraines and COPD who presents to the emergency room with hypertension. She did talk to her ton container filler and they think this may be secondary to her medication and so she stopped that this morning but her blood pressure still elevated. No headache. No chest pain. No altered mental status. No focal motor deficits. No abdominal pain. No nausea or vomiting. Related Data Home Medications ?Medication ?Instructions ?Recorded ?Confirmed cholecalciferol (vitamin D3) 50 50 mcg PO DAILY 05/21/25 mcg (2,000 unit) tablet (Vitamin D3) Previous Rx's ?Medication ?Instructions ?Recorded clobetasol 0.05 % topical cream 1 applic topical DAILY PRN skin 07/14/24 irritation #30 grams nebulizer #1 ea 09/16/24 quad tip cane #1 ea 10/10/24 diclofenac sodium 1 % topical gel 4 g topical QID #100 grams 01/06/25 (Voltaren Arthritis Pain) hydrocodone 5 mg-acetaminophen 325 1 tab PO .q 4-6 PRN pain #20 tabs 02/23/25 mg tablet albuterol sulfate 2.5 mg/3 mL 2.5 mg (3 mL) inhalation QID PRN 02/26/25 (0.083 %) solution for nebulization shortness of breat h or wheezing #75 mL diclofenac sodium 75 mg See Rx Instructions .Route 0 03/25/25 tablet,delayed release .COMPLEX #60 tabs pantoprazole 40 mg tablet,delayed 40 mg PO DAILY #90 t abs 04/22/25 release ropinirole 2 mg tablet See Rx Instructions .Route 0 04/23/25 .COMPLEX #90 tabs duloxetine 60 mg capsule,delayed See Rx Instructions . Route 04/28/25 release .COMPLEX #90 caps budesonide-formoterol HFA 160 2 puff inhalation Q12H # 10.2 grams 05/07/25 mcg-4.5 mcg/actuation aerosol inhaler (Symbicort) albuterol sulfate 90 mcg/actuation See Rx Instructions .Route 05/08/25 aerosol inhaler .COMPLEX #8.5 ea leflunomide 20 mg tablet 20 mg PO DAILY #30 tabs 04/28 03/22 prednisone 20 mg tablet See Rx Instructions PO .COMP [place] 05/12/25 PRN joint pain flare #30 tabs pregabalin 100 mg capsule (Lyrica) 100 mg PO BID #180 caps 05/12/25 clonidine HCl 0.1 mg tablet 0.1 mg PO DAILY #20 tabs 0 05/21/25 Allergies Allergy/AdvReac Type Severity Reaction Status Date / Time montelukast (From Singulair) Allergy Severe tongue Verified 05/12/25 10:59 swelling chlorzoxazone (From Parafon Allergy ALGY-Rash Verified 05/12/25 10:59 Forte DSC) Sulfa (Sulfonamide Allergy ALGY-Hives Verified 05/12/25 10:59 Antibiotics) Review of Systems 2 Narrative: Constitutional symptoms: Negative except as documented in HPI. Skin symptoms: Negative except as documented in HPI. Eye symptoms: Negative except as documented in HPI. ENMT symptoms: Negative except as documented in HPI. Respiratory symptoms: Negative except as documented in HPI. Cardiovascular symptoms: Negative except as documented in HPI. Gastrointestinal symptoms: Negative except as documented in HPI. Genitourinary symptoms: Negative except as documented in HPI. Musculoskeletal symptoms: Negative except as documented in HPI. Neurologic symptoms: Negative except as documented in HPI. Psychiatric symptoms: Negative except as documented in HPI. Endocrine symptoms: Negative except as documented in HPI. PFSH ED 2 PFSH: Medical History (Updated 05/21/25 @ 14:35 by Anaya Lord MD) Immunization counseling High risk medication use Seronegative rheumatoid arthritis of both hands Fibromyalgia Polyarthralgia Hypertension Tubular adenoma of colon Tobacco use High risk for hip fracture Osteopenia GERD (gastroesophageal reflux disease) Skin rash Degenerative joint disease (DJD) of lumbar spine Osteoarthritis, generalized Migraines COPD (chronic obstructive pulmonary disease) Asthma Joint pain Surgical History History of hip surgery right Hx of eye surgery History of hysterectomy with bilateral oophorectomy History of appendectomy History of cholecystectomy Family History Mother Diabetes Cancer Dementia Father Diabetes Cancer Brother Diabetes Denies family history of CAD (coronary artery disease) Clotting disorder Hyperlipidemia Psychiatric illness Chronic kidney disease (CKD) Suicide Anesthesia complication Bleeding disorder Family history of premature coronary artery disease Lung disease Hypertension Stroke Social History Smoking and tobacco/nicotine status: current some day tobacco/nicotine user cigarettes Packs smoked per day: 1 Years cigarettes smoked: 43 Alcohol intake: never Substance/Drug Use: never Lives independently: Yes Household members: spouse Marital status: Current occupational status: employed 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 Skin: Warm, dry. Head: Normocephalic, atraumatic. Neck: Supple, trachea midline. Eye: Extraocular movements are intact. Ears, nose, mouth and throat: mucosa moist. Cardiovascular: Regular, Normal peripheral perfusion. Respiratory: Lungs are clear to auscultation, respirations are non-labored, breath sounds are equal, Symmetrical chest wall expansion. Gastrointestinal: Soft, Nontender, Non distended Musculoskeletal: Normal ROM, no deformity. Neurological: Alert and oriented, No focal neurological deficit observed. Psychiatric: Cooperative, appropriate mood & affect. Course 2 Vital Signs: Vital signs: Vital Signs Temperature 97.8 F 05/21/25 10:45 Pulse Rate 69 05/21/25 14:55 Respiratory Rate 16 05/21/25 14:13 Blood Pressure 120/85 05/21/25 14:55 Pulse Oximetry 98 05/21/25 14:55 Oxygen Delivery Me thod Room Air 05/21/25 14:13 [facility] - General Adult Medical Decision Making Medical decision making: Differential diagnosis including but not limited to and based on the above HPI, review of systems and physical exam: Patient presents with hypertension: Essential hypertension. Stroke. acute coronary syndrome. kidney failure. congestive heart failure. anxiety. Orders placed to evaluate differential diagnosis based on the above differential, HPI and physical exam EKG: Time 1052. Rate 69. Normal sinus rhythm, No ST-T changes, no ectopy, normal MD & QRS intervals, This was reviewed and interpreted by myself the ER physician at 1057 Repeat EKG: Time 1352. Rate 68. Normal sinus rhythm, No ST-T changes, no ectopy, normal MD & QRS intervals, This was reviewed and interpreted by myself the ER physician at 1358 Chest x-ray: Hyperinflation. No acute process. No infiltrate. No pneumothorax. This was reviewed and interpreted by myself the emergency room physician. I also reviewed the radiology report. Lab Review: Laboratory results were reviewed and interpreted by myself the emergency room physician. No leukocytosis. No anemia. No renal failure. Serial cardiac markers are negative. Urinalysis is negative for infection. I reviewed the patient's medical record. Reexamination: Patient remained stable. No increased work of breathing. No altered mental status. No focal motor deficits. Blood pressure down to 120/85 after clonidine. Assessment and plan: Accelerated hypertension Medication reaction ?Clonidine with improvement in the emergency room. - Discharged home - Discussed plan with patient. Answered any questions. - Evaluation and treatment of this problem were appropriate in the emergency setting. Lab Data 05/21/25 12:00 05/21/25 12:00 Radiology Impressions Chest X-Ray 05/21/25 10:56 Impression: Hyperinflation. Laboratory Results WBC 4.64 10^3/uL (3.29-11.43) 05/21/25 12:00 RBC 4.84 10^6/uL (3.85-5.65) 05/21/25 12:00 Hgb 13.00 g/dL (11.27-16.99) 05/21/25 12:00 Hct 40.1 % (36-47) 05/21/25 12:00 MCV 82.9 fl (85-98) L 05/21/25 12:00 MCH 26.9 pg (27-33) L 05/21/25 12:00 MCHC 32.4 g/dL (30-55) 05/21/25 12:00 RDW 14.2 % (12.1-15.1) 05/21/25 12:00 Plt Count 228 10^3/cmm (157-399) 05/21/25 12:00 MPV 10.5 fL (7.4-10.4) H 05/21/25 12:00 Neut % (Auto) 46.7 % 05/21/25 12:00 Lymph % (Auto) 37.7 % 05/21/25 12:00 [place] % (Auto) 9.3 % 05/21/25 12:00 Eos % (Auto) 5.0 % 05/21/25 12:00 Baso % (Auto) 1.1 % 05/21/25 12:00 Neut # (Auto) 2.17 10^3/uL (1.8-7.7) 05/21/25 12:00 Lymph # (Auto) 1.8 10^3/uL (0.8-4.8) 05/21/25 12:00 [place] # (Auto) 0.4 10^3/uL (0.2-0.9) 05/21/25 12:00 Eos # (Auto) 0.2 10^3/uL (0.0-0.8) 05/21/25 12:00 Baso # (Auto) 0.1 10^3/uL (0.0-0.1) 05/21/25 12:00 Nucleated RBC % (auto) 0 % 05/21/25 12:00 Nucleated RBCs # 0.0 /100WBC 05/21/25 12:00 Sodium 141 mmol/L (136-145) 05/21/25 12:00 Potassium 4.5 mmol/L (3.5-5.1) 05/21/25 12:00 Chloride 106 mmol/L (98-107) 05/21/25 12:00 Carbon Dioxide 25 mmol/L (22-29) 05/21/25 12:00 Anion Gap 14.5 (5-19) 05/21/25 12:00 BUN 11 mg/dL (8-23) 05/21/25 12:00 Creatinine 0.8 mg/dL (0.5-0.9) 05/21/25 12:00 GFR Calculation 71.8 mL/min (90-130) L 05/21/25 12:00 Glucose 97 mg/dL (65-115) 05/21/25 12:00 Calculated Osmolality 291 mOsm/kg (285-295) 05/21/25 12:00 Calcium 8.7 mg/dL (8.5-10.5) 05/21/25 12:00 Total Bilirubin 0.6 mg/dL (0.15-1.2) 05/21/25 12:00 AST 24 U/L (0-32) 05/21/25 12:00 ALT 22 U/L (0-33) 05/21/25 12:00 Alkaline Phosphatase 108 U/L (35-105) H 05/21/25 12:00 Troponin T Baseline 13 ng/L (0-10) H 05/21/25 12:00 Troponin T 120 Minute 14.87 ng/L (0-10) H 05/21/25 13:35 Delta Troponin T 1.87 ABS# (0-10) 05/21/25 13:35 Total Protein 6.1 g/dL (6.6-8.7) L 05/21/25 12:00 Albumin 4.0 g/dL (3.5-5.2) 05/21/25 12:00 Globulin 2.1 g/dL (1.3-4.6) 05/21/25 12:00 Urine Color Yellow (Yellow) 05/21/25 11:38 Urine Appearance Cloudy (CLEAR) A 05/21/25 11:38 Urine pH 5.5 (5-7) 05/21/25 11:38 Ur Specific [place] 1.017 (1.005-1.030) 05/21/25 11:38 Urine Protein Negative (Negative) 05/21/25 11:38 Urine Glucose (UA) Negative (Normal) 05/21/25 11:38 Urine Ketones Negative (Negative) 05/21/25 11:38 Urine Blood Negative (Negative) 05/21/25 11:38 Urine Nitrate Negative (Negative) 05/21/25 11:38 Urine Bilirubin Negative (Negative) 05/21/25 11:38 Urine Urobilinogen 1.0 mg/dL (Negative) 05/21/25 11:38 Ur Leukocyte Esterase Trace (Negative) A 05/21/25 11:38 Urine RBC 0-2 /hpf (0-2) 05/21/25 11:38 Urine WBC 0-5 /hpf (0-5) 05/21/25 11:38 Ur Squamous Epith Cells 0-5 /hpf (0-5) 05/21/25 11:38 Urine Bacteria None seen /hpf (NONE) 05/21/25 11:38 Hyaline Casts 0-4 /lpf H 05/21/25 11:38 All radiology interpretation(s) finalized by discharge Discharge Plan Discharge Patient Disposition: Home Clinical Impression: Hypertension Condition: Stable Prescriptions: New clonidine HCl 0.1 mg tablet 0.1 mg PO DAILY Qty: 20 0RF Rx Instructions: For Systolic >185 diastolic >100. If you are needing this more than once a day you need to follow with your primary care provider No Action leflunomide 20 mg tablet 20 mg PO DAILY Qty: 30 4RF prednisone 20 mg tablet See Rx Instructions PO .COMPLEX PRN (Reason: joint pain flare) Qty: 30 1RF Rx Instructions: take 1 or 2 tab daily for up to 7 days as needed for arthritis flare PO PRN; pregabalin [Lyrica] 100 mg capsule 100 mg PO BID Qty: 180 1RF pantoprazole 40 mg tablet,delayed release (DR/EC) 40 mg PO DAILY Qty: 90 0RF clobetasol 0.05 % cream 1 applic topical DAILY PRN (Reason: skin irritation) Qty: 30 0RF (DME) nebulizer See Rx Instructions .Route .MEDSUPPLY Qty: 1 0RF Rx Instructions: As directed (DME) quad tip cane See Rx Instructions .Route .MEDSUPPLY Qty: 1 0RF Rx Instructions: As directed diclofenac sodium [Voltaren Arthritis Pain] 1 % gel 4 g topical QID Qty: 100 0RF Rx Instructions: apply to single knee, ankle, foot; for foot includes sole/toes/top of foot albuterol sulfate 2.5 mg /3 mL (0.083 %) solution for nebulization 2.5 mg inhalation QID PRN (Reason: shortness of breath or wheezing) Qty: 75 0RF diclofenac sodium 75 mg tablet,delayed release (DR/EC) See Rx Instructions .ROUTE .COMPLEX Qty: 60 2RF Dose Instruction: TAKE 1 TABLET BY MOUTH TWICE A DAY Rx Instructions: TAKE 1 TABLET BY MOUTH TWICE A DAY ropinirole 2 mg tablet See Rx Instructions .ROUTE .COMPLEX Qty: 90 0RF Dose Instruction: TAKE ONE TABLET EVERY EVENING Rx Instructions: TAKE ONE TABLET EVERY EVENING duloxetine 60 mg capsule,delayed release(DR/EC) See Rx Instructions .ROUTE .COMPLEX Qty: 90 0RF Dose Instruction: TAKE 1 CAPSULE BY MOUTH EVERY MORNING Rx Instructions: TAKE 1 CAPSULE BY MOUTH EVERY MORNING budesonide-formoterol [Symbicort] 160-4.5 mcg/actuation HFA aerosol inhaler 2 puff inhalation Q12H Qty: 10.2 0RF albuterol sulfate 90 mcg/actuation HFA aerosol inhaler See Rx Instructions .ROUTE .COMPLEX Qty: 8.5 2RF Dose Instruction: INHALE 2 PUFFS BY MOUTH 4 TIMES DAILY NEEDED FOR SHORTNESS OF BREATH Rx Instructions: INHALE 2 PUFFS BY MOUTH 4 TIMES DAILY NEEDED FOR SHORTNESS OF BREATH hydrocodone-acetaminophen 5-325 mg tablet 1 tab PO .q 4-6 PRN (Reason: pain) Qty: 20 0RF cholecalciferol (vitamin D3) [Vitamin D3] 50 mcg (2,000 unit) Tablet 50 mcg PO DAILY Discharge Orders: Discharge ED (Routine); Ordered 05/21/25 Ordered By: Anaya Lord Referrals: Tarah Aquino MD [Primary Care Provider, Family Practice] Discharge Diet: Usual diet Discharge Activity: Resume usual activity Patient Instructions: Hypertension (ED), Opioid Safety, Pain Management, Patient Portal & Leticia Instructions Activity Restrictions/Additional Instructions: Thank you for choosing [facility] for your healthcare needs today. You have been screened and evaluated and felt safe for discharge. Health conditions do change or evolve sometimes and as such it is important that you follow up with your Primary Doctor to be re checked, 3-5 days is a general good time frame for follow up. You are always welcome to return to the ED for re assessment if your symptoms are worsening or you have new concerns Print Language: Icelandic Coding Level of Care Code ED Professor Of Nursing for Nabila Westbrook
[2025-05-21 11:53] LABS: Glucose Urine UA Negative (Normal); Nitrate Urine Negative (Negative); Specific Gravity, Urine 1.017 (1.005-1.030)
[2025-05-21 12:06] LABS: Hematocrit 40.1 % (36-47); Hemoglobin 13.00 g/dL (11.27-16.99); Mean Corpuscular HGB Conc 32.4 g/dL (30-55); Mean Corpuscular Hemoglobin 26.9 pg (27-33); Mean Corpuscular Volume 82.9 fl (85-98); Nucleated Red Blood Cells % 0 %; Platelet Count 228 10^3/cmm (157-399); Red Blood Count 4.84 10^6/uL (3.85-5.65); White Blood Count 4.64 10^3/uL (3.29-11.43)
[2025-05-21 12:28] LABS: Alanine Aminotransferase 22 U/L (0-33); Albumin Level 4.0 g/dL (3.5-5.2); Alkaline Phosphatase 108 U/L (35-105); Anion Gap 14.5 (5-19); Aspartate Amino Transferase 24 U/L (0-32); Blood Urea Nitrogen 11 mg/dL (8-23); Calcium 8.7 mg/dL (8.5-10.5); Carbon Dioxide 25 mmol/L (22-29); Chloride 106 mmol/L (98-107); Creatinine Clr Calc Pharmacy 68.8860; Globulin 2.1 g/dL (1.3-4.6); Glucose 97 mg/dL (65-115); Osmolality Calculated 291 mOsm/kg (285-295); Potassium 4.5 mmol/L (3.5-5.1); Sodium 141 mmol/L (136-145); Total Protein 6.1 g/dL (6.6-8.7)
[2025-05-21 12:31] LABS: Troponin(5th) Baseline 13 ng/L (0-10)
--- NOTE | 2025-05-21 13:52 | ECG_ITS ---
[facility] Test Date: 2025-05-21 Pat Name: Hayley Chun Department: Room: Gender: Female Score Caller: : [id number] Requested By: Anaya Hathaway Order Number: [id number] Pagan MD: Michael Treadwell M.D. Measurements Intervals [place] Rate: 68 P: 80 OK: 144 QRS: 68 QRSD: 80 T: 70 QT: 414 QTc: 443 Interpretive Statements SINUS RHYTHM Compared to ECG 05/21/2025 10:52:59 No significant changes Electronically Signed On 05-23-2025 08:54:34 CDT by Michael Treadwell M.D. [email or web address]
[2025-05-21 14:26] LABS: Troponin 5 2HR 14.87 ng/L (0-10); Troponin 5 2HR Delta 1.87 ABS# (0-10)
== END 2025-05-21 14:56 | disposition home or self-care (01) ==
PROVIDERS: Emergency Provider Emergency Medicine; PCP Family Medicine
DX: I10 Essential (primary) hypertension (principal); F17.210 Nicotine dependence, cigarettes, uncomplicated; J44.9 Chronic obstructive pulmonary disease, unspecified
CPT/HCPCS: 36415; 71045; 80053; 81001; 84484; 85025; 93005; 99285; J9999

== ENCOUNTER 2025-06-08 15:37 | Outpatient (CLI) | payer MEDICARE, MEDICAID, SELFPAY ==
--- NOTE | 2025-06-08 15:47 | MR_ITS ---
WS: [id number] MRI CERVICAL SPINE NONCONTRAST HISTORY: CERVICAL SPONDYLOSIS, CERVICAL RADICULOPATHY COMPARISON: None available. Technique: Multiplanar, multisequence noncontrast imaging of the cervical spine. Marked increase in upper thoracic kyphosis. Head is held in a forward position. Prior slight straightening of the normal cervical lordosis. C5 anterolisthesis by 2 mm. No fractures. Facet joints are normally aligned. Signal within the cervical cord is normal. Visualized posterior fossa is unremarkable. Craniocervical junction, C1 and C2 relationship, odontoid process and soft tissues are normal. C2-C3: Normal. C3-C4: Normal. C4-C5: Normal. C5-C6: Mild annular disc bulging and osteophytic ridging. Bilateral disc osteophyte complexes, greater on the LEFT. Moderate LEFT and mild RIGHT foraminal and mild central stenosis. C6-C7: No stenosis. C7-T1: Normal. Paraspinal soft tissue are normal. MR/MR cervical spin wo con* [id number] IMPRESSION: 1. No acute cervical spine fracture. 2. Normal signal within the cord. 3. Degenerative disc disease at C5-6. Bilateral foraminal disc osteophyte comp lexes at C5-6 resulting in moderate LEFT and mild RIGHT foraminal stenosis and mild central stenosis. 4. Increase in kyphosis of the upper thoracic spine.
== END 2025-06-08 15:38 | disposition home or self-care (01) ==
LOC: RAD 15:38
PROVIDERS: PCP Family Medicine; Visit Provider Physical Medicine & Rehabilitation
DX: M47.22 Other spondylosis with radiculopathy, cervical region (principal); M50.122 Cervical disc disorder at C5-C6 level with radiculopathy; M48.02 Spinal stenosis, cervical region; M40.204 Unspecified kyphosis, thoracic region; M25.78 Osteophyte, vertebrae
CPT/HCPCS: 72141

== ENCOUNTER 2025-06-15 11:41 | Emergency (ER) | payer MEDICARE, MEDICAID, SELFPAY ==
--- OUTSIDE RECORDS SUMMARY | 2024-03-26 03:30 | XMS_ITS ---
Author Organization [facility] Address [address] [place], [place] [id number] Care Team Providers Care Taker Off Hemp Fiber Name Role Phone Adama Zuñiga DO Primary Care Provider Shabnam Reyes MD, Nitin Unavailable [phone] Allergies Allergen (clinical drug ingredient) Drug/Non Drug [...] Location Date Provider Diagnosis [facility] [address] [place], [place] [phone] 03/26/2024 Nitin Reyes Vertebrogenic low ba ck [...] * Hayley LOTT LDOB:1960 (64 yo F)Acc No.[id number]:03/26/2024 Patient: Hayley LUCIO Provider: Jorge Reyes :1960 A ge:63 Y S ex:Female Date:03/26/2024 Address:[address] [place], [place] [id number] Pcp:Adama Zuñiga DO Subjective: * Chief Complaints: * 1 [...] Cholecystectomy, 2015, Hip replacement, right, performed at [facility] by Dr. Magana, 10/10/23. * Hospitalization/Major Diagno [...] Electronic signature of Renny Reyes MD on 06/15/2025 at 11:47 AM CDT Sign off status: Pending * Provider: Jorge Reyes Date: 0 03/26/2024 Generated for Renan Teresa on: 0 06/15/2025 11:47 AM CDT History and Physical Notes * [...] surgery; history of massage therapy Medication history: [place] 5/325 1-2, Q8H ; Flexeril 10 mg [...]
[2025-06-15] VITALS (9 sets, daily range): BP systolic 97–130; BP diastolic 66–81; PULSE 66–83; RESP 16–20; TEMP 36.8; O2SAT 93–96; BMI 33.6
--- OUTSIDE RECORDS SUMMARY | 2025-06-15 11:47 | XMS_ITS | Patient Health Record ---
Author Organization [facility] Address [address] [place], [place] [id number] Care Team Providers Care Compressor Mechanic Name Role Phone Zara Adama CARBALLO Primary Care Provider Shabnam Reyes MD, Nitin Unavailable [phone] Allergies Allergen (clinical drug ingredient) Drug/Non Drug [...] once a week; Duration: 28 day(s) Active Acetaminophen-Oxycodone Hydrochloride 325 mg-10 mg 1 tab po orally Q4-6H prn pain (max 2/day; hold within 4H of planned sleep); Duration: 23 days 11/30/2022 Active Social History Tobacco [...] W/U Status Risk Notes Problem Solitary sacroiliitis (653927700) Sacroiliitis, not elsewhere classified (M46.1) Active confirmed Problem Low back pain (M54.5) Active confirmed Problem Lumbosacral spondylosis without myelopathy (67188893) Spondylosis without myelopathy or radiculopathy, lumbar region (M47.816) Active confirmed Problem High risk drug monitoring status (290471799) 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 (Z79.891) Active confirmed Problem Anxiety disorder (792327557) Other specified anxiety disorders (F41.8) Active confirmed Problem Sleep disorder (73487583) Other sleep disorders (G47.8) Active confirmed Problem Chronic pain (38640755) Other chronic pain (G89.29) Active confirmed Problem Acquired spondylolisthesis (334883767) Spondylolisthesis , lumbosacral region (M43.17) Active confirmed Problem Radiculopathy due to lumbar intervertebral disc disorder (827268545010355) Intervertebral disc disorders with radiculopathy, lumbar region (M51.16) Active confirmed Problem Long-term current use of drug therapy (515369611) Other group home (current) drug therapy (Z79.899) Active confirmed Problem Muscle pain (68953995) Myalgia, other site (M79.18) Active confirmed Problem Pain in lumbar spine (073231804) Vertebrogenic low back pain (M54.51) Active confirmed Plan Of Treatment No Information Insurance Providers Payer Name Payer Address Payer Phone Subscriber Number Group Number Insured Name Patient Relationship to Insured Coverage Start Date Coverage End Date [employer] Medicare Part B Claims Department [address] [address] [place] [address] [phone] [id number] Hayley Chun Self - patient is the insured [facility] [address] [place] [phone] [id number] Hayley Chun Self - patient is the [...] Surgical History Surgery Date(Month/Year) Left eye surgery, 1964 Appendectomy, 1967 Tubal ligation, 1998 Hysterectomy, 2004 Cholecystectomy, 2015 Hip replacement, right, performed at [facility] by Dr. Magana, 10/10/23
--- OUTSIDE RECORDS SUMMARY | 2025-06-15 11:47 | XMS_ITS | Patient Health Record ---
Author Organization [facility] Address [address] [place] [address] Care Team Providers Care Large Animal Husbandry Technician Name Role Phone Tarah Aquino Primary Care Provider Unavailab Frida Patel Unavailable [phone] Mohamud Boyle Unavailable [phone] Sophy Wood Unavailable [phone] Joseph Mcbride Unavailable [phone] Unavailable [phone] Naila Lee Unavailable [phone] Allergies Allergen (clinical drug ingredient) Drug/Non Drug Allergy documented on EMR Reaction Allergy Type Onset Date Status Parafon Forte DSC Unknown Drug Allergy Active montelukast Singulair Unknown Drug Allergy Activ e Substance with sulfonamide structure and antibacterial mechanism of action (substance) Sulfa Antibiotics Unknown Drug Allergy Active Results Component Value Reference Range Flag Notes CT L-Spine w/o Contrast incl Recon-03031 (Not yet reviewed by provider) Interpretation: Performing Lab: Notes/Report: [id number]&org=iSite Urine Drug Screen (cup read) - 13682 Reviewed date:06/04/2025 11:31:51 AM Interpretation: Performing Lab: Notes/Report: AMP - STEPHANI - BUP - BZO - MDMA - OPI - PCP - OXY - MTD - MAMP - Fluoro Needle For Placement - Non-Spine 59562 Reviewed date:12/09/2024 09:20:42 AM Interpretation: Performing Lab: Notes/Report: zzzUrine Drug Screen (confir mation by instrument) - 64192 Reviewed date:11/25/2024 02:50:48 PM Interpretation: Performing Lab: Notes/Report: Tox Results Reviewed date:03/02/2025 03:56:41 PM Interpretation: Performing Lab: Notes/Report: Urine Drug Screen (cup read) - 86854 Reviewed date:02/26/2025 09:24:01 AM Interpretation: Performing Lab: Notes/Report: OPI + Urine Confirmation Panel (in strument) - 50843 Reviewed date:03/02/2025 03:09:28 PM Interpretation: Performing Lab: [...] the U.S. Food and Drug Administration. Pregabalin >03883 <225 ng/mL > This test was developed [...] by the U.S. Food and Drug Administration. CT L-Spine w/o Contrast incl Recon-93975 (Not yet reviewed by provider) Interpretation: Performing Lab: Notes/Report: See Below For Report CT L-Spine w/o Contrast incl Recon Read See Below For Report Schedule Confirmation (Not y et reviewed by provider) Interpretation: Performing Lab: Notes/Report: CT L-Spine w/o Contrast incl Recon Schedule Confirmation (Not y et reviewed by provider) Interpretation: Performing Lab: Notes/Report: Schedule Confirmation (Not y et reviewed by provider) Interpretation: Performing Lab: Notes/Report: CT L-Spine w/o Contrast incl Recon Schedule Confirmation (Not y et reviewed by provider) Interpretation: Performing Lab: Notes/Report: Reason For Referral Reason ncv/emg RLE at [facility] Diagnosis 1 Lumbar radiculopathy (M54.16) Referral Organization [facility] [place] Referring Provider First Name Sophy Referring Provider Last Name Israel Referring Provider Speciality Neurosurge ry Referral Priority Routine Reason PM in [place] and treat Diagnosis 1 Lumbar radiculopathy (M54.16) Diagnosis 2 Fusion of spine, lum bosacral region (M43.27) Diagnosis 3 Spinal stenosis of l umbar region, unspecified whether neurogenic claudication present (M48.061) Diagnosis 4 Facet arthropathy, l umbar (M47.816) Referral Organization [facility] [place] Referring Provider First Name Sophy Referring Provider Last Name Israel Referring Provider Speciality Neurosurge ry Referral Priority Routine Reason eval and treat Diagnosis 1 Lumbar radiculopathy (M54.16) Diagnosis 2 Facet arthropathy, l umbar (M47.816) Diagnosis 3 Spinal stenosis of l umbar region, unspecified whether neurogenic claudication present (M48.061) Referral Organization [facility] [place] Referring Provider First Name Sophy Referring Provider Last Name Israel Referring Provider Speciality Neurosurge ry Referred Organization [facility] Referred Provider Magali Yoder Referred Address [address] [place] [address],[place],[phone], Referred Provider Specialty Pain Medicin e Referral Priority Routine Medications Medication SIG (Take, Route, Frequency, Duration) Notes Start Date End Date Status HYDROcodone-Acetaminophe n 7.5-325 MG Tablet 0.5-1 tablet Orally every 6 hrs; Duration: 30 days As needed Not to exceed 1 per day Fill on 06-12-25 06/04/2025 07/12/2025 Active HYDROcodone-Acetaminophe n 7.5-325 MG Tablet 0.5-1 tablet Orally every 6 hrs; Duration: 30 days As needed Not to exceed 1 per day Fill on 07-11-25 due to being closed 06/04/2025 08/10/2025 Active Albuterol Sulfate HFA 108 (90 Base) MCG/ACT Aerosol Solution 1 puff as needed Inhalation every 4 hrs Active tiZANidine HCl 4 MG Tablet TAKE 1 TABLET BY MOUTH THREE TIMES A DAY NEEDED FOR 30 DAYS; Duration: 90 Active Cephalexin 500 MG Capsule 1 capsule Orally every 8 hrs; Duration: 10 days Not-Taking Pantoprazole Sodium 40 MG Tablet Delayed Release 1 tablet 1/2 to 1 hour before morning meal Orally Once a day 02/26/2025 Active cloNIDine 0.1 MG/24HR Patch Weekly 1 patch to skin Transdermal 06/04/2025 Active predniSONE 20 MG Tablet 2 tabs for 7 days; 1 tab for 7 days; 1/2 tab for 7 days Orally Once a day PRN Active Symbicort 80-4.5 MCG/ACT Aerosol as directed Inhalation 06/04/2025 Active Pregabalin 100 MG Capsule 1 capsule Orally Twice a day 02/26/2025 Active amLODIPine Besylate 10 MG Tablet 1 tablet Orally Once a day 06/04/2025 Active rOPINIRole HCl Not-T aking Diclofenac Sodium 75 MG Tablet Delayed Release 1 tablet as needed Orally Twice a day Active DULoxetine HCl 60 MG Capsule Delayed Release Particles 1 capsule Orally Once a day 02/26/2025 Active Hydroxychloroquine Sulfate 200 MG Tablet as directed Orally 02/26/2025 Not-Taking Vitamin D3 Active dexAMETHasone 4 MG Tablet 1 tablet Orally see instructions; Duration: 8 days 1n po qi x 2 days, 1 po tid 2 days, 1 po bid x 2 days, 1 po qd x 2 days 06/10/2024 Active Problems Problem Type SNOMED Code ICD Code Onset Dates Problem Status W/U Status Risk Notes Problem Chronic pain syndrome (370917798) Chronic pain syndrome (G89.4) Active confirmed Problem Lumbosacral arthrodesis (56813757) Fusion of spine, lumbosacral region (M43.27) Active confirmed Problem Lumbar radiculopathy (171411468) Lumbar radiculopathy (M54.16) Active confirmed Problem Spinal stenosis of lumbar region (20023614) Spinal stenosis of lumbar region, unspecified whether neurogenic claudication present (M48.061) Active confirmed Problem Lumbar spondylosis (599899911) Lumbar spondylosis (M47.816) Active confirmed Problem Solitary sacroiliitis (143959969) Sacroiliac inflammation (M46.1) Active confirmed Problem Acquired spondylolisthesis (015319787) Spondylolisthesis at L4-L5 level (M43.16) Active confirmed Problem Acquired spondylolisthesis (945595978) Spondylolisthesis at L5-S1 level (M43.17) Active confirmed Problem Acquired spondylolisthesis (625846313) Acquired spondylolisthesis of lumbosacral region (M43.17) Active confirmed Problem Arthropathy of lumbar facet joint (disorder) (547423872) Facet arthropathy, lumbar (M47.816) Active confirmed Problem Lumbar post-laminectomy syndrome (486512874) Lumbar post-laminectomy syndrome (M96.1) Active confirmed Problem Abnormal gait (16105448) Abnormality of gait and mobility (R26.9) Active confirmed Problem Lumbar spinal stenosis (37791882) Lumbar stenosis (M48.061) Active confirmed Problem Lumbosacral spondylosis (831419496) Lumbosacral spondylosis (M47.817) Active confirmed Problem Acquired spondylolisthesis (336659206) Anterolisthesis of lumbar spine (M43.16) Active confirmed Vital Signs Heart Rate 101 /min 09/30/2024 Temperature 97.3 degrees Fahrenheit 09/30/2024 Respiratory Rate 18 /min 09/30/2024 Blood pressure diastolic 74 mm Hg 09/30/2024 Oximetry 94 % 09/30/2024 Height-cm 165.1 cm 06/04/2025 Weight-kg 82.55 kg 06/04/2025 Height 65 in 06/04/2025 Blood pressure systolic 132 mm Hg 09/30/2024 Weight 182 lbs 06/04/2025 BMI 30.28 kg/m2 06/04/2025 Procedures Procedure Date Ordered Date Performed Result Body Sit e Inj. SI Joint w/ imaging gabe dance (CT or fluoroscopy) - 35478 12/09/2024 12/09/2024 N/A Facet Inj. / MBB Lumbar/Sacr al, 2 levels - 28303, 15112 01/27/2025 01/27/2025 N/A Facet Inj. / MBB Lumbar/Sacr al, 2 levels - 56522, 26312 02/10/2025 02/10/2025 N/A Neurotomy Lumbar/Sacral, 2 o r more levels - 14321, 83316 03/17/2025 03/17/2025 N/A Neurotomy Lumbar/Sacral, 2 o r more levels - 22592, 11863 04/14/2025 04/14/2025 N/A Encounters Encounter Location Date Provider Diagnosis [facility] [place] [address] [place] [address] 09/02/2024 Sophy Wood Lumbar radiculopathy M54.16 ; Facet arthropathy, lumbar M47.816 and Arthrodesis status Z98.1 [facility] [place] [address] [place] [address] 09/30/2024 Sophy Wood Lumbar radiculopathy M54.16 ; Facet arthropathy, lumbar M47.816 and Arthrodesis status Z98.1 [facility] [place] [address] [facility] [place] [address] 11/19/2024 Pelon Garciaffjosseline Chronic pain syndrome G89.4 ; Lumbar spondylosis M47.816 ; Sacroiliac inflammation M46.1 ; Lumbar post-laminectomy syndrome M96.1 ; Abnormality of gait and mobility R26.9 and Analgesic use Z79.899 [facility] [address] [place] [address] 12/09/[address] Sacroiliac inflammation M46.1 [facility] [place] [address] [facility] [place] [address] 01/07/[address] Chronic pain syndrome G89.4 ; Lumbar spondylosis M47.816 ; Sacroiliac inflammation M46.1 ; Lumbar post-laminectomy syndrome M96.1 ; Abnormality of gait and mobility R26.9 and Analgesic use Z79.899 [facility] [address] [place] [address] 01/27/[address] Lumbar spondylosis M47.816 [facility] [address] [place] [address] 02/10/[address] Lumbar spondylosis M47.816 [facility] [place] [address] [facility] [place] [address] 02/26/2025 Frida Martin Chronic pain syndrome G89.4 ; Lumbar spondylosis M47.816 ; Sacroiliac inflammation M46.1 ; Lumbar post-laminectomy syndrome M96.1 ; Abnormality of gait and mobility R26.9 ; Lumbosacral spondylosis M47.817 ; Analgesic use Z79.899 and residential (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 Z79.891 [facility] [address] [place] [address] 03/17/2025 Pelon Steret Lumbosacral spondylosis M47.817 [facility] [address] [facility] [place] [address] 04/14/2025 Pelon Garciajennifer Lumbosacral spondylosis M47.817 [facility] [place] [address] [place] [address] 06/04/2025 Frida Veronica Chronic pain syndrome G89.4 ; Lumbar spondylosis M47.816 ; Sacroiliac inflammation M46.1 ; Lumbar post-laminectomy syndrome M96.1 ; Abnormality of gait and mobility R26.9 ; Lumbosacral spondylosis M47.817 ; terminal worker (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 Z79.891 and Analgesic use Z79.899 [facility] [place] [address] [place] [address] 06/16/2024 [facility] [place] [address] [place] [address] 06/24/2024 [facility] [place] [address] [place] [address] 07/02/2024 [facility] [place] [address] [place] [address] 07/14/2024 [facility] [place] [address] [place] [address] 07/16/2024 Sophy Wood [facility] [place] [address] [place] [address] 09/15/2024 [facility] [place] [address] [place] [address] 11/20/[address] Chronic pain syndrome G89.4 [facility] [address] [facility] [place] [address] 12/10/[address] [facility] [place] [address] [place] [address] 12/18/2024 Sophy Wood [facility] [place] [address] [place] [address] 01/14/[address] Chronic pain syndrome G89.4 and Lumbar stenosis M48.061 [facility] [address] [place] [address] 02/05/2025 Naila [facility] [address] [place] [address] 02/05/2025 Naila [facility] [place] [address] [place] [address] 02/11/[address] Lumbar stenosis M48.061 [facility] [place] [address] [place] [address] 02/26/[address] Lumbar radiculopathy M54.16 [facility] [place] [address] [address] 06/02/2025 Mohamud Boyle [facility] [place] [address] [place] [address] 06/04/[address] Lumbosacral spondylosis M47.817 Assessments Encounter Date Diagnosis (ICD Code) Assessment Notes Treatment Notes Treatment Clinical Notes Section Notes 02/26/2025 Lumbar radiculopathy (ICD-10 - M54.16) 03/17/2025 Lumbosacral spondylosis (ICD-10 - M47.817) 04/14/2025 Lumbosacral spondylosis (ICD-10 - M47.817) 06/04/2025 Chronic pain syndrome (ICD-10 - G89.4) I had a nice discussion with the patient today regarding her chronic pain complaints. She states the lumbar sacral rhizotomies have helped more on the left than they have the right so far. She feels her hydrocodone is lacking in strength and duration as she states she does not have enough for 1 every day. She states that it is not all the time that she needs 1 every day and some months are worse than others. After discussion of treatment options we will trial her on an increase of her hydrocodone to 7.5/325 and increase her to 30/month so she has enough for 1/day. She denies any changes in her health since we last seen her any untoward side effects of the medication. She defers any physical therapy. I did review her lumbar CT with her again today. I did discuss lifestyle modifications as well as a bowel regimen. She will return to clinic in 2 months to monitor for treatment effectiveness and compliance. [...] effects are noted. Last UDS and [place] CLIENT PARTNER reviewed today. Patient is advised that best [...] to abide by our urine testing policy. 06/04/2025 Lumbar spondylosis (ICD-10 - M47.816) 01/27/2025 Lumbar spondylosis (ICD-10 - M47.816) 02/10/2025 [...] effects are noted. Last UDS and [place] CLIENT PARTNER reviewed today. Patient is advised that best [...] 0, Notes to Pharmacist: Fill on 04/13/25 02/26/2025 Lumbar spondylosis (ICD-10 - M47.816) 01/14/2025 Chronic pain syndrome (ICD-10 - G89.4) 06/04/2025 Lumbosacral spondylosis (ICD-10 - M47.817) 09/02/2024 Lumbar radiculopathy (ICD-10 - M54.16) 09/02/2024 Facet arthropathy, lumbar (ICD-10 - M47.816) 09/30/2024 Lumbar radiculopathy (ICD-10 - M54.16) 09/30/2024 [...] injection 11/19/2024 Lumbar spondylosis (ICD-10 - M47.816) 12/09/2024 Sacroiliac inflammation (ICD-10 [...] so no prescriptions were provided. Schedule SMBBs 01/07/2025 Lumbar spondylosis (ICD-10 - M47.816) RECOMMEND [...] the procedure and all questions were answered. 11/19/2024 Sacroiliac inflammation (ICD-10 - M46.1) 09/30/2024 Arthrodesis status (ICD-10 - Z98.1) 09/02/2024 Arthrodesis status (ICD-10 - Z98.1) 11/20/2024 Chronic pain syndrome (ICD-10 - G89.4) 02/26/2025 Sacroiliac inflammation (ICD-10 - M46.1) 06/04/2025 Sacroiliac inflammation (ICD-10 - M46.1) 06/04/2025 Lumbar post-laminectomy syndrome (ICD-10 - M96.1) 02/26/2025 Lumbar post-laminectomy syndrome (ICD-10 - M96.1) 01/14/2025 Lumbar stenosis (ICD-10 - M48.061) 11/19/2024 Lumbar post-laminectomy syndrome (ICD-10 - M96.1) 01/07/2025 Sacroiliac inflammation (ICD-10 - M46.1) 01/07/2025 Lumbar post-laminectomy syndrome (ICD-10 - M96.1) 11/19/2024 Abnormality of gait and mobility (ICD-10 - R26.9) 02/26/2025 Abnormality of gait and mobility (ICD-10 - R26.9) 06/04/2025 Abnormality of gait and mobility (ICD-10 - R26.9) 06/04/2025 Lumbosacral spondylosis (ICD-10 - M47.817) 02/26/2025 Lumbosacral spondylosis (ICD-10 - M47.817) RECOMMEND [...] the procedure and all questions were answered. 11/19/2024 Analgesic use (ICD-10 - Z79.899) 01/07/2025 Abnormality of gait and mobility (ICD-10 - R26.9) 01/07/2025 Analgesic use (ICD-10 - Z79.899) 02/26/2025 Analgesic use (ICD-10 - Z79.899) 06/04/2025 residential (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 (ICD-10 - Z79.891) RECOMMEND URINE TESTING TODAY Urine drug screening [...] to abide by our urine testing policy. 06/04/2025 Analgesic use (ICD-10 - Z79.899) 02/26/2025 terminal worker (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 (ICD-10 - Z79.891) 09/02/[address] and NCS/EMG [...] Test Test Name Order Date Prothrombin Time 38763 03/05/2024 Prothrombin Time 76361 03/25/2024 ABORh 10913, 28667 03/05/2024 ABORh 66061, 28985 03/25/2024 Antibody Screen 91982 03/25/2024 Antibody Screen 56146 03/05/2024 Basic Metabolic Panel (BMP) 18729 2023 Basic Metabolic Panel (BMP) 61013 2023 Basic Metabolic Panel (BMP) 66415 2023 CBC w\ Auto Diff 67208 04/03/2024 CBC w\ Auto Diff 79373 03/05/2024 CBC w\ Auto Diff 33069 03/25/2024 Partial Thromboplastin Time 40907 2023 Partial Thromboplastin Time 90589 2023 Chest PA/Lat-44836 03/05/2024 Chest PA/Lat-40558 03/25/2024 CT L-Spine w/o Contrast incl Recon-56086 09/15/2024 CT L-Spine w/o Contrast incl Recon-75919 09/02/2024 Lumbosacral Spine AP/Lat-26080 XR Outside CD 08/14/2023 Electrocardiogram 12 Lead Tracing-10354 03/05/2024 BB ABORH-43626,15211 03/25/2024 zzzFluoroscopy 04/02/2024 zzzMRI Outside CD 08/09/2023 Schedule Confirmation 09/15/2024 Schedule Confirmation 09/15/2024 Schedule Confirmation 09/15/2024 Schedule Confirmation 09/15/2024 IH Lumbosacral Spine AP/Lat - 07420 06/0 02/2024 IH Lumbosacral Spine AP/Lat - 29633 06/0 02/2024 Urine Confirmation Panel (instrument) - 92598 06/04/2025 Future Test Test Name Order Date CBC w\ Auto Diff 95791 04/16/2024 Sedimentation Rate 43895 04/16/2024 CRP 91969 04/16/2024 Next Appt Details Provider Name:Pelon Josseline Street, 08/05/2025 01:00:00 PM, [address] [place], [address], Insurance Providers Payer Name Payer Address Payer Phone Subscriber Number Group Number Insured Name Patient Relationship to Insured Coverage Start Date Coverage End Date [employer] Medicare Replacement [address] [address] [place] [address] [id number] SARATH CHUN Self - patient is the insured [place] Medicaid [address] [place] [address] [id number] SARATH CHUN Self - patient is the insured [facility] [address] [place] [phone] [id number] SARATH CHUN Self - patient is the insured [place] Medicare [address] [address] [place] [address] [phone] [id number] SARATH CHUN Self - patient is the insured Medical (General) History Medical History History ICD Code Depression Back Pain acid reflux asthma insomnia COPD Headache, migraine anxiety chronic cough Surgical History Surgery Date(Month/Year) eye appendectomy hysterectomy gall bladder removal hip decompression lumbar fusion 03/2024
--- OUTSIDE RECORDS SUMMARY | 2025-06-15 11:47 | XMS_ITS | Clinical Summary ---
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 Gender Identity Not on file Sexual Orientation Not on file Last Filed Vital Signs Vital Sign Reading Time Taken Comments Blood Pressure 124/74 09/14/2021 12:20 PM COMMERCIAL SERVICE TECHNICIAN Pulse 94 09/14/2021 12:20 PM COMMERCIAL SERVICE TECHNICIAN Temperature - - Respiratory Rate - - Oxygen Saturation 97% 09/14/2021 12:20 PM COMMERCIAL SERVICE TECHNICIAN Inhaled Oxygen Concentration - - Weight 71.7 kg (158 lb) 09/14/2021 12:20 PM COMMERCIAL SERVICE TECHNICIAN Height 157.5 cm (5' 2 ) 09/14/2021 12:20 PM COMMERCIAL SERVICE TECHNICIAN Body Mass Index 28.9 09/14/2021 12:20 PM COMMERCIAL SERVICE TECHNICIAN Plan of Treatment Health Maintenance Due Date [...] - 1-dose 75+ series) 2033 [id number] [place] [address] [employer] EXCHANGE [id number] [address] [id number] Care Teams Ladle Repairer Relationship Specialty Start Date End Date Adama Zuñiga DO [address] [address] PCP - General Internal Medicine 08/19/21
--- NOTE | 2025-06-15 13:05 | ED_ITS ---
HPI - Back Pain/Injury 2 General: Chief Complaint: Back Pain/Injury Stated Complaint: back pain, bilat leg weakness Time Seen by Provider: 06/15/25 12:50 Source: patient Mode of arrival: ambulatory Limitations: no limitations History of Present Illness: Patient is a nice 64-year-old female presents to ED today with a complaint of back pain. She states she has a longstanding history of sacral iliac discomfort. Patient states she sees Dr. Masters with pain management. She did recently undergo nerve ablation but does not feel like this has helped. She feels like pain is worse with ambulation. She does report soreness to her legs but is not complaining of any saddle anesthesia or bowel or bladder dysfunction. She feels like her back pain is the same as her chronic pain, only worse in severity. She has been taking hydrocodone without much relief. She also has been using diclofenac topical gel. MD elicited complaint: back pain Pertinent past history: prior back pain Onset (ago): week(s) Timing: constant Severity: severe Similar Symptoms Previously: Yes Quality: burning Location: right lower back and left lower back Radiation: none Exacerbating factors: movement and walking Relieving factors: none Associated symptoms: Reports no associated symptoms; Deny abdominal pain, chills, difficulty walking, dysuria, fatigue, fever(s) or hematuria Work related injury: No Related Data Home Medications ?Medication ?Instructions ?Recorded ?Confirmed cholecalciferol (vitamin D3) 50 50 mcg PO DAILY 06/10/25 mcg (2,000 unit) tablet (Vitamin D3) Previous Rx's ?Medication ?Instructions ?Recorded clobetasol 0.05 % topical cream 1 applic topical DAILY PRN skin 07/14/24 irritation #30 grams nebulizer #1 ea 09/16/24 quad tip cane #1 ea 10/10/24 diclofenac sodium 1 % topical gel 4 g topical QID #100 grams 01/06/25 (Voltaren Arthritis Pain) hydrocodone 5 mg-acetaminophen 325 1 tab PO .q 4-6 PRN pain #20 tabs 02/23/25 mg tablet albuterol sulfate 2.5 mg/3 mL 2.5 mg (3 mL) inhalation QID PRN 02/26/25 (0.083 %) solution for nebulization shortness of breat h or wheezing #75 mL diclofenac sodium 75 mg See Rx Instructions .Route 0 5/28/25 tablet,delayed release .COMPLEX #60 tabs pantoprazole 40 mg tablet,delayed 40 mg PO DAILY #90 t abs 04/22/25 release ropinirole 2 mg tablet See Rx Instructions .Route 0 04/23/25 .COMPLEX #90 tabs duloxetine 60 mg capsule,delayed See Rx Instructions . Route 04/28/25 release .COMPLEX #90 caps albuterol sulfate 90 mcg/actuation See Rx Instructions .Route 05/08/25 aerosol inhaler .COMPLEX #8.5 ea pregabalin 100 mg capsule (Lyrica) 100 mg PO BID #180 caps 05/12/25 clonidine HCl 0.1 mg tablet 0.1 mg PO DAILY #20 tabs 0 05/21/25 budesonide-formoterol HFA 160 See Rx Instructions .Rou te 06/03/25 mcg-4.5 mcg/actuation aerosol .COMPLEX #10.2 ea inhaler (Symbicort) prednisone 20 mg tablet See Rx Instructions PO .COMP [place] 06/04/25 PRN joint pain flare #30 tabs amlodipine 10 mg tablet 10 mg PO DAILY #90 tabs 05/29 01/20 tirzepatide 2.5 mg/0.5 mL 2.5 mg (0.5 mL) SUBCUT Q7D # 2 mL 06/10/25 subcutaneous pen injector (Primo) Allergies Allergy/AdvReac Type Severity Reaction Status Date / Time montelukast (From Singulair) Allergy Severe tongue Verified 06/15/25 11:48 swelling chlorzoxazone (From Parafon Allergy ALGY-Rash Verified 06/15/25 11:48 Forte DSC) Sulfa (Sulfonamide Allergy ALGY-Hives Verified 06/15/25 11:48 Antibiotics) leflunomide AdvReac Intermediate ADR-Hyperte Verified 06/15/25 11:48 nsion Review of Systems 2 Const: Denies: fever(s), chills, body aches, fatigue or malaise Card: Denies: chest pain Resp: Denies: dyspnea GI: Denies: abdominal pain : Denies: flank pain, dysuria or hematuria Musc: Reports: back pain; Denies: neck pain, extremity pain, extremity swelling, joint pain, joint swelling or joint redness Skin/Breast: Denies: rash Neuro: Denies: headache(s), numbness in extremities, weakness in extremities, sensory changes or difficulty walking PFSH ED 2 PFSH: Medical History Immunization counseling High risk medication use Seronegative rheumatoid arthritis of both hands Fibromyalgia Polyarthralgia Hypertension Tubular adenoma of colon Tobacco use High risk for hip fracture Osteopenia GERD (gastroesophageal reflux disease) Skin rash Degenerative joint disease (DJD) of lumbar spine Osteoarthritis, generalized Migraines COPD (chronic obstructive pulmonary disease) Asthma Joint pain Surgical History History of hip surgery right Hx of eye surgery History of hysterectomy with bilateral oophorectomy History of appendectomy History of cholecystectomy Family History Mother Diabetes Cancer Dementia Father Diabetes Cancer Brother Diabetes Denies family history of CAD (coronary artery disease) Clotting disorder Hyperlipidemia Psychiatric illness Chronic kidney disease (CKD) Suicide Anesthesia complication Bleeding disorder Family history of premature coronary artery disease Lung disease Hypertension Stroke Social History Smoking and tobacco/nicotine status: current every day tobacco/nicotine user cigarettes Packs smoked per day: 1 Years cigarettes smoked: 43 Alcohol intake: never Substance/Drug Use: never Lives independently: Yes Household members: spouse Marital status: Current occupational status: employed 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 Physical Exam 2 Const: COMMON NORMALS: no acute distress, average body habitus, patient oriented x3, no limitations, healthy appearing, alert and well nourished G ENERAL APPEARANCE: cooperative ORIENTATION/CONSCIOUSNESS: Yes awake, Yes oriented to person, Yes oriented to place and Yes oriented to time Resp: COMMON NORMALS: normal respiratory effort : COMMON NORMALS: Yes no CVA tenderness BLADDER/KIDNEY EXAM: Yes no CVA tenderness Back/Pelvis: COMMON NORMALS: no CVA tenderness, thoracic and lumbar spine normal to inspection and straight leg raise negative bilaterally PELVIS: Yes sciatic notch tenderness bilateral SACROILIAC JOINTS: Yes SI joint(s) abnormal SI joint details: tender to palpation (bilateral) SACRUM: no tenderness COCCYX: no tenderness Extremity: COMMON NORMALS: capillary refill normal, no clubbing, cyanosis or edema and no pedal edema GENERAL: Yes normal exam except as noted Neuro: COMMON NORMALS: patient oriented x3, moves all extremities, no focal motor deficits and no sensory deficits noted SENSORIUM/ORIENTATION: Yes alert, Yes oriented to person, Yes oriented to place and Yes oriented to time Skin: COMMON NORMALS: no rashes or lesions noted GENERAL SKIN EXAM: no rashes or lesions noted Course 2 Vital Signs: Vital signs: Vital Signs Temperature 98.2 F 06/15/25 11:43 Pulse Rate 70 06/15/25 16:20 Respiratory Rate 16 06/15/25 16:20 Blood Pressure 111/71 06/15/25 16:20 Pulse Oximetry 93 06/15/25 16:20 Oxygen Delivery Me thod Room Air 06/15/25 16:20 MDM - Back Pain/Injury Medical Decision Making Patient is a 64-year-old female here for bilateral sacroiliac pain. Pain today seems to be acute on chronic. She does have a painting instructor that she sees for this and has had nerve ablations several weeks ago. She was treated with IV Decadron, Norflex, Toradol, Morphine. Shortly after RN administered these medications patient began complaining of severe intermittent epigastric and chest pain. EKG obtained and unremarkable. Vitals remained stable. Fluids were administered as well as a GI cocktail in addition to blood work and further workup. Ultimately no etiology for her symptoms was found. Patient was re-assessed and she states all of her symptoms have subsided. Patient will be allowed discharge with return precautions. Medical Records I reviewed the patient's medical records. Labs I reviewed the patient's lab results. 06/15/25 15:10 06/15/25 15:10 Radiology Impressions Chest X-Ray 06/15/25 14:46 IMPRESSION: No acute findings. Chest/Abdomen/Pelvis CT 06/15/25 14:58 IMPRESSION: No acute findings. No evidence of PE or aortic dissection. IMPRESSION: 1. Status post posterior fusion L4-S1 with laminectomies of L4 and L5. 2. Diverticulosis of the colon without evidence of diverticulitis. 3. Status post cholecystectomy 4. Additional findings as described above.. COMMENTS: Consistent with the [place] [employer]'s Incidental Findings Committee white paper (J Am Gumaro Radiol 2018): Any incidental renal lesion less than 1 cm or classified as too small to characterize, or any incidental cystic renal lesion characterized as simple-appearing, is likely benign. No follow-up imaging is recommended for these lesions per consensus recommendations based on imaging criteria. Laboratory Results WBC 8.70 10^3/uL (3.29-11.43) 06/15/25 15:10 RBC 4.98 10^6/uL (3.85-5.65) 06/15/25 15:10 Hgb 13.10 g/dL (11.27-16.99) 06/15/25 15:10 Hct 41.9 % (36-47) 06/15/25 15:10 MCV 84.1 fl (85-98) L 06/15/25 15:10 MCH 26.3 pg (27-33) L 06/15/25 15:10 MCHC 31.3 g/dL (30-55) 06/15/25 15:10 RDW 14.6 % (12.1-15.1) 06/15/25 15:10 Plt Count 287 10^3/cmm (157-399) 06/15/25 15:10 MPV 10.6 fL (7.4-10.4) H 06/15/25 15:10 Neut % (Auto) 67.3 % 06/15/25 15:10 Lymph % (Auto) 20.9 % 06/15/25 15:10 [place] % (Auto) 8.0 % 06/15/25 15:10 Eos % (Auto) 2.6 % 06/15/25 15:10 Baso % (Auto) 0.6 % 06/15/25 15:10 Neut # (Auto) 5.85 10^3/uL (1.8-7.7) 06/15/25 15:10 Lymph # (Auto) 1.8 10^3/uL (0.8-4.8) 06/15/25 15:10 [place] # (Auto) 0.7 10^3/uL (0.2-0.9) 06/15/25 15:10 Eos # (Auto) 0.2 10^3/uL (0.0-0.8) 06/15/25 15:10 Baso # (Auto) 0.1 10^3/uL (0.0-0.1) 06/15/25 15:10 Nucleated RBC % (auto) 0 % 06/15/25 15:10 Nucleated RBCs # 0.0 /100WBC 06/15/25 15:10 Sodium 134 mmol/L (136-145) L 06/15/25 15:10 Potassium 4.9 mmol/L (3.5-5.1) 06/15/25 15:10 Chloride 100 mmol/L (98-107) 06/15/25 15:10 Carbon Dioxide 25 mmol/L (22-29) 06/15/25 15:10 Anion Gap 13.9 (5-19) 06/15/25 15:10 BUN 15 mg/dL (8-23) 06/15/25 15:10 Creatinine 0.7 mg/dL (0.5-0.9) 06/15/25 15:10 GFR Calculation 83.7 mL/min (90-130) L 06/15/25 15:10 Glucose 109 mg/dL (65-115) 06/15/25 15:10 Calculated Osmolality 279 mOsm/kg (285-295) L 06/15/25 15:10 Calcium 8.7 mg/dL (8.5-10.5) 06/15/25 15:10 Total Bilirubin 0.5 mg/dL (0.15-1.2) 06/15/25 15:10 AST 117 U/L (0-32) H 06/15/25 15:10 ALT 60 U/L (0-33) H 06/15/25 15:10 Alkaline Phosphatase 124 U/L (35-105) H 06/15/25 15:10 Troponin T Baseline 9 ng/L (0-10) 06/15/25 15:10 Total Protein 6.1 g/dL (6.6-8.7) L 06/15/25 15:10 Albumin 4.0 g/dL (3.5-5.2) 06/15/25 15:10 Globulin 2.1 g/dL (1.3-4.6) 06/15/25 15:10 All radiology interpretation(s) finalized by discharge Discharge Plan Discharge Patient Disposition: Home Clinical Impression: Bilateral sacroiliitis Condition: Stable Prescriptions: No Action pregabalin [Lyrica] 100 mg capsule 100 mg PO BID Qty: 180 1RF pantoprazole 40 mg tablet,delayed release (DR/EC) 40 mg PO DAILY Qty: 90 0RF Mounjaro 2.5 mg/0.5 mL pen injector 2.5 mg SUBCUT Q7D Qty: 2 0RF amlodipine 10 mg tablet 10 mg PO DAILY Qty: 90 0RF clobetasol 0.05 % cream 1 applic topical DAILY PRN (Reason: skin irritation) Qty: 30 0RF (DME) nebulizer See Rx Instructions .Route .MEDSUPPLY Qty: 1 0RF Rx Instructions: As directed (DME) quad tip cane See Rx Instructions .Route .MEDSUPPLY Qty: 1 0RF Rx Instructions: As directed diclofenac sodium [Voltaren Arthritis Pain] 1 % gel 4 g topical QID Qty: 100 0RF Rx Instructions: apply to single knee, ankle, foot; for foot includes sole/toes/top of foot albuterol sulfate 2.5 mg /3 mL (0.083 %) solution for nebulization 2.5 mg inhalation QID PRN (Reason: shortness of breath or wheezing) Qty: 75 0RF diclofenac sodium 75 mg tablet,delayed release (DR/EC) See Rx Instructions .ROUTE .COMPLEX Qty: 60 2RF Dose Instruction: TAKE 1 TABLET BY MOUTH TWICE A DAY Rx Instructions: TAKE 1 TABLET BY MOUTH TWICE A DAY ropinirole 2 mg tablet See Rx Instructions .ROUTE .COMPLEX Qty: 90 0RF Dose Instruction: TAKE ONE TABLET EVERY EVENING Rx Instructions: TAKE ONE TABLET EVERY EVENING duloxetine 60 mg capsule,delayed release(DR/EC) See Rx Instructions .ROUTE .COMPLEX Qty: 90 0RF Dose Instruction: TAKE 1 CAPSULE BY MOUTH EVERY MORNING Rx Instructions: TAKE 1 CAPSULE BY MOUTH EVERY MORNING albuterol sulfate 90 mcg/actuation HFA aerosol inhaler See Rx Instructions .ROUTE .COMPLEX Qty: 8.5 2RF Dose Instruction: INHALE 2 PUFFS BY MOUTH 4 TIMES DAILY NEEDED FOR SHORTNESS OF BREATH Rx Instructions: INHALE 2 PUFFS BY MOUTH 4 TIMES DAILY NEEDED FOR SHORTNESS OF BREATH budesonide-formoterol [Symbicort] 160-4.5 mcg/actuation HFA aerosol inhaler See Rx Instructions .ROUTE .COMPLEX Qty: 10.2 0RF Dose Instruction: INHALE 2 PUFFS EVERY 12 HOURS Rx Instructions: INHALE 2 PUFFS EVERY 12 HOURS prednisone 20 mg tablet See Rx Instructions PO .COMPLEX PRN (Reason: joint pain flare) Qty: 30 1RF Rx Instructions: take 1 or 2 tab daily for up to 7 days as needed for arthritis flare PO PRN; hydrocodone-acetaminophen 5-325 mg tablet 1 tab PO .q 4-6 PRN (Reason: pain) Qty: 20 0RF cholecalciferol (vitamin D3) [Vitamin D3] 50 mcg (2,000 unit) Tablet 50 mcg PO DAILY clonidine HCl 0.1 mg tablet 0.1 mg PO DAILY Qty: 20 0RF Rx Instructions: For Systolic >185 diastolic >100. If you are needing this more than once a day you need to follow with your primary care provider Discharge Orders: Discharge ED (Routine); Ordered 06/15/25 Ordered By: Corinna Nunes Referrals: Tarah Aquino MD [Primary Care Provider, Family Practice] Patient Instructions: Patient Portal & Leticia Instructions Activity Restrictions/Additional Instructions: Discussed, continue plan to follow-up with your primary care provider and/or your painting instructor for further evaluation of your back pain. Print Language: Wolof Coding Level of Care Code ED Auto Servicer for Nabila Westbrook
[2025-06-15] MEDS: morphine 4 mg/mL SDV 1 mL IVP (13:50)
[2025-06-15] MEDS: orphenadrine 30 mg/mL Inj 2 mL 60 MG IVP (13:54)
--- NOTE | 2025-06-15 14:41 | ECG_ITS ---
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 Measurements Intervals [place] Rate: 62 P: 68 UT: 131 QRS: 31 QRSD: 84 T: 43 QT: 415 QTc: 424 Interpretive Statements SINUS RHYTHM POSSIBLE ANTERIOR MYOCARDIAL INFARCTION , PROBABLY OLD [30 ms Q WAVE IN V3/V4, OR R < 0.2 mV IN V4] Compared to ECG 05/21/2025 13:52:56 Myocardial infarct finding now present Electronically Signed On 06-20-2025 09:16:35 CDT by Shaniqua Parsons M.D. [email or web address] [id number]
--- NOTE | 2025-06-15 14:46 | XRR_ITS ---
PROCEDURE INFORMATION: Exam: XR Chest Exam date and time: 06/15/2025 2:50 PM Age: 64 years old Clinical indication: Pain; Angina pectoris; Additional info: Chest pain TECHNIQUE: Imaging protocol: Radiologic exam of the chest. Views: 1 view. COMPARISON: CR XR chest 1V portable [id number] 05/21/2025 10:59 AM FINDINGS: Lungs: Unremarkable. No consolidation. Pleural spaces: Unremarkable. No pleural effusion. No pneumothorax. Heart/Mediastinum: Unremarkable. No cardiomegaly. Bones/joints: Sclerotic lesion is present in the right humeral neck unchanged. XR/XR chest 1V portable [id number] IMPRESSION: No acute findings.
--- NOTE | 2025-06-15 14:58 | CTR_ITS ---
PROCEDURE INFORMATION: Exam: CT Chest With Contrast; Diagnostic Exam date and time: 06/15/2025 3:26 PM Age: 64 years old Clinical indication: Abdominal pain; Angina pectoris; Prior surgery; Surgery date: 6+ months; Surgery type: Gb, appy, hyst, lumbar, RT hip; Bilateral flank pain, epigastric/central chest pain since being in er. Weakness; Additional info: Chest/epigastric pain TECHNIQUE: Imaging protocol: Diagnostic computed tomography of the chest with contrast. Radiation optimization: All CT scans at this facility use at least one of these dose optimization techniques: automated exposure control; mA and/or kV adjustment per patient size (includes targeted exams where dose is matched to clinical indication); or iterative reconstruction. Contrast material: OMNI 350; Contrast volume: 100 ml; Contrast route: INTRAVENOUS (IV); COMPARISON: CT angio chest PE protcl [id number] 08/26/2022 12:22 AM RADIATION DOSE METRICS: Total DLP (mGy-cm): 1225.96 FINDINGS: Lungs: Unremarkable. No consolidation. No masses. Pleural spaces: Unremarkable. No pneumothorax. No pleural effusion. Heart: Unremarkable. No cardiomegaly. No pericardial effusion. Lymph nodes: Unremarkable. No enlarged lymph nodes. Vasculature: Unremarkable. No aortic aneurysm. Bones/joints: Unremarkable. No acute fracture. Soft tissues: Unremarkable. PROCEDURE INFORMATION: Exam: CT Abdomen And Pelvis With Contrast Exam date and time: 06/15/2025 3:26 PM Age: 64 years old Clinical indication: Abdominal pain; Angina pectoris; Prior surgery; Surgery date: 6+ months; Surgery type: Gb, appy, hyst, lumbar, RT hip; Bilateral flank pain, epigastric/central chest pain since being in er. Weakness; Additional info: Chest/epigastric pain TECHNIQUE: Imaging protocol: Computed tomography of the abdomen and pelvis with contrast. Radiation optimization: All CT scans at this facility use at least one of these dose optimization techniques: automated exposure control; mA and/or kV adjustment per patient size (includes targeted exams where dose is matched to clinical indication); or iterative reconstruction. Contrast material: OMNI 350; Contrast volume: 100 ml; Contrast route: INTRAVENOUS (IV); COMPARISON: CT abdomen pelvis w con* [id number] 09/01/2024 9:16 AM RADIATION DOSE METRICS: Total DLP (mGy-cm): 1225.96 FINDINGS: Lungs: Visualized portions of the lungs are clear. No effusions. Liver: There has a simple cyst in the left lobe of the liver. Gallbladder and biliary ducts: The gallbladder is surgically absent. Pancreas: Normal. No ductal dilation. Spleen: Normal. No splenomegaly. Adrenal glands: Normal. No mass. Kidneys and ureters: There is a simple cyst in the right kidney. Kidneys are otherwise unremarkable. Stomach and bowel: There is diverticulosis of the colon without evidence of diverticulitis. Appendix: No evidence of appendicitis. Intraperitoneal space: Unremarkable. No free air. No significant fluid collection. Vasculature: Unremarkable. No abdominal aortic aneurysm. Lymph nodes: Unremarkable. No enlarged lymph nodes. Urinary bladder: Unremarkable as visualized. Reproductive: The uterus is surgically absent. Bones/joints: Postop changes of right hip replacement are present. Posterior fusion of L 4 to S1 is present. Laminectomies of L 4 and L5 are present. Soft tissues: Unremarkable. CT/CT chest abdpel w/*[id number] IMPRESSION: No acute findings. No evidence of PE or aortic dissection. IMPRESSION: 1. Status post posterior fusion L4-S1 with laminectomies of L4 and L5. 2. Diverticulosis of the colon without evidence of diverticulitis. 3. Status post cholecystectomy 4. Additional findings as described above.. COMMENTS: Consistent with the [place] [employer]'s Incidental Findings Committee white paper (J Am Gumaro Radiol 2018): Any incidental renal lesion less than 1 cm or classified as too small to characterize, or any incidental cystic renal lesion characterized as simple-appearing, is likely benign. No follow-up imaging is recommended for these lesions per consensus recommendations based on imaging criteria.
[2025-06-15] MEDS: lidocaine 2% viscous 15 ML, aluminum-mag hydrox-simethicon 30 ML, sucralfate oral liq 1 GM PO (15:04)
[2025-06-15 15:15] LABS: Hematocrit 41.9 % (36-47); Hemoglobin 13.10 g/dL (11.27-16.99); Mean Corpuscular HGB Conc 31.3 g/dL (30-55); Mean Corpuscular Hemoglobin 26.3 pg (27-33); Mean Corpuscular Volume 84.1 fl (85-98); Nucleated Red Blood Cells % 0 %; Platelet Count 287 10^3/cmm (157-399); Red Blood Count 4.98 10^6/uL (3.85-5.65); White Blood Count 8.70 10^3/uL (3.29-11.43)
[2025-06-15] MEDS: iohexol 350 mg/mL 500 mL Btl (per mL) IV (15:29)
[2025-06-15 15:35] LABS: Troponin(5th) Baseline 9 ng/L (0-10)
[2025-06-15 15:46] LABS: Alanine Aminotransferase 60 U/L (0-33); Albumin Level 4.0 g/dL (3.5-5.2); Alkaline Phosphatase 124 U/L (35-105); Blood Urea Nitrogen 15 mg/dL (8-23); Calcium 8.7 mg/dL (8.5-10.5); Carbon Dioxide 25 mmol/L (22-29); Chloride 100 mmol/L (98-107); Creatinine Clr Calc Pharmacy 69.2822; Globulin 2.1 g/dL (1.3-4.6); Glucose 109 mg/dL (65-115); Osmolality Calculated 279 mOsm/kg (285-295); Sodium 134 mmol/L (136-145); Total Protein 6.1 g/dL (6.6-8.7)
[2025-06-15 15:49] LABS: Anion Gap 13.9 (5-19); Aspartate Amino Transferase 117 U/L (0-32); Potassium 4.9 mmol/L (3.5-5.1)
--- NOTE | 2025-06-15 16:49 | ECG_ITS ---
[employer] [facility] Test Date: 2025-06-15 Pat Name: Hayley Chun Department: Room: Gender: Female Rx Specialist: : 1960 Requested By: Corinna Nunes Order Number: [id number] Ej MD: Michael Treadwell M.D. Measurements Intervals [place] Rate: 72 P: 65 IN: 138 QRS: 27 QRSD: 80 T: 40 QT: 398 QTc: 437 Interpretive Statements SINUS RHYTHM POSSIBLE ANTERIOR MYOCARDIAL INFARCTION , PROBABLY OLD [30 ms Q WAVE IN V3/V4, OR R < 0.2 mV IN V4] Compared to ECG 06/15/2025 14:41:46 No significant changes Electronically Signed On 06-20-2025 09:49:58 CDT by Michael Treadwell M.D. [email or web address] [id number]
== END 2025-06-15 16:51 | disposition home or self-care (01) ==
PROVIDERS: Emergency Provider Physician Assistant; PCP Family Medicine
DX: M46.1 Sacroiliitis, not elsewhere classified (principal); F17.210 Nicotine dependence, cigarettes, uncomplicated; J44.9 Chronic obstructive pulmonary disease, unspecified; I10 Essential (primary) hypertension
CPT/HCPCS: 71045; 71260; 74177; 80053; 84484; 85025; 93005; 96361; 96374; 96375; 99285; J1100; J1885; J2270; J2360; J7030; J9999

== ENCOUNTER → 2025-06-23 15:10 | Outpatient (BNVA) | payer MEDICARE, MEDICAID, SELFPAY | PROVIDERS: PCP Family Medicine; Visit Provider Orthopaedic Surgery | DX: M46.1 Sacroiliitis, not elsewhere classified (principal); M54.9 Dorsalgia, unspecified; G89.29 Other chronic pain; Z01.818 Encounter for other preprocedural examination | CPT/HCPCS: 36415; 72110; 80053; 81001; 85025; 87086; 88304; 99214 ==

== ENCOUNTER 2025-06-25 10:26 | Emergency (ER) | payer MEDICARE, MEDICAID, SELFPAY ==
--- OUTSIDE RECORDS SUMMARY | 2024-03-26 03:30 | XMS_ITS ---
Author Organization [facility] Address [address] [place], [place] [id number] Care Team Providers Care Mental Health Professional Name Role Phone Adama Zuñiga DO Primary Care Provider Shabnam Reyes MD, Nitin Unavailable [phone] Allergies Allergen (clinical drug ingredient) Drug/Non Drug Allergy documented on EMR Reaction Allergy Type Onset Date Status sulfa drugs (uncoded) Unknown Allergy Active Parafon Forte DSC Unknown Drug Allergy Active REASON FOR VISIT Patient states she is here today for {}, Prescription visit, See t.e.: having LSP surgery with [place] on 04/02., FALL Medications Medication SIG (Take, Route, Frequency, Duration) Notes Start Date End Date Status Symbicort 160 mcg-4.5 mcg/inh 2 puffs inhaled 2 times a day Active sucralfate 1 g 1 tab(s) orally 4 ti mes a day (before meals and at bedtime); Duration: 30 day(s) 01/16/2024 Active Motrin IB 200 mg 1 tab orally every 6 hours, as needed Active omeprazole 20 mg 1 cap orally once a day Active Vitamin D3 2000 intl units as directed orally Active DULoxetine 30 mg 1 cap(s) orally once a day Active meloxicam 15 mg 1 tab orally once a day Active amLODIPine 5 mg 1 tab(s) orally once a day; Duration: 30 day(s) Active Centrum MultiGummies Women Active alendronate 70 mg 1 tab(s) orally once a week; Duration: 28 day(s) Active oxyCODONE 20 mg 1/2 - 1 tab orally Q 4-6H prn pain (max 3/day; hold within 4H of planned sleep) Active Albuterol (Eqv-ProAir HFA) 90 mcg/inh 2 puffs inhaled every 6 hours Active oxyCODONE 20 mg 1/2 - 1 tab orally Q 4-6H prn pain (max 3/day; hold within 4H of planned sleep) Active Social History Tobacco Use: Social History Observation Description Date Details (start date - stop date) Former Smoker NA - 08/10/2023 alcohol Question Answer Notes Did you have a drink containing alcohol in the p ast year? No Points 0 Interpretation Negative Tobacco use: Question Answer Notes : former smoker When did you stop smoking? 08/10/2023 Encounters Encounter Location Date Provider Diagnosis [facility] [address] [place], [place] [id number] 03/26/2024 Nitin Reyes Vertebrogenic low ba ck pain M54.51 ; Other chronic pain G89.29 and Other sleep disorders G47.8 Assessments Encounter Date Diagnosis (ICD Code) Assessment Notes Treatment Notes Treatment Clinical Notes Section Notes 03/26/2024 Vertebrogenic low back pain (ICD-10 - M54.51) Chronic axial lumbosacral spine pain. 03/26/2024 Other chronic pain (ICD-10 - G89.29) Patient reports significant symptom improvement with change to current pain medication. Plan to continue oral opioid medication management. 03/26/2024 Other sleep disorders (ICD-10 - G47.8) Patient has history of a sleep disorder with snoring and some hypersomnia. Plan to continue to restrict opioid use in relation to sleep for safety concerns. 03/26/2024 Other Plan Of Treatment Medication Medication Name Sig Start Date Stop Date Notes oxyCODONE 20 mg 1/2 - 1 tab orally Q 4-6H prn pain (max 3/day; hold within 4H of planned sleep) oxyCODONE 20 mg 1/2 - 1 tab orally Q 4-6H prn pain (max 3/day; hold within 4H of planned sleep) Treatment Notes Assessment Notes Vertebrogenic low back pain Chronic axia l lumbosacral spine pain. Other chronic pain Patient reports significant symptom improvement with change to current pain medication. Plan to continue oral opioid medication management. Other sleep disorders Patient has histor y of a sleep disorder with snoring and some hypersomnia. Plan to continue to restrict opioid use in relation to sleep for safety concerns. Progress Notes * Hayley LOTT LDOB:1960 (64 yo F)Acc No.[id number]:03/26/2024 Patient: Hayley LUCIO Provider: Jorge Reyes :1960 A ge:63 Y S ex:Female Date:03/26/2024 Address:[address] [place], [place] [id number] Pcp:Adama Zuñiag DO Subjective: * Chief Complaints: * 1 . Patient states she is here today for {}. 2. Prescription visit. 3. See t.e.: having LSP surgery with [place] on 04/02.. 4. FALL. * HPI: L umbar Spine: 63 year old female presents with c/o pain f or c hronic duration i n the bilateral lower back. This pain (R>L) is described as constant aching. This pain extends into the hips. The back pain is aggravated by mowing the yard, mopping, and standing to cook. This pain is somewhat alleviated with use of heat and by sitting down. c /o weakness i n the RLE. Denies : radiation of pain. Denies : tingling/numbness. Denies : injury:. Denies : previous surgery:. P revious Imaging/Studies: CT o f the L-spine on 05/21/20 and 01/05/12. X-rays o f the right hip on 05/21/23; of the L-spine on 04/20/20 and 05/28/12; of the shoulders on 11/27/19; of the left knee on 12/27/16. MRI o f the L-spine on 08/19/21 and 03/21/12; of the T-spine on 04/11/12. I nterventional: Interlaminar lumbar epidural steroid injection: L 5-S1 on 06/23/20 with longer term lower extremity improvement (a prior u pdated patient report). Radiofrequency nerve ablation: b ilateral low to mid lumbar on 09/27/20 with good benefit to include lower extremity improvement for ~ 7 months. P revious Therapy: Previous therapy: h eat therapy with some benefit; ice therapy with some benefit; topical agent therapy with some benefit; physical therapy with history of no benefit (2019 and again in 2020 with an exacerbation of pain caused by the physical therapist); home exercises / stretching therapy w ith history of some minimal benefit (initiated in 2019) and patient has reported doing rehab exercises for her hip post hip surgery; h istory of m assage therapy. Medication history: [place] 5/325 1-2, Q8H; Flexeril 10 mg TID; Naprosyn 500 mg BID; Dilaudid 4 mg; Vicoprofen (no benefit); Percocet (GI upset). M edications: OxyIR (oxycodone) 2 0 mg, 1/2 - 1 tab, orally, Q4-6H prn pain (max 3/day; hold within 4H of planned sleep), 28 days, 84, Refills 0. Notes: Prescriptions given (2) on 01/16/24. Patient reports * benefit, as evidenced by improved ability to *, with quantity * remaining and * prescription(s) remaining.Last fill date *. N on Compliance/Failure to Follow Treatment Agreement: Failure to secure medications/prescriptions: 1 (printed prescription). * Medical History: C hronic pain, Low back pain, Lumbar spondylosis, disc disease and spondylolisthesis, Spinal stenosis, lumbar, as per remote CT report, Sciatica, bilateral, Sacroiliitis, Piriformis syndrome, Hip pain, right, Greater trochanteric bursitis, bilateral, Knee pain, left, Joint pain, Osteoarthritis, Leg weakness, Asthma, Migraine syndrome, Allergic rhinitis, Chronic obstructive pulmonary disease, Hypersomnia, Eczema, Depression and anxiety, Osteoporosis, Gastroesophageal reflux disease, Blindness, left eye, Heart disease, Urinary incontinence, Skin lesion disorder that patient thinks might be lupus, Sleep disorder with snoring and some hypersomnia. * Surgical History: L eft eye surgery, 1963, Appendectomy, 1967, Tubal ligation, 1998, Hysterectomy, 2004, Cholecystectomy, 2015, Hip replacement, right, performed at [facility] by Dr. Magana, 10/10/23. * Hospitalization/Major Diagno stic Procedure: D enies Past Hospitalization. * Medications: T aking alendronate 70 mg tablet 1 tab(s) orally once a week , Taking amLODIPine 5 mg tablet 1 tab(s) orally once a day , Taking Centrum MultiGummies Women(multivitamin with minerals) , Taking DULoxetine 30 mg delayed release capsule 1 cap(s) orally once a day , Taking meloxicam 15 mg tablet 1 tab orally once a day , Taking oxyCODONE 20 mg tablet 1/2 - 1 tab orally Q4-6H prn pain (max 3/day; hold within 4H of planned sleep) , Taking sucralfate 1 g tablet 1 tab(s) orally 4 times a day (before meals and at bedtime) , Taking Albuterol (Eqv-ProAir HFA)(albuterol) 90 mcg/inh aerosol 2 puffs inhaled every 6 hours , Taking Motrin IB(ibuprofen) 200 mg tablet 1 tab orally every 6 hours, as needed , Taking omeprazole 20 mg delayed release capsule 1 cap orally once a day , Taking Symbicort(budesonide-formoterol) 160 mcg-4.5 mcg/inh aerosol 2 puffs inhaled 2 times a day , Taking Vitamin D3(cholecalciferol) 2000 intl units tablet as directed orally * Allergies: P arafon Forte DSC, sulfa drugs. Objective: Therapeutic Interventions: Assessment: * Assessment: 1. O ther chronic pain - G89.29 (Primary) 2 . V ertebrogenic low back pain - M54.51 3 . O ther sleep disorders - G47.8 Plan: * Treatment: 2. V ertebrogenic low back pain Notes: Chronic axial lumbosacral spine pain. 3. O ther sleep disorders Notes: Patient has history of a sleep disorder with snoring and some hypersomnia. Plan to continue to restrict opioid use in relation to sleep for safety concerns. 4. O thers Continue oxyCODONE tablet, 20 mg, 1/2 - 1 tab, orally, Q4-6H prn pain (max 3/day; hold within 4H of planned sleep), Refills 0; C ontinue oxyCODONE tablet, 20 mg, 1/2 - 1 tab, orally, Q4-6H prn pain (max 3/day; hold within 4H of planned sleep), Refills 0. * Procedure Codes: G 8427 DOC MEDS VERIFIED W/PT OR RE * Preventive Medicine: Counseling: S moking Counseling . C are Goal Follow Up Plan: BMI management provided Y es Above Normal BMI Follow-up D ietary management education, guidance, and counseling P ain Management: Follow-up Plan documented: Y es Pain Screenin ASA Status Classification: s core: P 3. * Images: * Electronic signature of Renny Reyes MD on 06/25/2025 at 10:33 AM CDT Sign off status: Pending * Provider: Jorge Reyes Date: 0 03/26/2024 Generated for Renan Teresa on: 0 06/25/2025 10:33 AM CDT History and Physical Notes * HPI (History of Present Illness) Category Sub-Category Detail Notes Category Not es Lumbar Spine injury: tingling/numbness pain in the bilateral low er back. This pain (R>L) is described as constant aching. This pain extends into the hips. The back pain is aggravated by mowing the yard, mopping, and standing to cook. This pain is somewhat alleviated with use of heat and by sitting down radiation of pain previous surgery: weakness in the RLE Medications OxyIR (oxycodone) 20 mg, 1/2 - 1 tab, orally, Q4-6H prn pain (max 3/day; hold within 4H of planned sleep), 28 days, 84, Refills 0. Notes: Prescriptions given (2) on 01/16/24. Patient reports * benefit, as evidenced by improved ability to *, with quantity * remaining and * prescription(s) remaining. Last fill date * Interventional Interlaminar lumbar epidural steroid injection: L5-S1 on 06/23/20 with longer term lower extremity improvement (a prior updated patient report) Radiofrequency nerve ablation: bilateral low to mid lumbar on 09/27/20 with good benefit to include lower extremity improvement for ~ 7 months Previous Therapy Previous therapy: heat therapy with some benefit; ice therapy with some benefit; topical agent therapy with some benefit; physical therapy with history of no benefit (2019 and again in 2020 with an exacerbation of pain caused by the physical therapist); home exercises / stretching therapy with history of some minimal benefit (initiated in 2019) and patient has reported doing rehab exercises for her hip post hip surgery; history of massage therapy Medication history: [place] 5/325 1-2, Q8H ; Flexeril 10 mg TID; Naprosyn 500 mg BID; Dilaudid 4 mg; Vicoprofen (no benefit); Percocet (GI upset) Previous Imaging/Studies MRI of the L-spine on 08/19/21 and 03/21/12; of the T- spine on 04/11/12 CT of the L-spine on and 01/05/12 X-rays of the right hip on 05/21/23; of the L-spine on 04/20/20 and 05/28/12; of the shoulders on 11/27/19; of the left knee on 12/27/16 Non Compliance/Failure to Follow Treatment Agreement Failure to secure medications/prescriptions: 08/19/20 (printed prescription)
[2025-06-25 10:27] VITALS: BP 143/90; PULSE 82; RESP 20; TEMP 36.4; O2SAT 96; BMI 33.3
--- OUTSIDE RECORDS SUMMARY | 2025-06-25 10:34 | XMS_ITS | Clinical Summary ---
Author Organization [facility] Administrative Offices Address [address] [place] [address] Care Team Providers Care Advanced Manufacturing Vice President Name Role Phone Adama Zuñiga Primary Care [...] on file Legal Sex Female 2:39 AM LAPELER Gender Identity Not on file Sexual Orientation Not on file Last Filed Vital Signs Vital Sign Reading Time Taken Comments Blood Pressure 124/74 09/14/2021 12:20 PM LAPELER Pulse 94 09/14/2021 12:20 PM LAPELER Temperature - - Respiratory Rate - - Oxygen Saturation 97% 09/14/2021 12:20 PM LAPELER Inhaled Oxygen Concentration - - Weight 71.7 kg (158 lb) 09/14/2021 12:20 PM LAPELER Height 157.5 cm (5' 2 ) 09/14/2021 12:20 PM LAPELER Body Mass Index 28.9 09/14/2021 12:20 PM LAPELER Plan of Treatment Health Maintenance Due Date [...] - 1-dose 75+ series) [id number] [place] [address] [employer] [id number] [id number] Care Teams Advanced Manufacturing Vice President Relationship Specialty Start Date End Date Adama Zuñiga DO [address] [id number] PCP - General Internal Medicine 08/19/21
--- OUTSIDE RECORDS SUMMARY | 2025-06-25 10:34 | XMS_ITS | Patient Health Record ---
Author Organization [facility] Address [address] [place] [address] Care Team Providers Care Top Collar Maker Name Role Phone Tarah Aquino Primary Care Provider Unavailab Frida Patel Unavailable [phone] Mohamud Boyle Unavailable [phone] Sophy Wood Unavailable [phone] Joseph Mcbride Unavailable [phone] Unavailable [phone] Naila Lee Unavailable [phone] Allergies Allergen (clinical drug ingredient) Drug/Non Drug Allergy documented on EMR Reaction Allergy Type Onset Date Status Parafon Forte DSC Unknown Drug Allergy Active montelukast Singulair Unknown Drug Allergy Activ e Substance with sulfonamide structure and antibacterial mechanism of action (substance) Sulfa Antibiotics Unknown Drug Allergy Active Results Component Value Reference Range Flag Notes CT L-Spine w/o Contrast incl Recon-47375 (Not yet reviewed by provider) Interpretation: Performing Lab: Notes/Report: [id number]&org=iSite CT L-Spine w/o Contrast incl Recon-05174 (Not yet reviewed by provider) Interpretation: Performing [...] Notes/Report: CT L-Spine w/o Contrast incl Recon Fluoro Needle For Placement - Non-Spine 30310 Reviewed date:12/09/2024 09:20:42 AM Interpretation: Performing Lab: Notes/Report: Urine Drug Screen (cup read) - 73631 Reviewed date:02/26/2025 09:24:01 AM Interpretation: Performing Lab: Notes/Report: OPI + Urine Drug Screen (cup read) - 30030 Reviewed date:06/04/2025 11:31:51 AM Interpretation: Performing Lab: Notes/Report: AMP - STEPHANI - BUP - BZO - MDMA - OPI - PCP - OXY - MTD - MAMP - zzzUrine Drug Screen (confir mation by instrument) - 85322 Reviewed date:11/25/2024 02:50:48 PM Interpretation: Performing Lab: Notes/Report: Urine Confirmation Panel (in strument) - 66073 Reviewed date:03/02/2025 03:09:28 PM Interpretation: Performing Lab: [...] the U.S. Food and Drug Administration. Pregabalin >48399 <225 ng/mL > This test was developed [...] the U.S. Food and Drug Administration. Urine Confirmation Panel (in strument) - 89433 Reviewed date:06/15/2025 02:11:51 PM Interpretation: Performing Lab: Notes/Report: 6-Acetylmorphine 0 [...] the U.S. Food and Drug Administration. EDDP 7 <75 ng/mL N This test was developed and its performance characteristics determined by [facility]. It has not been cleared or approved by the U.S. Food and Drug Administration. Fentanyl 0 <6 ng/mL N This test was developed and its performance characteristics determined by [facility]. It has not been cleared or approved by the U.S. Food and Drug Administration. Hydrocodone 0 <75 ng/mL N This test was developed and its performance characteristics determined by [facility]. It has not been cleared or approved by the U.S. Food and Drug Administration. Hydromorphone 0 <75 ng/mL N This test w as developed [...] the U.S. Food and Drug Administration. Methamphetamine 1 <75 ng/mL N This test was developed [...] the U.S. Food and Drug Administration. Norhydrocodone 0 <75 ng/mL N This test was [...] the U.S. Food and Drug Administration. Pregabalin >24278 <225 ng/mL > This test was developed and its performance characteristics determined by [facility]. It has not been cleared or approved by the U.S. Food and Drug Administration. Gabapentin 121 <225 ng/mL N This test was developed [...] by the U.S. Food and Drug Administration. Tox Results Reviewed date:03/02/2025 03:56:41 PM Interpretation: Performing Lab: Notes/Report: Tox Results Reviewed date:06/15/2025 03:43:14 PM Interpretation: Performing Lab: Notes/Report: Reason For Referral Reason ncv/emg RLE at [facility] r Diagnosis 1 Lumbar radiculopathy (M54.16) Referral Organization [facility] [place] Referring Provider First Name Sophy Referring Provider Last Name Israel Referring Provider Speciality Neurosurge ry Referral Priority Routine Reason PM in [place], e terra and treat Diagnosis 1 Lumbar radiculopathy (M54.16) Diagnosis 2 Fusion of spine, lum bosacral region (M43.27) Diagnosis 3 Spinal stenosis of l umbar region, unspecified whether neurogenic claudication present (M48.061) Diagnosis 4 Facet arthropathy, l umbar (M47.816) Referral Organization [facility] [place] Referring Provider First Name Sophy Referring Provider Last Alonso Wood Referring Provider Speciality Neurosurge ry Referral Priority Routine Reason eval and treat Diagnosis 1 Lumbar radiculopathy (M54.16) Diagnosis 2 Facet arthropathy, l umbar (M47.816) Diagnosis 3 Spinal stenosis of l umbar region, unspecified whether neurogenic claudication present (M48.061) Referral Organization [facility] [place] Referring Provider First Name Sophy Referring Provider Last Name Israel Referring Provider Speciality Neurosurge ry Referred Organization [facility] Referred Provider Magali Yoder Referred Address [address] [place] [id number], Referred Provider Specialty Pain Medicin e Referral [...] to exceed 1 per day Fill on 9-13-25 due to being closed 06/04/2025 08/10/2025 Active [...] Status Risk Notes Problem Chronic pain syndrome (884279834) Chronic pain syndrome (G89.4) Active confirmed Problem Lumbosacral arthrodesis (98665020) Fusion of spine, lumbosacral region (M43.27) Active confirmed Problem Lumbar radiculopathy (294041741) Lumbar radiculopathy (M54.16) Active confirmed Problem Spinal stenosis of lumbar region (93340501) Spinal stenosis of lumbar region, unspecified whether neurogenic claudication present (M48.061) Active confirmed Problem Lumbar spondylosis (161145584) Lumbar spondylosis (M47.816) Active confirmed Problem Solitary sacroiliitis (878755666) Sacroiliac inflammation (M46.1) Active confirmed Problem Acquired spondylolisthesis (524206191) Spondylolisthesis at L4-L5 level (M43.16) Active confirmed Problem Acquired spondylolisthesis () Spondylolisthesis at L5-S1 level (M43.17) Active confirmed Problem Acquired spondylolisthesis (690675423) Acquired spondylolisthesis of lumbosacral region (M43.17) Active confirmed Problem Arthropathy of lumbar facet joint (disorder) (795383192) Facet arthropathy, lumbar (M47.816) Active confirmed Problem Lumbar post-laminectomy syndrome (924821652) Lumbar post-laminectomy syndrome (M96.1) Active confirmed Problem Abnormal gait (97800916) Abnormality of gait and mobility (R26.9) Active confirmed Problem Lumbar spinal stenosis (17064508) Lumbar stenosis (M48.061) Active confirmed Problem Lumbosacral spondylosis (316175618) Lumbosacral spondylosis (M47.817) Active confirmed Problem Acquired spondylolisthesis (748050651) Anterolisthesis of lumbar spine (M43.16) Active confirmed [...] imaging gabe dance (CT or fluoroscopy) - 21424 12/09/2024 12/09/2024 N/A Facet Inj. / MBB Lumbar/Sacr al, 2 levels - 37186, 37224 01/27/2025 01/27/2025 N/A Facet Inj. / MBB Lumbar/Sacr al, 2 levels - 05452, 74992 02/10/2025 02/10/2025 N/A Neurotomy Lumbar/Sacral, 2 o r more levels - 32191, 02793 03/17/2025 03/17/2025 N/A Neurotomy Lumbar/Sacral, 2 o r more levels - 65951, 01658 04/14/2025 04/14/2025 N/A Encounters Encounter Location Date Provider Diagnosis [facility] [address] [address] 09/02/2024 Sophy Wood Lumbar radiculopathy M54.16 ; Facet arthropathy, lumbar M47.816 and Arthrodesis status Z98.1 [facility] [address] [address] 09/30/2024 Sophy Wood Lumbar radiculopathy M54.16 ; Facet arthropathy, lumbar M47.816 and Arthrodesis status Z98.1 [facility] [address] [address] 11/19/[address] Chronic pain syndrome G89.4 ; Lumbar spondylosis M47.816 ; Sacroiliac inflammation M46.1 ; Lumbar post-laminectomy syndrome M96.1 ; Abnormality of gait and mobility R26.9 and Analgesic use Z79.899 [facility] [address] [facility] [place] [address] 12/09/[address] Sacroiliac inflammation M46.1 [facility] [address] [address] 01/07/[address] Chronic pain syndrome G89.4 ; Lumbar spondylosis M47.816 ; Sacroiliac inflammation M46.1 ; Lumbar post-laminectomy syndrome M96.1 ; Abnormality of gait and mobility R26.9 and Analgesic use Z79.899 [facility] [address] [facility] [place] [address] 01/27/[address] Lumbar spondylosis M47.816 [facility] [address] [facility] [place] [address] 02/10/[address] Lumbar spondylosis M47.816 [facility] [place] [address] [place] [address] 02/26/2025 Frida Martin Chronic pain syndrome G89.4 ; Lumbar spondylosis M47.816 ; Sacroiliac inflammation M46.1 ; Lumbar post-laminectomy syndrome M96.1 ; Abnormality of gait and mobility R26.9 ; Lumbosacral spondylosis M47.817 ; Analgesic use Z79.899 and 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 Z79.891 [facility] [address] [facility] [place] [address] 03/17/[address] Lumbosacral spondylosis M47.817 [facility] [address] [facility] [place] [address] 04/14/[address] Lumbosacral spondylosis M47.817 [facility] [place] [address] [place] [place] [address] 06/04/2025 Frida Martin Chronic pain syndrome G89.4 ; Lumbar spondylosis M47.816 ; Sacroiliac inflammation M46.1 ; Lumbar post-laminectomy syndrome M96.1 ; Abnormality of gait and mobility R26.9 ; Lumbosacral spondylosis M47.817 ; group home (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 Z79.891 and Analgesic use Z79.899 [facility] [place] [address] [place] [address] 07/02/2024 Joseph Mcbride [facility] [place] [address] [place] [address] 07/14/2024 Joseph Mcbride [facility] [place] [address] [place] [address] 07/16/2024 Sophy Wood [facility] [place] [address] [place] [address] 09/15/2024 Joseph Mcbride [facility] [place] [address] [place] [place] [address] 11/20/[address] Chronic pain syndrome G89.4 [facility] [address] [place] [address] 12/10/[address] [facility] [place] [address] [place] [address] 12/18/2024 Sophy Wood [facility] [place] [address] [place] [place] [address] 01/14/[address] Chronic pain syndrome G89.4 and Lumbar stenosis M48.061 [facility] [address] [place] [address] 02/05/2025 Naila [facility] [address] [place] [address] 02/05/2025 [facility] [place] [address] [place] [place] [address] 02/11/[address] Lumbar stenosis M48.061 [facility] [place] [address] [place] [place] [address] 02/26/[address] Lumbar radiculopathy M54.16 [facility] [place] [address] [place] [address] 06/02/2025 Mohamud Boyle [facility] [place] [address] [place] [place] [address] 06/04/[address] Lumbosacral spondylosis M47.817 Assessments [...] effects are noted. Last UDS and [place] HOSPICE NURSE PRACTITIONER reviewed today. Patient is advised that best [...] effects are noted. Last UDS and [place] HOSPICE NURSE PRACTITIONER reviewed today. 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 testing will be done in . 09/30/2024 Other plan to f/u on an as needed basis. refer to PM. continue f/u with pcp. 11/19/2024 Other Deep Mcwilliams, stuart scribing for Dr. [address]on [address]. I, Dr. [address]on Street, personally performed the services described in this documentation , as scribed by Deep Cerda, and it is both accurate and complete. 01/07/2025 Other I, Deep Cerda, am scribing for Dr. [address]on [address]. I, Dr. Pelon Street, personally performed the services described in this documentation, as scribed by Deep Cerda, and it is both accurate and complete. Plan Of Treatment Pending Test Test Name Order Date Prothrombin Time 10300 03/05/2024 Prothrombin Time 01673 03/25/2024 ABORh 77807, 00917 03/05/2024 ABORh 25977, 94760 03/25/2024 Antibody Screen 97561 03/25/2024 Antibody Screen 04913 03/05/2024 Basic Metabolic Panel (BMP) 81410 2023 Basic Metabolic Panel (BMP) 60320 2023 Basic Metabolic Panel (BMP) 54272 2023 CBC w\ Auto Diff 63696 04/03/2024 CBC w\ Auto Diff 76752 03/25/2024 CBC w\ Auto Diff 74690 03/05/2024 Partial Thromboplastin Time 12443 2023 Partial Thromboplastin Time 68704 2023 Chest PA/Lat-80184 03/25/2024 Chest PA/Lat-94493 03/05/2024 CT L-Spine w/o Contrast incl Recon-55236 09/02/2024 CT L-Spine w/o Contrast incl Recon-62721 09/15/2024 Lumbosacral Spine AP/Lat-31695 XR Outside CD 08/14/2023 Electrocardiogram 12 Lead Tracing-48614 03/05/2024 BB ABORH-82535,88134 03/25/2024 zzzFluoroscopy 04/02/2024 zzzMRI Outside CD 08/09/2023 Schedule Confirmation 09/15/2024 Schedule Confirmation 09/15/2024 Schedule Confirmation 09/15/2024 Schedule Confirmation 09/15/2024 IH Lumbosacral Spine AP/Lat - 17094 /0 02/2024 IH Lumbosacral Spine AP/Lat - 10623 06/0 02/2024 Future Test Test Name Order Date CBC w\ Auto Diff 84690 04/16/2024 Sedimentation Rate 28249 04/16/2024 CRP 90558 04/16/2024 Next Appt Details Provider Name:Pelon Street, 08/05/2025 01:00:00 PM, [address] [place], [address], Insurance Providers Payer Name Payer Address Payer Phone Subscriber Number Group Number Insured Name Patient Relationship to Insured Coverage Start Date Coverage End Date [employer] Medicare Replacement [address] [address] [place] [address] [id number] SARATH LOTT Self - patient is the insured [place] Medicaid [address] [place] [address] [id number] SARATH LOTT Self - patient is the insured [facility] [address] [place] [address] [id number] SARATH LOTT Self - patient is the insured [place] Medicare [address] [address] [place] [address] [id number] SARATH LOTT Self - patient is the insured Medical (General) History Medical History History ICD Code Depression Back Pain acid reflux asthma insomnia COPD Headache, migraine anxiety chronic cough Surgical History Surgery Date(Month/Year) eye appendectomy hysterectomy gall bladder removal hip decompression lumbar fusion 03/2024
--- OUTSIDE RECORDS SUMMARY | 2025-06-25 10:34 | XMS_ITS | Patient Health Record ---
Author Organization [facility] Address [address] [place], [place] [id number] Care Team Providers Care Supervisor Paper Machine Name Role Phone Zara Adama CARBALLO Primary Care Provider Shabnam Reyes MD, Nitin Unavailable [phone] Allergies Allergen (clinical drug ingredient) Drug/Non Drug [...] W/U Status Risk Notes Problem Solitary sacroiliitis (801235293) Sacroiliitis, not elsewhere classified (M46.1) Active confirmed Problem Low back pain (746794872) Low back pain (M54.5) Active confirmed Problem Lumbosacral spondylosis without myelopathy (47094457) Spondylosis without myelopathy or radiculopathy, lumbar region (M47.816) Active confirmed Problem High risk drug monitoring status (242674920) [facility] (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 (Z79.891) Active confirmed Problem Anxiety disorder (880926714) Other specified anxiety disorders (F41.8) Active confirmed Problem Sleep disorder (97712103) Other sleep disorders (G47.8) Active confirmed Problem Chronic pain (61679025) Other chronic pain (G89.29) Active confirmed Problem Acquired spondylolisthesis (752171175) Spondylolisthesis , lumbosacral region (M43.17) Active confirmed Problem Radiculopathy due to lumbar intervertebral disc disorder (890674565244454) Intervertebral disc disorders with radiculopathy, lumbar region (M51.16) Active confirmed Problem Long-term current use of drug therapy (013321367) Other jail (current) drug therapy (Z79.899) Active confirmed Problem Muscle pain (19748517) Myalgia, other site (M79.18) Active confirmed Problem Pain in lumbar spine (766139347) Vertebrogenic low back pain (M54.51) Active confirmed Plan Of Treatment No Information Insurance Providers Payer Name Payer Address Payer Phone Subscriber Number Group Number Insured Name Patient Relationship to Insured Coverage Start Date Coverage End Date [employer] Medicare Part B Claims Department [address] [address] [place] [address] [id number] Hayley Chun Self - patient is the insured [employer] [address] [place] [address] [phone] [id number] Hayley Chun Self - patient is the [...] 1967 Tubal ligation, 1998 Hysterectomy, 2004 Cholecystectomy, 2014 Hip replacement, right, performed at [facility] by Dr. Magana, 10/10/23
--- NOTE | 2025-06-25 10:51 | CT_ITS ---
WS: [id number] CT CERVICAL TRAUMA TECHNIQUE: Noncontrast CT of the cervical spine with coronal and sagittal reformatted images. CLINICAL INFORMATION: worsening pain COMPARISON: MRI 06/08/2025 DLP: 162.[address] scans at [facility] use at least one of these dose optimization techniques: automated exposure control; mA and/or kV adjustment per patient size (includes targeted exams where dose is matched to clinical indication); or iterative reconstruction. FINDINGS: Straightening of the normal cervical lordosis. Normal craniocervical junction. Normal C1-C2 articulation. Dens is normal in appearance. Normal occipital condyles. Normal C1 ring. No evidence of acute fracture or dislocation. Disc osteophyte complex C5-C6 with mild central canal stenosis and moderate LEFT bony foraminal narrowing. Normal prevertebral soft tissues. Mastoids air cells are well aerated. CT/CT cervical spin wo con* 57705 IMPRESSION: 1. No evidence of acute fracture or dislocation. 2. Disc osteophyte complex worse at C5-6 with mild central canal stenosis and moderate LEFT bony foraminal narrowing. This appears stable compared to the maninder or MRI 06/08/2025 considering differences in technique.
--- NOTE | 2025-06-25 10:53 | W.ED.NECK ---
HPI - Neck Pain/Injury General: Chief Complaint: Neck Pain/Injury Stated Complaint: pain in the neck causing breathing promblems Time Seen by Provider: 06/25/25 10:45 History of Present Illness: 64-year-old female with a history of chronic pain syndrome and low back pain, fibromyalgia, GERD, migraines, and COPD who presents emergency room with acute on chronic neck pain. She been having some issues with her neck and had a recent CT scan that showed some degenerative changes. No focal motor deficits. She does report some tingling in her arms bilaterally. No sensory deficits. Related Data Home Medications ?Medication ?Instructions ?Recorded ?Confirmed cholecalciferol (vitamin D3) 50 50 mcg PO DAILY 10/24/24 06/25/25 mcg (2,000 unit) tablet (Vitamin D3) wircajr-mvchaylkm-sakoga-zinc 1 tab PO DAILY 06/23/25 06/25/25 tablet albuterol sulfate 90 mcg/actuation 2 puff inhalation QID PRN 06/25/25 06/25/25 aerosol inhaler Shortness Of Breath budesonide-formoterol HFA 160 2 puff inhalation Q12H 06/25/25 06/25/25 mcg-4.5 mcg/actuation aerosol inhaler (Symbicort) clonidine HCl 0.1 mg tablet See Rx Instructions .Route 06/25/25 06/25/25 .COMPLEX PRN bp diclofenac sodium 1 % topical gel 4 g topical QID PRN Pain 06/25/25 06/25/25 (Voltaren Arthritis Pain) diclofenac sodium 75 mg 75 mg PO BID 06/25/25 06/25/25 tablet,delayed release duloxetine 60 mg capsule,delayed 60 mg PO QAM 06/25/25 06/25/25 release Previous Rx's ?Medication ?Instructions ?Recorded nebulizer #1 ea 09/16/24 quad tip cane #1 ea 10/10/24 hydrocodone 5 mg-acetaminophen 325 1 tab PO .q 4-6 PRN pain #20 tabs 02/23/25 mg tablet albuterol sulfate 2.5 mg/3 mL 2.5 mg (3 mL) inhalation QID PRN 02/26/25 (0.083 %) solution for nebulization shortness of breath or wheezing #75 mL pantoprazole 40 mg tablet,delayed 40 mg PO DAILY #90 tabs 04/22/25 release pregabalin 100 mg capsule (Lyrica) 100 mg PO BID #180 caps 05/12/25 prednisone 20 mg tablet See Rx Instructions PO .COMPLEX 06/04/25 PRN joint pain flare #30 tabs amlodipine 10 mg tablet 10 mg PO DAILY #90 tabs 06/10/25 dexamethasone 6 mg tablet 6 mg PO DAILY 5 days #5 tabs 06/25/25 diclofenac sodium 50 mg 50 mg PO BID PRN pain #14 tabs 06/25/25 tablet,delayed release hydrocodone 5 mg-acetaminophen 325 1 tab PO Q8H PRN pain #14 tabs 06/25/25 mg tablet Allergies Allergy/AdvReac Type Severity Reaction Status Date / Time montelukast (From Singulair) Allergy Severe tongue Verified 06/23/25 11:21 swelling chlorzoxazone (From Parafon Allergy ALGY-Rash Verified 06/23/25 11:21 Forte DSC) Sulfa (Sulfonamide Allergy ALGY-Hives Verified 06/23/25 11:21 Antibiotics) leflunomide AdvReac Intermediate ADR-Hyperte Verified 06/23/25 11:21 nsion Review of Systems Narrative: Constitutional symptoms: Negative except as documented in HPI. Skin symptoms: Negative except as documented in HPI. Eye symptoms: Negative except as documented in HPI. ENMT symptoms: Negative except as documented in HPI. Respiratory symptoms: Negative except as documented in HPI. Cardiovascular symptoms: Negative except as documented in HPI. Gastrointestinal symptoms: Negative except as documented in HPI. Genitourinary symptoms: Negative except as documented in HPI. Musculoskeletal symptoms: Negative except as documented in HPI. Neurologic symptoms: Negative except as documented in HPI. Psychiatric symptoms: Negative except as documented in HPI. Endocrine symptoms: Negative except as documented in HPI. PFSH ED PFSH: Medical History (Updated 06/25/25 @ 12:41 by Anaya Lord MD) Immunization counseling High risk medication use Seronegative rheumatoid arthritis of both hands Fibromyalgia Polyarthralgia Hypertension Tubular adenoma of colon Tobacco use High risk for hip fracture Osteopenia GERD (gastroesophageal reflux disease) Skin rash Degenerative joint disease (DJD) of lumbar spine Osteoarthritis, generalized Migraines COPD (chronic obstructive pulmonary disease) Asthma Joint pain Surgical History History of hip surgery right Hx of eye surgery History of hysterectomy with bilateral oophorectomy History of appendectomy History of cholecystectomy Family History Mother Diabetes Cancer Dementia Father Diabetes Cancer Brother Diabetes Denies family history of CAD (coronary artery disease) Clotting disorder Hyperlipidemia Psychiatric illness Chronic kidney disease (CKD) Suicide Anesthesia complication Bleeding disorder Family history of premature coronary artery disease Lung disease Hypertension Stroke Social History Smoking and tobacco/nicotine status: never used tobacco/nicotine Alcohol intake: never Substance/Drug Use: never Lives independently: Yes Household members: spouse Marital status: Current occupational status: employed 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 Skin: warm and dry Head: Normocephalic Neck: Trachea midline. Tenderness at the base of her neck over the vertebra. Limitation in range of motion secondary to pain. Eye: Extraocular movements are intact. Ears, nose, mouth and throat: Oral mucosa moist Respiratory: Respirations are non-labored Musculoskeletal: Normal ROM Gastrointestinal: Abdomen does not appear distended Neurological: Alert and oriented, No focal neurological deficit observed. Psychiatric: Cooperative, appropriate mood & affect. Course Vital Signs: Vital signs: Vital Signs Temperature 97.6 F 06/25/25 10:27 Pulse Rate 82 06/25/25 10:27 Respiratory Rate 20 H 06/25/25 10:27 Blood Pressure 117/75 06/25/25 12:30 Pulse Oximetry 99 06/25/25 12:30 Oxygen Delivery Me thod Room Air 06/25/25 12:30 MDM - Neck Pain/Injury Medical Decision Making Medical decision making: Differential diagnosis including but not limited to and based on the above HPI, review of systems and physical exam: Acute worsening of chronic neck pain. We will do a CT scan to assure there is not been some sort of fracture or other abnormality. Will also try to treat her pain. Orders placed to evaluate differential diagnosis based on the above differential, HPI and physical exam CT of the C-spine: No acute changes. Stable degenerative changes. This was reviewed and interpreted by myself the emergency room physician. I also reviewed the radiology report. I reviewed the patient's medical record. I reviewed Dr. Bowen's recent clinic note. I have discussed having low back surgery. There was no discussion of her neck pain at that time. 1. No acute cervical spine fracture. 2. Normal signal within the cord. 3. Degenerative disc disease at C5-6. Bilateral foraminal disc osteophyte complexes at C5-6 resulting in moderate LEFT and mild RIGHT foraminal stenosis and mild central stenosis. 4. Increase in kyphosis of the upper thoracic spine. Reexamination: Pain is improved some. Movement seems to be improved some. No focal motor deficits or sensory deficits. No increased work of breathing. Assessment and plan: Neck pain - Discharged home - Discussed plan with patient. Answered any questions. - Evaluation and treatment of this problem were appropriate in the emergency setting. Lab Data Radiology Impressions Cervical Spine CT 06/25/25 10:51 IMPRESSION: 1. No evidence of acute fracture or dislocation. 2. Disc osteophyte complex worse at C5-6 with mild central canal stenosis and moderate LEFT bony foraminal narrowing. This appears stable compared to the prior MRI 06/08/2025 considering differences in technique. All radiology interpretation(s) finalized by discharge Discharge Plan Discharge Patient Disposition: Home Clinical Impression: Neck pain Condition: Stable Prescriptions: New hydrocodone-acetaminophen 5-325 mg tablet 1 tab PO Q8H PRN (Reason: pain) Qty: 14 0RF Rx Instructions: Take 1/2 to 1 tab every 8 hours as needed for pain dexamethasone 6 mg tablet 6 mg PO DAILY 5 Days Qty: 5 0RF diclofenac sodium 50 mg tablet,delayed release (DR/EC) 50 mg PO BID PRN (Reason: pain) Qty: 14 0RF No Action pregabalin [Lyrica] 100 mg capsule 100 mg PO BID Qty: 180 1RF pantoprazole 40 mg tablet,delayed release (DR/EC) 40 mg PO DAILY Qty: 90 0RF amlodipine 10 mg tablet 10 mg PO DAILY Qty: 90 0RF kbzuetz-yqhvzwwsw-sgikdp-zinc Tablet 1 tab PO DAILY (DME) nebulizer See Rx Instructions .Route .MEDSUPPLY Qty: 1 0RF Rx Instructions: As directed (DME) quad tip cane See Rx Instructions .Route .MEDSUPPLY Qty: 1 0RF Rx Instructions: As directed albuterol sulfate 2.5 mg /3 mL (0.083 %) solution for nebulization 2.5 mg inhalation QID PRN (Reason: shortness of breath or wheezing) Qty: 75 0RF prednisone 20 mg tablet See Rx Instructions PO .COMPLEX PRN (Reason: joint pain flare) Qty: 30 1RF Rx Instructions: Take 1 or 2 tablets by mouth daily for up to 7 days as needed for arthritis flare. hydrocodone-acetaminophen 5-325 mg tablet 1 tab PO .q 4-6 PRN (Reason: pain) Qty: 20 0RF cholecalciferol (vitamin D3) [Vitamin D3] 50 mcg (2,000 unit) Tablet 50 mcg PO DAILY clonidine HCl 0.1 mg tablet See Rx Instructions .ROUTE .COMPLEX PRN (Reason: bp) Rx Instructions: Take 0.1 mg by mouth daily as needed ;For Systolic >185 diastolic >100. If you are needing this more than once a day you need to follow with your primary care provider. diclofenac sodium 75 mg tablet,delayed release (DR/EC) 75 mg PO BID albuterol sulfate 90 mcg/actuation HFA aerosol inhaler 2 puff inhalation QID PRN (Reason: Shortness Of Breath) duloxetine 60 mg capsule,delayed release(DR/EC) 60 mg PO QAM budesonide-formoterol [Symbicort] 160-4.5 mcg/actuation HFA aerosol inhaler 2 puff inhalation Q12H diclofenac sodium [Voltaren Arthritis Pain] 1 % gel 4 g topical QID PRN (Reason: Pain) Rx Instructions: apply to single knee, ankle, foot; for foot includes sole/toes/top of foot Discharge Orders: Discharge ED (Routine); Ordered 06/25/25 Ordered By: Anaya Lord Referrals: Tarah Aquino MD [Primary Care Provider, Family Practice] Discharge Diet: Usual diet Discharge Activity: Increase activity as tolerated Patient Instructions: Opioid Safety, Pain Management, Patient Portal & Leticia Instructions Activity Restrictions/Additional Instructions: Thank you for choosing [facility] for your healthcare needs today. You have been screened and evaluated and felt safe for discharge. Health conditions do change or evolve sometimes and as such it is important that you follow up with your Primary Doctor to be re checked, 3-5 days is a general good time frame for follow up. You are always welcome to return to the ED for re assessment if your symptoms are worsening or you have new concerns Print Language: [place] Coding Level of Care Code ED Sql Data Architect for Nabila Westbrook
[2025-06-25] MEDS: orphenadrine 30 mg/mL Inj 2 mL 60 MG IVP (11:08)
[2025-06-25 11:11] VITALS: BP 123/94; O2SAT 95
[2025-06-25 12:02] VITALS: BP 123/86; O2SAT 94
[2025-06-25 12:30] VITALS: BP 117/75; O2SAT 99
[2025-06-25] MEDS: HYDROcodone-acetaminophen 10-325 mg Tablet 1 TAB PO (12:51)
[2025-06-25 12:54] VITALS: BP 117/75; PULSE 81; RESP 16; O2SAT 96
== END 2025-06-25 12:55 | disposition home or self-care (01) ==
PROVIDERS: Emergency Provider Emergency Medicine; PCP Family Medicine
DX: M54.2 Cervicalgia (principal); I10 Essential (primary) hypertension; J44.9 Chronic obstructive pulmonary disease, unspecified
CPT/HCPCS: 72125; 96374; 96375; 99285; J1885; J2360; J9999

== ENCOUNTER → 2025-07-02 15:18 | Outpatient (BNVA) | payer MEDICARE, MEDICAID, SELFPAY | PROVIDERS: PCP Family Medicine; Visit Provider Orthopaedic Surgery | DX: M54.2 Cervicalgia (principal); M48.02 Spinal stenosis, cervical region; M99.61 Osseous and subluxation stenosis of intervertebral foramina of cervical region | CPT/HCPCS: 72050; 99213 ==

== ENCOUNTER → 2025-08-14 09:52 | Outpatient (BNVA) | payer MEDICARE, MEDICAID, SELFPAY | PROVIDERS: PCP Family Medicine; Visit Provider Family Medicine | DX: R60.9 Edema, unspecified (principal); I10 Essential (primary) hypertension | CPT/HCPCS: 80053; 83880; 84443 ==

== ENCOUNTER → 2025-08-25 10:43 | Outpatient (BNVA) | payer MEDICARE, MEDICAID, SELFPAY | PROVIDERS: PCP Family Medicine; Visit Provider Orthopaedic Surgery | DX: Z98.890 Other specified postprocedural states (principal); Z48.89 Encounter for other specified surgical aftercare | CPT/HCPCS: 99024 ==

== ENCOUNTER 2025-08-27 12:37 | Outpatient (CLI) | payer MEDICARE, MEDICAID, SELFPAY ==
--- NOTE | 2025-08-27 13:30 | XR_ITS ---
WS: [id number] DEXA (DUAL ENERGY X-RAY ABSORPTIOMETRY) Bone mineral density was performed using a [employer] machine. HISTORY: osteoporosis screening COMPARISON: None available. Left forearm BMD: 0.703 g/cm2. T score: -2.0 Z score: -0.5 Total hip BMD: Left: 0.844 (g/cm2). T score: -1.3 (no units) Z score: -0.5 (no units) 10 year probability of a major osteoporotic fracture is 21.1%. Compared to the prior study from 06/19/2022. LEFT hip bone mineral density has increased by 0.8%. XR/XR DEXA axial skeleton* [id number] IMPRESSION: OSTEOPENIA based upon the WHO classification for females. No significant change in bone mineral density within the LEFT hip since the maninder or study.
--- NOTE | 2025-08-27 14:00 | MM_ITS ---
WS: [id number] BILATERAL SCREENING DIGITAL TOMOSYNTHESIS MAMMOGRAM WITH CAD HISTORY: breast cancer screening COMPARISON: 07/26/2022, 06/17/2019 Bilateral CC and MLO views with tomosynthesis and synthetic mammography submitted. Computer aided detection analyzed. Breast composition: There are scattered areas of fibroglandular density. No suspicious masses, microcalcifications or architectural distortion. Benign calcifications in each breast. MM/MM scr BI tomosynthesis [id number] IMPRESSION: BI-RADS: 2 - Benign. FOLLOW UP: 1 Year Follow-up
== END 2025-08-27 12:38 | disposition home or self-care (01) ==
PROVIDERS: PCP Family Medicine; Visit Provider Family Medicine
DX: Z12.31 Encounter for screening mammogram for malignant neoplasm of breast (principal); Z13.820 Encounter for screening for osteoporosis; Z78.0 Asymptomatic menopausal state; R92.323 Mammographic fibroglandular density, bilateral breasts; R92.1 Mammographic calcification found on diagnostic imaging of breast; M85.88 Other specified disorders of bone density and structure, other site
CPT/HCPCS: 77063; 77067; 77080

== ENCOUNTER → 2025-09-01 13:39 | Outpatient (BNVA) | payer MEDICARE, MEDICAID, SELFPAY | PROVIDERS: PCP Family Medicine; Visit Provider Orthopaedic Surgery | DX: Z98.890 Other specified postprocedural states (principal); M25.559 Pain in unspecified hip; Z48.89 Encounter for other specified surgical aftercare | CPT/HCPCS: 72190; 99024 ==

== ENCOUNTER → 2025-09-29 11:25 | Outpatient (BNVA) | payer MEDICARE, MEDICAID, SELFPAY | PROVIDERS: PCP Family Medicine; Visit Provider Internal Medicine Rheumatology | DX: M06.041 Rheumatoid arthritis without rheumatoid factor, right hand (principal); M06.042 Rheumatoid arthritis without rheumatoid factor, left hand; M47.816 Spondylosis without myelopathy or radiculopathy, lumbar region; M15.9 Polyosteoarthritis, unspecified | CPT/HCPCS: 80076; 82565; 85025; 85651; 86140; 99214 ==

== ENCOUNTER → 2025-09-30 12:17 | Outpatient (BNVA) | payer MEDICARE, MEDICAID, SELFPAY | PROVIDERS: PCP Family Medicine; Visit Provider Family Medicine | DX: I10 Essential (primary) hypertension (principal); N17.9 Acute kidney failure, unspecified; R60.0 Localized edema | CPT/HCPCS: 80048; 83880 ==

== ENCOUNTER 2025-10-03 22:56 | Emergency (ER) | payer MEDICARE, MEDICAID, SELFPAY ==
[2025-10-03 23:00] VITALS: BP 126/84; PULSE 77; RESP 20; TEMP 36.4; O2SAT 91; BMI 34.4
--- OUTSIDE RECORDS SUMMARY | 2025-10-03 23:05 | XMS_ITS | Clinical Summary ---
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 Gender Identity Not on file Sexual Orientation Not on file Last Filed Vital Signs Vital Sign Reading Time Taken Comments Blood Pressure 124/74 09/14/2021 12:20 PM SPECTROSCOPIST Pulse 94 09/14/2021 12:20 PM SPECTROSCOPIST Temperature - - Respiratory Rate - - Oxygen Saturation 97% 09/14/2021 12:20 PM SPECTROSCOPIST Inhaled Oxygen Concentration - - Weight 71.7 kg (158 lb) 09/14/2021 12:20 PM SPECTROSCOPIST Height 157.5 cm (5' 2 ) 09/14/2021 12:20 PM SPECTROSCOPIST Body Mass Index 28.9 09/14/2021 12:20 PM SPECTROSCOPIST Plan of Treatment Health Maintenance Due Date [...] - 1-dose 75+ series) 2033 [id number] [place] [address] [employer] [id number] [address] [id number] Care Teams Dietetics Professor Relationship Specialty Start Date End Date Adama Zuñiga DO [address] [facility] [address] [place] [address] PCP - General Internal Medicine 08/19/21
--- NOTE | 2025-10-03 23:15 | ECG_ITS ---
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 Measurements Intervals [place] Rate: 85 P: 67 MD: 141 QRS: 34 QRSD: 92 T: 50 QT: 386 QTc: 461 Interpretive Statements SINUS RHYTHM WITH FREQUENT SUPRAVENTRICULAR PREMATURE COMPLEXES ABNORMAL RHYTHM ECG Compared to ECG 06/15/2025 15:21:29 Myocardial infarct finding no longer present Electronically Signed On 10-07-2025 22:19:54 RHINOLOGIST by Dre Galloway M.D. [email or web address]
[2025-10-03 23:24] VITALS: BP 116/88; PULSE 85; RESP 17; O2SAT 100
[2025-10-03 23:48] VITALS: BP 135/85; PULSE 81; RESP 18; O2SAT 91
--- NOTE | 2025-10-03 23:50 | XRR_ITS ---
PROCEDURE INFORMATION: Exam: XR Chest Exam date and time: 10/04/2025 12:20 AM Age: 64 years old Clinical indication: Shortness of breath TECHNIQUE: Imaging protocol: Radiologic exam of the chest. Views: 1 view. COMPARISON: CT chest abdpel w/*[id number] 06/15/2025 3:26 PM FINDINGS: Lungs: Subsegmental streaky opacities in the left lung base. Slight hazy opacities in the right lung base. Pleural spaces: No pneumothorax. No pleural effusion. Heart/Mediastinum: Unremarkable. No cardiomegaly. Bones/joints: Unchanged sclerotic lesion in the proximal right humerus. XR/XR chest 1V portable [id number] IMPRESSION: Streaky opacities in the left lung base and slight hazy opacities in the right lung base. Differential includes atelectasis, atypical infectious process and/or aspiration. Recommend clinical correlation.
--- NOTE | 2025-10-03 23:53 | ED_ITS ---
HPI - SOB/Dyspnea 2 General: Chief Complaint: Shortness of Breath/Dyspnea Stated Complaint: holding too much fluid. irreg heartbeat. Time Seen by Provider: 10/03/25 23:23 History of Present Illness: HPI Narrative: Patient is a 64-year-old female presenting with shortness of breath and persistent bilateral lower extremity edema. She reports that she was previously prescribed Lasix for edema but was recently taken off this medication. Her amlodipine was also discontinued, reportedly due to pending blood tests scheduled for Sunday. Despite wearing compression stockings (20-30 mmHg), she continues to experience significant lower extremity swelling that does not improve with elevation. The patient reports a new onset of irregular heartbeat detected on her home blood pressure monitor this evening, which she confirmed by manually palpating her pulse and noting pauses. She describes mild chest discomfort with a burning sensation. Patient also reports a mild cough productive of small amounts of phlegm. She denies fever. She stopped taking her diuretic as of yesterday and reports increased water intake. The patient is not on home oxygen therapy. Related Data Home Medications ?Medication ?Instructions ?Recorded ?Confirmed cholecalciferol (vitamin D3) 50 50 mcg PO DAILY 09/30/25 mcg (2,000 unit) tablet (Vitamin D3) fizatqf-wnbdmnwmo-rukmkg-zinc 1 tab PO DAILY 06/23/25 09/30/25 tablet clonidine HCl 0.1 mg tablet 0.1 mg PO PRN PRN bp 06/2509/30/25 diclofenac sodium 1 % topical gel 4 g topical QID PRN Pain 06/25/25 09/30/25 (Voltaren Arthritis Pain) budesonide-formoterol HFA 160 2 puff inhalation Q12H 1 09/30/25 mcg-4.5 mcg/actuation aerosol inhaler (Symbicort) pantoprazole 40 mg tablet,delayed 40 mg PO DAILY 08/0609/30/25 release Previous Rx's ?Medication ?Instructions ?Recorded nebulizer #1 ea 09/16/24 quad tip cane #1 ea 10/10/24 prednisone 20 mg tablet See Rx Instructions PO .COMP [place] 06/04/25 PRN joint pain flare #30 tabs albuterol sulfate 2.5 mg/3 mL 2.5 mg (3 mL) inhalation QID PRN 07/15/25 (0.083 %) solution for nebulization shortness of breat h or wheezing #75 mL clobetasol 0.05 % topical cream 1 applic topical DAILY PRN skin 07/16/25 irritation #30 grams Bone Growth Stimulator #1 ea 07/21/25 albuterol sulfate 90 mcg/actuation 2 puff inhalation Q ID PRN 07/24/25 aerosol inhaler Shortness Of Breath #8.5 gra ms duloxetine 60 mg capsule,delayed 60 mg PO QAM #90 caps 07/26/25 release amlodipine 10 mg tablet See Rx Instructions .Route 1 11/07/24 .COMPLEX #90 tabs hydrocodone 5 mg-acetaminophen 325 1 tab PO Q4H pain 7 days #42 tabs 09/16/25 mg tablet levocetirizine 5 mg tablet (Xyzal) 5 mg PO DAILY PRN a llergy symptoms 09/17/25 #30 tabs furosemide 40 mg tablet 40 mg PO DAILY PRN edema #30 tabs 09/18/25 potassium chloride 10 mEq 10 meq PO DAILY PRN Lasix #3 0 tabs 09/18/25 tablet,extended release (Klor-Con) adalimumab 40 mg/0.4 mL 40 mg (0.4 mL) SUBCUT Q14D # 2 ea 09/29/25 subcutaneous pen kit (Humira(CF) Pen) pregabalin 100 mg capsule (Lyrica) 100 mg PO BID #180 caps 09/29/25 compression stockings #1 ea 09/30/25 fluoxetine 20 mg capsule See Rx Instructions PO DAILY #60 09/30/25 caps azithromycin 250 mg tablet See Rx Instructions PO .COM PLEX #6 10/04/25 tabs prednisone 10 mg tablet 10 mg PO DIRECTED #21 tab s 10/04/25 Allergies Allergy/AdvReac Type Severity Reaction Status Date / Time montelukast (From Singulair) Allergy Severe tongue Verified 10/03/25 23:15 swelling chlorzoxazone (From Parafon Allergy ALGY-Rash Verified 10/03/25 23:15 Forte DSC) Sulfa (Sulfonamide Allergy ALGY-Hives Verified 10/03/25 23:15 Antibiotics) leflunomide AdvReac Intermediate ADR-Hyperte Verified 10/03/25 23:15 nsion PFSH ED 2 PFSH: Medical History Immunization counseling High risk medication use Seronegative rheumatoid arthritis of both hands Fibromyalgia Polyarthralgia Hypertension Tubular adenoma of colon Tobacco use High risk for hip fracture Osteopenia GERD (gastroesophageal reflux disease) Skin rash Degenerative joint disease (DJD) of lumbar spine Osteoarthritis, generalized Migraines COPD (chronic obstructive pulmonary disease) Asthma Joint pain Surgical History History of hip surgery right Hx of eye surgery History of hysterectomy with bilateral oophorectomy History of appendectomy History of cholecystectomy Family History Mother Diabetes Cancer Dementia Father Diabetes Cancer Brother Diabetes Denies family history of CAD (coronary artery disease) Clotting disorder Hyperlipidemia Psychiatric illness Chronic kidney disease (CKD) Suicide Anesthesia complication Bleeding disorder Family history of premature coronary artery disease Lung disease Hypertension Stroke Social History Smoking and tobacco/nicotine status: current every day tobacco/nicotine user cigarettes Packs smoked per day: 1 Years cigarettes smoked: 43 Alcohol intake: never Substance/Drug Use: never Lives independently: Yes Household members: spouse Marital status: Current occupational status: employed 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 Physical Exam 2 Const: GENERAL APPEARANCE: cooperative and well kempt HENMT: COMMON NORMALS: normocephalic, atraumatic and Normal external nose present HEAD & SCALP: normocephalic and atraumatic FACE & SINUS: normal facial exam and face symmetric NOSE: Normal external nose present Eye: COMMON NORMALS: Equal, round and reactive pupils present and EOMs intact bilaterally PUPIL: Yes Equal, round and reactive pupils present Neck/C-Spine: GENERAL: Yes trachea midline Chest: CHEST: Yes Symmetrical chest wall rise Resp: EFFORT & INSPECTION: Yes tachypneic and Yes labored AUSCULTATION: r ales and wheezes Cardio: COMMON NORMALS: regular rate and regular rhythm RATE: regular rate RHYTHM: regular rhythm GI: COMMON NORMALS: Normal to inspection, nondistended, normoactive bowel sounds present Extremity: OTHER: mild edema Neuro: WILFRED COMA SCALE: document GCS findings [place] coma scale eye opening: Spontaneous [place] coma scale verbal response: Orientated [place] coma scale motor response: Obey commands Wilfred coma scale total score: 15 S ENSORY EXAM: Yes extremities (intact) Psych: COMMON NORMALS: speech normal APPEARANCE: Yes well kempt SPEECH: Yes normal speech Skin: COMMON NORMALS: no rashes or lesions noted GENERAL SKIN EXAM: no rashes or lesions noted Course 2 Vital Signs: Vital signs: Vital Signs Temperature 97.6 F 10/03/25 23:00 Pulse Rate 86 10/04/25 02:41 Respiratory Rate 19 H 10/04/25 02:41 Blood Pressure 137/77 10/04/25 02:41 Pulse Oximetry 97 10/04/25 02:41 Oxygen Delivery Me thod Nasal Cannula 10/04/25 00:21 Oxygen Flow Rate 1 10/04/25 00:21 MDM - SOB/Dyspnea Medical Decision Making She is feeling much improved after breathing treatment, Solu-Medrol, Lasix here. Vitals have been stable. She is above 90% on room air now. CBC is normal. BMP shows a sugar of 147, is otherwise normal. Swabs are negative for flu COVID RSV. BNP is 121. Troponin remained normal at 2 hours with a delta of -0.9. X- ray reveals streaky opacities in the left lung base and hazy on the right. She is covered with Rocephin and Zithromax after blood cultures in the ER. We will continue antibiotics. Placed her on steroids. She will take Lasix as needed Lab Data 10/03/25 23:59 10/03/25 23:59 Labs/Radiology: Radiology Impressions Chest X-Ray 10/03/25 23:50 IMPRESSION: Streaky opacities in the left lung base and slight hazy opacities in the right lung base. Differential includes atelectasis, atypical infectious process and/or aspiration. Recommend clinical correlation. Laboratory Results WBC 7.45 10^3/uL (3.29-11.43) 10/03/25 23:59 RBC 5.02 10^6/uL (3.85-5.65) 10/03/25 23:59 Hgb 13.50 g/dL (11.27-16.99) 10/03/25 23:59 Hct 42.7 % (36-47) 10/03/25 23:59 MCV 85.1 fl (85-98) 10/03/25 23:59 MCH 26.9 pg (27-33) L 10/03/25 23:59 MCHC 31.6 g/dL (30-55) 10/03/25 23:59 RDW 14.4 % (12.1-15.1) 10/03/25 23:59 Plt Count 238 10^3/cmm (157-399) 10/03/25 23:59 MPV 11.2 fL (7.4-10.4) H 10/03/25 23:59 Neut % (Auto) 51.3 % 10/03/25 23:59 Lymph % (Auto) 33.7 % 10/03/25 23:59 [place] % (Auto) 9.3 % 10/03/25 23:59 Eos % (Auto) 4.3 % 10/03/25 23:59 Baso % (Auto) 1.1 % 10/03/25 23:59 Neut # (Auto) 3.83 10^3/uL (1.8-7.7) 10/03/25 23:59 Lymph # (Auto) 2.5 10^3/uL (0.8-4.8) 10/03/25 23:59 [place] # (Auto) 0.7 10^3/uL (0.2-0.9) 10/03/25 23:59 Eos # (Auto) 0.3 10^3/uL (0.0-0.8) 10/03/25 23:59 Baso # (Auto) 0.1 10^3/uL (0.0-0.1) 10/03/25 23:59 Nucleated RBC % (auto) 0 % 10/03/25 23:59 Nucleated RBCs # 0.0 /100WBC 10/03/25 23:59 Sodium 139 mmol/L (136-145) 10/03/25 23:59 Potassium 3.9 mmol/L (3.5-5.1) 10/03/25 23:59 Chloride 102 mmol/L (98-107) 10/03/25 23:59 Carbon Dioxide 27 mmol/L (22-29) 10/03/25 23:59 Anion Gap 13.9 (5-19) 10/03/25 23:59 BUN 10 mg/dL (8-23) 10/03/25 23:59 Creatinine 0.8 mg/dL (0.5-0.9) 10/03/25 23:59 GFR Calculation 71.8 mL/min (90-130) L 10/03/25 23:59 Glucose 147 mg/dL (65-115) H 10/03/25 23:59 Calculated Osmolality 290 mOsm/kg (285-295) 10/03/25 23:59 Lactic Acid 1.3 mmol/L (0.5-2.2) 10/03/25 23:59 Calcium 9.4 mg/dL (8.5-10.5) 10/03/25 23:59 Magnesium 2.1 mg/dL (1.7-2.3) 10/03/25 23:59 Total Bilirubin 0.3 mg/dL (0.15-1.2) 10/03/25 23:59 AST 20 U/L (0-32) 10/03/25 23:59 ALT 18 U/L (0-33) 10/03/25 23:59 Alkaline Phosphatase 153 U/L (35-105) H 10/03/25 23:59 Troponin T Baseline 12 ng/L (0-10) H 10/03/25 23:59 Troponin T 120 Minute 11.13 ng/L (0-10) H 10/04/25 01:48 Delta Troponin T -0.87 ABS# (0-10) L 10/04/25 01:48 NT-Pro-B Natriuret Pep 121 pg/mL (0-125) 10/03/25 23:59 Total Protein 6.7 g/dL (6.6-8.7) 10/03/25 23:59 Albumin 4.3 g/dL (3.5-5.2) 10/03/25 23:59 Globulin 2.4 g/dL (1.3-4.6) 10/03/25 23:59 Influenza A (PCR) Negative (Negative) 10/03/25 23:59 Influenza Type B (PCR) Negative (Negative) 10/03/25 23:59 RSV (PCR) Negative (Negative) 10/03/25 23:59 SARS-CoV-2 (PCR) Negative (Negative) 10/03/25 23:59 All radiology interpretation(s) finalized by discharge Discharge Plan Discharge Patient Disposition: Home Clinical Impression: Atypical pneumonia Condition: Stable Prescriptions: New azithromycin 250 mg tablet See Rx Instructions .ROUTE .COMPLEX Qty: 6 0RF Rx Instructions: For 250 mg dose pack: take 500 mg today (day 1), then 250 mg for 4 days (days 2-5) prednisone 10 mg tablet 10 mg PO DIRECTED Qty: 21 0RF Rx Instructions: 4 [id number], 2 FIvQi9k, 1 QYwGa3r No Action pregabalin [Lyrica] 100 mg capsule 100 mg PO BID Qty: 180 1RF Humira(CF) Pen 40 mg/0.4 mL pen injector kit 40 mg SUBCUT Q14D Qty: 2 5RF dnanllr-rbpvkicrp-edyolf-zinc Tablet 1 tab PO DAILY (DME) compression stockings See Rx Instructions .Route .MEDSUPPLY Qty: 1 0RF Rx Instructions: 20-30 mmHg fluoxetine 20 mg capsule See Rx Instructions PO DAILY Qty: 60 0RF Rx Instructions: orally daily; 1 tab po x 2 weeks then increase to 2 tab po qd (DME) nebulizer See Rx Instructions .Route .MEDSUPPLY Qty: 1 0RF Rx Instructions: As directed (DME) quad tip cane See Rx Instructions .Route .MEDSUPPLY Qty: 1 0RF Rx Instructions: As directed prednisone 20 mg tablet See Rx Instructions PO .COMPLEX PRN (Reason: joint pain flare) Qty: 30 1RF Rx Instructions: Take 1 or 2 tablets by mouth daily for up to 7 days as needed for arthritis flare. albuterol sulfate 2.5 mg /3 mL (0.083 %) solution for nebulization 2.5 mg inhalation QID PRN (Reason: shortness of breath or wheezing) Qty: 75 0RF clobetasol 0.05 % cream 1 applic topical DAILY PRN (Reason: skin irritation) Qty: 30 0RF (DME) Bone Growth Stimulator See Rx Instructions .Route .MEDSUPPLY Qty: 1 0RF Rx Instructions: As directed albuterol sulfate 90 mcg/actuation HFA aerosol inhaler 2 puff inhalation QID PRN (Reason: Shortness Of Breath) Qty: 8.5 2RF duloxetine 60 mg capsule,delayed release(DR/EC) 60 mg PO QAM Qty: 90 0RF amlodipine 10 mg tablet See Rx Instructions .ROUTE .COMPLEX Qty: 90 0RF Dose Instruction: TAKE 1 TABLET BY MOUTH EVERY DAY Rx Instructions: TAKE 1 TABLET BY MOUTH EVERY DAY hydrocodone-acetaminophen 5-325 mg tablet 1 tab PO Q4H 7 Days Qty: 42 0RF levocetirizine [Xyzal] 5 mg tablet 5 mg PO DAILY PRN (Reason: allergy symptoms) Qty: 30 0RF furosemide 40 mg tablet 40 mg PO DAILY PRN (Reason: edema) Qty: 30 0RF potassium chloride [Klor-Con 10] 10 mEq tablet extended release 10 meq PO DAILY PRN (Reason: Lasix) Qty: 30 0RF pantoprazole 40 mg tablet,delayed release (DR/EC) 40 mg PO DAILY Rx Instructions: TAKE 1 TABLET BY MOUTH EVERY DAY budesonide-formoterol [Symbicort] 160-4.5 mcg/actuation HFA aerosol inhaler 2 puff inhalation Q12H Rx Instructions: INHALE 2 PUFFS BY MOUTH EVERY 12 HOURS cholecalciferol (vitamin D3) [Vitamin D3] 50 mcg (2,000 unit) Tablet 50 mcg PO DAILY clonidine HCl 0.1 mg tablet 0.1 mg PO PRN PRN (Reason: bp) Rx Instructions: Take 0.1 mg by mouth daily as needed ;For Systolic >185 diastolic >100. If you are needing this more than once a day you need to follow with your primary care provider. diclofenac sodium [Voltaren Arthritis Pain] 1 % gel 4 g topical QID PRN (Reason: Pain) Rx Instructions: apply to single knee, ankle, foot; for foot includes sole/toes/top of foot Discharge Orders: Discharge ED (Routine); Ordered 10/04/25 Ordered By: Luis Fermin Referrals: Tarah Aquino MD [Primary Care Provider, Family Practice] - 1-3 days Patient Instructions: Pneumonia (ED), Opioid Safety, Pain Management, Patient Portal & Leticia Instructions Activity Restrictions/Additional Instructions: Steroids and antibiotics as directed. Use your inhaler or nebulizer 4 times daily while awake for the next 48 hours, then as needed. Return for any problems. Follow-up with your doctor. Print Language: [place] Coding Level of Care Code ED Hired Help for Nabila [place]brook
[2025-10-04] VITALS (8 sets, daily range): BP systolic 127–140; BP diastolic 75–88; PULSE 78–86; RESP 16–24; O2SAT 92–97
[2025-10-04] MEDS: FUROsemide 10 mg/mL SDV 10mL 60 MG IVP (00:13)
[2025-10-04 00:15] LABS: Hematocrit 42.7 % (36-47); Hemoglobin 13.50 g/dL (11.27-16.99); Mean Corpuscular HGB Conc 31.6 g/dL (30-55); Mean Corpuscular Hemoglobin 26.9 pg (27-33); Mean Corpuscular Volume 85.1 fl (85-98); Nucleated Red Blood Cells % 0 %; Platelet Count 238 10^3/cmm (157-399); Red Blood Count 5.02 10^6/uL (3.85-5.65); White Blood Count 7.45 10^3/uL (3.29-11.43)
[2025-10-04 00:35] LABS: Lactic Sepsis W/Reflex 1.3 mmol/L (0.5-2.2)
[2025-10-04 00:38] LABS: Troponin(5th) Baseline 12 ng/L (0-10)
[2025-10-04 00:47] LABS: Alanine Aminotransferase 18 U/L (0-33); Albumin Level 4.3 g/dL (3.5-5.2); Alkaline Phosphatase 153 U/L (35-105); Anion Gap 13.9 (5-19); Aspartate Amino Transferase 20 U/L (0-32); Blood Urea Nitrogen 10 mg/dL (8-23); Calcium 9.4 mg/dL (8.5-10.5); Carbon Dioxide 27 mmol/L (22-29); Chloride 102 mmol/L (98-107); Globulin 2.4 g/dL (1.3-4.6); Glucose 147 mg/dL (65-115); Magnesium 2.1 mg/dL (1.7-2.3); NT Pro B Type Natriuretic Pept 121 pg/mL (0-125); Osmolality Calculated 290 mOsm/kg (285-295); Potassium 3.9 mmol/L (3.5-5.1); Sodium 139 mmol/L (136-145); Total Protein 6.7 g/dL (6.6-8.7)
[2025-10-04 00:50] LABS: Respiratory Syncytial Virus Ce NEGATIVE (Negative); SARS-CoV-2 PCR NEGATIVE (Negative)
[2025-10-04] MEDS: methylPREDNISolone sod succ 125 mg/2 mL INJ 80 MG IVP (01:33)
[2025-10-04] MEDS: cefTRIAXone 1,000 mg SDV 1000 MG IVP (01:34)
--- NOTE | 2025-10-04 02:04 | ECG_ITS ---
[facility] Test Date: 2025-10-04 Pat Name: Hayley Chun Department: Room: Gender: Female Unit Tender: : 1960 Requested By: Luis Roy Order Number: [id number] Reading MD: Measurements Intervals [place] Rate: 86 P: 65 [place]: 149 QRS: 35 QRSD: 93 T: 53 QT: 405 QTc: 486 Interpretive Statements SINUS RHYTHM WITH FREQUENT SUPRAVENTRICULAR PREMATURE COMPLEXES ABNORMAL RHYTHM ECG [email or web address]
== END 2025-10-04 02:43 | disposition home or self-care (01) ==
PROVIDERS: Emergency Provider Emergency Medicine; PCP Family Medicine
DX: J18.9 Pneumonia, unspecified organism (principal); Z11.52 Encounter for screening for COVID-19; F17.210 Nicotine dependence, cigarettes, uncomplicated; J44.9 Chronic obstructive pulmonary disease, unspecified
CPT/HCPCS: 36415; 71045; 80053; 83605; 83735; 83880; 84484; 85025; 87040; 87637; 93005; 94640; 96365; 96375; 99285; J0456; J0696; J1938; J2919; J7050; J9999

== ENCOUNTER → 2025-10-05 10:52 | Outpatient (BNVA) | payer MEDICARE, MEDICAID, SELFPAY | PROVIDERS: PCP Family Medicine; Visit Provider Family Medicine | DX: R60.0 Localized edema (principal) | CPT/HCPCS: 80048 ==

== ENCOUNTER → 2025-10-08 12:53 | Outpatient (BNVA) | payer MEDICARE, MEDICAID, SELFPAY | PROVIDERS: PCP Family Medicine; Visit Provider Orthopaedic Surgery | DX: Z98.890 Other specified postprocedural states (principal); Z48.89 Encounter for other specified surgical aftercare | CPT/HCPCS: 99024 ==

== ENCOUNTER 2025-10-16 11:26 | Outpatient (CLI) | payer MEDICARE, MEDICAID, SELFPAY ==
[2025-10-16 12:37] LABS: Blood Urea Nitrogen 6 mg/dL (8-23)
== END 2025-10-16 11:27 | disposition home or self-care (01) ==
LOC: LAB 11:27
PROVIDERS: PCP Family Medicine; Visit Provider Internal Medicine Rheumatology
DX: R79.89 Other specified abnormal findings of blood chemistry (principal)
CPT/HCPCS: 36415; 82565; 84520